=== PATIENT | female | born 1960 | race Hispanic/Latino ===

== ENCOUNTER 2017-12-17 16:30 | Emergency (ER) | payer OTHER ==
--- OUTSIDE RECORDS SUMMARY | 2017-12-17 16:32 | XMS REPORT ---
:1960 [facility] Team Providers Name Role Phone Ambrose Gonzales Provider Role Unavailable Allergies, Adverse Reactions, Alerts Substance Reaction Event Type N.K.D.A. Info Not Available Non Drug Allergy Problems Problem Type Condition Code Onset Dates Condition Status Assessment Mixed hyperlipidemia E78.2 Active Assessment Body mass index (BMI) of 40.0-44.9 Z68.41 Active in adult Assessment Essential hypertension I10 Active Problem Hyperglycemia R73.9 Active Problem Depression with anxiety F41.8 Active Problem Essential hypertension I10 Active Problem Gastroesophageal reflux disease K21.9 Active without esophagitis Problem Body mass index (BMI) of 40.0-44.9 Z68.41 Active in adult Problem Mixed hyperlipidemia E78.2 Active Problem Primary insomnia F51.01 Active Assessment Depression with anxiety F41.8 Active Assessment Viral upper respiratory tract J06.9 Active infection Assessment Hyperglycemia R73.9 Active Medications Medication Code Code Instructions Start End Status Dosage System Date Date Pyridium [facility] 50275352760 200 MG Orally Active 1 tablet Three times a after day meals Carvedilol [facility] 43387989134 12.5 MG Orally October 07, Active bid 2017 Lopid [facility] 79928429980 600 MG Orally Active 1 tablet Twice a day Esomeprazole [facility] [address]-54 20 MG Orally Active 1 tablet Magnesium Once a day Contrave [facility] 35420166813 8-90 MG Orally Active 2 tablets Twice a day Hyzaar [facility] [address]-85 100-25 Orally Active 1 tablet Once a day Aspirin [facility] 58947184929 81 MG Orally Active 1 tablet Once a day Metformin HCl [facility] 53225531201 500 MG Orally Active 1 tablet Twicece a day with a meal Lexapro [facility] 82059679867 10 MG Orally Active 1 tablet Once a day Carvedilol [facility] 25331324376 12.5 mg AM, October 07, Active with food 6.25 mg PM 2017 Orally as directed Trazodone HCl [facility] 82704973875 50 MG Orally Active 1 tablet Once a day at bedtime as needed Fluticasone [facility] 25289931528 50 MCG/ACT October 07, Active 1 spray in Propionate Nasally Once a 2018 each day nostril Lopressor [facility] [address]-22 50 Orally Twice September Active 1 tablet a day , with food 2017 Results No Known Results Summary Purpose eClinicalWorks Submission
--- OUTSIDE RECORDS SUMMARY | 2017-12-17 16:32 | XMS REPORT ---
:1960 Author Organization e[employer] Care Team Providers Name Role Phone Romy Loyola Provider Role Unavailable Allergies, Adverse Reactions, Alerts Substance Reaction Event Type N.K.D.A. Info Not Available Non Drug Allergy Problems Problem Type Condition Code Onset Dates Condition Status Assessment Acute pain of right hip M25.551 Active Problem Body mass index (BMI) of 40.0-44.9 Z68.41 Active in adult Problem Essential hypertension I10 Active Problem Hyperglycemia R73.9 Active Problem Acute pain of right hip M25.551 Active Problem Primary insomnia F51.01 Active Problem Gastroesophageal reflux disease K21.9 Active without esophagitis Problem Depression with anxiety F41.8 Active Problem Mixed hyperlipidemia E78.2 Active Medications Medication Code Code Instructions Start End Status Dosage System Date Date Lexapro [facility] 10152740280 10 MG Orally Active 1 tablet Once a day Pyridium [facility] 64053529918 200 MG Orally Active 1 tablet Three times a after day meals Carvedilol [facility] 25119553005 12.5 MG Orally October 07 Active bid 2017 Contrave [facility] 93253846368 8-90 MG Orally Active 2 tablets Twice a day Metformin HCl [facility] 59185040580 500 MG Orally Active 1 tablet Twicece a day with a meal Aspirin [facility] 77839727262 81 MG Orally Active 1 tablet Once a day Diclofenac ND 37449604292 50 MG Orally October 13October Active 1 tablet Sodium Twice a day 2017, with food 2018 or milk Lopid [facility] 76306702746 600 MG Orally Active 1 tablet Twice a day Carvedilol [facility] 54634423504 12.5 mg AM, October 07, Active with food 6.25 mg PM 2017 Orally as directed Esomeprazole [facility] [address]-05 20 MG Orally Active 1 tablet Magnesium Once a day Trazodone HCl [facility] 29526790351 50 MG Orally Active 1 tablet Once a day at bedtime as needed Fluticasone [facility] 17095087266 50 MCG/ACT October 07, Active 1 spray in Propionate Nasally Once a 2018 each day nostril Hyzaar [facility] [address]-91 100-25 Orally Active 1 tablet Once a day Results No Known Results Summary Purpose eClinicalWorks Submission
--- OUTSIDE RECORDS SUMMARY | 2017-12-17 16:32 | XMS REPORT ---
:1960 Author Organization eClinicalWorks Care Team Providers Name Role Phone Ambrose Gonzales Provider Role Unavailable Allergies No Known Allergies Problems Problem Type Condition Code Onset Dates Condition Status Assessment Right hip pain M25.551 Active Problem Body mass index (BMI) of 40.0-44.9 Z68.41 Active in adult Assessment Depression with anxiety F41.8 Active Problem Essential hypertension I10 Active Problem Hyperglycemia R73.9 Active Problem Acute pain of right hip M25.551 Active Problem Primary insomnia F51.01 Active Problem Gastroesophageal reflux disease K21.9 Active without esophagitis Problem Depression with anxiety F41.8 Active Problem Mixed hyperlipidemia E78.2 Active Medications Medication Code Code Instructions Start End Status Dosage System Date Date Fluticasone [facility] 98316911083 50 MCG/ACT October 07, Active 1 spray in Propionate Nasally Once a 2018 each day nostril Contrave [facility] 75573340299 8-90 MG Orally Active 2 tablets Twice a day Hyzaar [facility] [address]-69 100-25 Orally Active 1 tablet Once a day Aspirin ND 24312796127 81 MG Orally Active 1 tablet Once a day Metformin HCl ND 97728027240 500 MG Orally Active 1 tablet Twicece a day with a meal Diclofenac ND 54430819385 50 MG Orally October 13October Active 1 tablet Sodium Twice a day 2017, with food 2018 or milk Trazodone HCl ND 34326702108 50 MG Orally Active 1 tablet Once a day at bedtime as needed Carvedilol ND 61169535121 12.5 MG Orally October 07, Active bid 2017 Esomeprazole [facility] [address]-57 20 MG Orally Active 1 tablet Magnesium Once a day Lopid ND 00958506628 600 MG Orally Active 1 tablet Twice a day Pyridium ND 54033181541 200 MG Orally Active 1 tablet Three times a after day meals Lexapro [facility] 00783721604 10 MG Orally Active 1 tablet Once a day Carvedilol [facility] 61829480858 12.5 mg AM, October 07, Active with food 6.25 mg PM 2018 Orally as directed Results No Known Results Summary Purpose eClinicalWorks Submission
[2017-12-17 17:33] LABS: Absolute Lymphocytes (CBC) 0.8 K/uL (0.7-4.9); Absolute Monocytes 0.6 K/uL (0.1-1.3); Absolute Neutrophil 6.5 K/uL (1.8-8.0); Basophils % 0.3 % (0-1.3); Eosinophils % 0.2 % (0-4.4); Hematocrit 39.7 % (36.0-45.0); Lymphocytes % 10.4 % (15.3-44.8); MCH 30.9 pg (27.0-35.0); MCV 88.1 fL (80-100); MPV 7.7 fL (7.6-11.3); Monocytes % 8.1 % (3.3-12.3); RBC Red Blood Cell Count 4.51 M/uL (3.86-4.86)
[2017-12-17] MEDS ORDERED: NA CHLORIDE 0.9% 1,000 ML ONE (17:33)
[2017-12-17] MEDS ORDERED: ONDANSETRON 4 MG/2 ML VIAL ONE (17:33)
[2017-12-17] MEDS ORDERED: FAMOTIDINE 20 MG/2 ML VIAL IV ONE (17:33)
[2017-12-17 17:54] LABS: Urine Bacteria 20-50 /HPF (<20); Urine RBC <5 /HPF (NONE SEEN)
[2017-12-17 17:55] LABS: Urine Culture Reflex Order NOT NEEDED
[2017-12-17 18:32] LABS: Albumin 4.5 g/dL (3.4-5.0); Bilirubin Direct 0.1 mg/dL (0-0.2); Bilirubin Total 0.4 mg/dL (0.2-1.0); Magnesium 1.9 mg/dL (1.8-2.4); Phosphorus 2.9 mg/dL (2.5-4.9); Protein, Total 9.2 g/dL (6.4-8.2)
[2017-12-17 18:38] LABS: Potassium 3.1 mmol/L (3.5-5.1)
--- NOTE | 2017-12-17 20:04 | RAD REPORT ---
EXAM DESCRIPTION: CT - Abdomen Pelvis W Contrast - 12/17/2017 7:28 pm CLINICAL HISTORY: diarrhea;Abd pain;Nausea / vomiting<Reason For Exam>diarrhea;Abd pain;Nausea / vom iting COMPARISON: <Comparisons> April 2017 TECHNIQUE: Biphasic, helical CT imaging of the abdomen and pelvis was performed following 100 ml non -ionic IV contrast. Oral contrast was given. All CT scans are performed using dose optimization technique as appropriate and may include automated exposure control or mA/KV adjustment according to patient size. FINDINGS: No suspicious findings in the lung bases. The liver, spleen, and pancreas show no suspicious focal findings. Liver shows diffuse fatty infiltra tion. Benign cyst is present anterior right lobe. Cholecystectomy clips are present. No biliary tree dilatation. Symmetric renal function is seen with no hydronephrosis or suspicious renal mass. No pyelonephritis o r acute renal parenchymal process. Contracted urinary bladder shows no suspicious finding. Right adrenal gland is normal. Left adrenal mass is present 2.5 cm in size. The 40 Hounsfield unit at tenuation value does not meet simple adenoma criteria. No dilated bowel loops or bowel wall thickening. Patient has a few small all gastrohepatic ligament l ymph nodes as well as multiple small mesenteric lymph nodes. No free air, free fluid or inflammatory stranding. No hernia, mass or bulky lymphadenopathy. Appendix is normal. No suspicious bony findings. IMPRESSION: No appendicitis or acute GI process identifiable. Patient does have small mesenteric lymph nodes present that could indicate mesenteric adenitis or non specific enteritis. Diffuse fatty infiltration of the liver. Gallbladder is absent. A 2.5 centimeter left adrenal mass is present. This is most likely an adenoma but does not meet stric t diagnostic criteria. No clear change from April 2017. Probability of a malignant process is felt to be low. Repeat imaging in 6 months could be performed to assure stability. Follow-up outpatient a drenal protocol MR study could be performed if there are patient or physician concerns.
--- NOTE | 2017-12-17 20:37 | ER ---
Nurse's Notes [facility] Name: Shirley San Age: 57 yrs Sex: Female : 1960 Arrival Date: 12/17/2017 Time: 16:33 Bed 23 Private MD: Ambrose Gonzales Diagnosis: Nausea and vomiting;Diarrhea, unspecified Presentation: 12/17 16:44 Presenting complaint: Patient states: Reports vomiting and diarrhea for 4 days. Seen by aj PCP 2 days ago. Transition of care: patient was not received from another setting of care. Onset of symptoms was December 13, 2017. Risk Assessment: Do you want to hurt yourself or someone else? Patient reports no desire to harm self or others. Initial Sepsis Screen: Does the patient meet any 2 criteria? No. Patient's initial sepsis screen is negative. Does the patient have a suspected source of infection? No. Patient's initial sepsis screen is negative. Care prior to arrival: None. 16:44 Method Of Arrival: Ambulatory 16:44 Acuity: SAÚL 3 aj Triage Assessment: 16:46 General: Appears in no apparent distress. comfortable, obese, Behavior is calm, aj cooperative, appropriate for age. Pain: Denies pain. Neuro: Level of Consciousness is awake, alert, obeys commands, Oriented to person, place, time, situation, Appropriate for age. Respiratory: Airway is patent Respiratory effort is even, unlabored, Respiratory pattern is regular, symmetrical. GI: Reports diarrhea, vomiting. Derm: Skin is intact, is healthy with good turgor, Skin is pink, warm \T\ dry. normal. Historical: - Allergies: 16:46 No Known Allergies; aj - Home Meds: 16:46 Hyzaar Oral [Active]; Lopressor Oral [Active]; Metformin Oral [Active]; aj - PMHx: 16:46 Diabetes - NIDDM; High Cholesterol; Hypertension; aj - Immunization history:: Adult Immunizations up to date. - Social history:: Smoking status: Patient/guardian denies using tobacco. - Ebola Screening: : Patient negative for fever greater than or equal to 101.5 degrees Fahrenheit, and additional compatible Ebola Virus Disease symptoms Patient denies exposure to infectious person Patient denies travel to an Ebola-affected area in the 21 days before illness onset No symptoms or risks identified at this time. Screenin:51 Abuse screen: Denies threats or abuse. Nutritional screening: No deficits noted. tl3 Tuberculosis screening: No symptoms or risk factors identified. Fall Risk None identified. Assessment: 16:51 General: Appears uncomfortable, well groomed, well developed, well nourished, Behavior tl3 is calm, cooperative, appropriate for age. Pain: Complains of pain in abdomen. Neuro: Level of Consciousness is awake, alert, obeys commands, Oriented to person, place, time, situation, Appropriate for age. Cardiovascular: Patient's skin is warm and dry. Respiratory: Airway is patent Respiratory effort is even, unlabored, Respiratory pattern is regular, symmetrical. GI: Reports upper abdominal pain, cramping, diarrhea, nausea, vomiting, last four days pt has had vomiting and diarrhea, unable to tolerate fluids. : No signs and/or symptoms were reported regarding the genitourinary system. EENT: No signs and/or symptoms were reported regarding the EENT system. Derm: No signs and/or symptoms reported regarding the dermatologic system. Musculoskeletal: No signs and/or symptoms reported regarding the musculoskeletal system. 18:20 Reassessment: Patient appears in no apparent distress at this time. No changes from tl3 previously documented assessment. Patient and/or family updated on plan of care and expected duration. Pain level reassessed. Patient is alert, oriented x 3, equal unlabored respirations, skin warm/dry/pink. 19:22 Reassessment: Patient appears in no apparent distress at this time. No changes from tl3 previously documented assessment. Patient and/or family updated on plan of care and expected duration. Pain level reassessed. Patient is alert, oriented x 3, equal unlabored respirations, skin warm/dry/pink. pt being transported to CT. 20:28 Reassessment: Patient appears in no apparent distress at this time. No changes from tl3 previously documented assessment. Patient and/or family updated on plan of care and expected duration. Pain level reassessed. Patient is alert, oriented x 3, equal unlabored respirations, skin warm/dry/pink. awaiting results of CT, pt resting quietly, no needs at this time. Vital Signs: 16:46 BP 100 / 46; Pulse 102; Resp 16; Temp 98.2; Pulse Ox 98% on R/A; Weight 94.35 kg; aj Height 4 ft. 11 in. (149.86 cm); 16:51 BP 115 / 70; Pulse 96; Resp 18; Pulse Ox 97% on R/A; tl3 17:56 BP 110 / 75; Pulse 95; Resp 18; Pulse Ox 100% ; tl3 18:20 BP 110 / 76; Pulse 70; Resp 18; Pulse Ox 98% on R/A; tl3 20:28 BP 107 / 56; Pulse 95; Resp 18; Pulse Ox 96% on R/A; tl3 16:46 Body Mass Index 42.01 (94.35 kg, 149.86 cm) ED Course: 16:33 Patient arrived in ED. sb2 16:33 Ambrose Gonzales MD is Private Physician. sb2 16:45 Triage completed. aj 16:46 Arm band placed on right wrist. Patient placed in an exam room. aj 16:47 Sneha Cramer, RN is Primary Nurse. aj 16:47 Roque Mccloud PA is PHCP. cp 16:47 Shimon Mendoza MD is Attending Physician. cp 16:48 Marie Medellin, LIZETTE is Primary Nurse. tl3 16:51 Patient has correct armband on for positive identification. Bed in low position. Pulse tl3 ox on. NIBP on. Warm blanket given. 16:51 No provider procedures requiring assistance completed. tl3 17:20 Initial lab(s) drawn, by az, sent to lab. Urine collected: clean catch specimen, clear, jp3 joana colored, Amount Voided: 5mL. 17:25 Inserted saline lock: 22 gauge in right antecubital area, using aseptic technique. jp3 Blood collected. 17:35 Pillow given. jp3 17:35 Phosphorus Sent. jp3 17:35 Magnesium Sent. jp3 17:35 Amylase, Serum Sent. jp3 17:35 Basic Metabolic Panel Sent. jp3 17:35 CBC with Diff Sent. jp3 17:35 Creatinine for Radiology Sent. jp3 17:35 Hepatic Function Sent. jp3 17:35 Lipase Sent. jp3 17:36 Urine Microscopic Only Sent. jp3 17:55 CT that pt has completed drinking her contrast. tl3 19:[address] via wheelchair. nj 19:26 CT completed. Patient tolerated procedure well. Patient moved back from CT. nj 19:28 CT Abd/Pelvis - W/Contrast In Process Unspecified. EDMS 20:58 IV discontinued, intact, bleeding controlled, No redness/swelling at site. Pressure tl3 dressing applied. Administered Medications: 17:37 Drug: NS 0.9% 1000 ml Route: IV; Rate: 1 bolus; Site: right antecubital; Delivery: tl3 Primary tubing; 19:19 Follow up: IV Status: Completed infusion; IV Intake: 1000ml tl3 17:38 Drug: Zofran 4 mg Route: IVP; Infused Over: 2 mins; Site: right antecubital; tl3 19:20 Follow up: Response: No adverse reaction tl3 17:38 Drug: Pepcid 20 mg Route: IVP; Infused Over: 2 mins; Site: right antecubital; tl3 19:20 Follow up: Response: No adverse reaction tl3 20:42 Drug: Potassium Effervescent Tablet 50 mEq Route: PO; tl3 20:59 Follow up: Response: No adverse reaction tl3 20:57 Drug: Zofran 4 mg Route: PO; tl3 20:59 Follow up: Response: Medication administered at discharge. tl3 Intake: 19:19 IV: 1000ml; Total: 1000ml. tl3 Outcome: 20:34 Discharge ordered by . cp 20:58 Discharged to home ambulatory. tl3 20:58 Condition: stable 20:58 Discharge instructions given to patient, Instructed on discharge instructions, follow up and referral plans. medication usage, Demonstrated understanding of instructions, follow-up care, medications, Prescriptions given X 2. 21:00 Patient left the ED. tl3 Signatures: Dispatcher [employer] EDMS Sneha Cramer, RN RN Roque Mason PA PA Vasu Arias Sheri sb2 Marie Medellin RN RN tl3 Luis Bond jp3
--- NOTE | 2017-12-17 20:38 | EDPHYS ---
Physician Documentation [facility] Name: Shirley San Age: 57 yrs Sex: Female : 1960 Arrival Date: 12/17/2017 Time: 16:33 Bed 23 Private MD: Ambrose Gonzales ED Physician Shimon Mendoza HPI: 12/17 17:05 This 57 yrs old Female presents to ER via Ambulatory with complaints of cp Nausea/Vomiting/Diarrhea, Headache. 17:05 The patient presents to the emergency department with nausea, that is moderate, cp vomiting, that is intermittent, diarrhea, that is intermittent, abdominal pain, of the right upper quadrant and left upper quadrant. Onset: The symptoms/episode began/occurred 4 day(s) ago. Historical: - Allergies: 16:46 No Known Allergies; aj - Home Meds: 16:46 Hyzaar Oral [Active]; Lopressor Oral [Active]; Metformin Oral [Active]; aj - PMHx: 16:46 Diabetes - NIDDM; High Cholesterol; Hypertension; aj - Immunization history:: Adult Immunizations up to date. - Social history:: Smoking status: Patient/guardian denies using tobacco. - Ebola Screening: : Patient negative for fever greater than or equal to 101.5 degrees Fahrenheit, and additional compatible Ebola Virus Disease symptoms Patient denies exposure to infectious person Patient denies travel to an Ebola-affected area in the 21 days before illness onset No symptoms or risks identified at this time. ROS: 17:10 Constitutional: Negative for body aches, chills, fever, poor PO intake. cp 17:10 Eyes: Negative for injury, pain, redness, and discharge. cp Exam: 17:15 Constitutional: The patient appears in no acute distress, alert, awake, cp non-diaphoretic, non-toxic, well developed, well nourished. 17:15 Head/Face: Normocephalic, atraumatic. cp 17:15 Eyes: Pupils equal round and reactive to light, extra-ocular motions intact. Lids and lashes normal. Conjunctiva and sclera are non-icteric and not injected. Cornea within normal limits. Periorbital areas with no swelling, redness, or edema. ENT: Nares patent. No nasal discharge, no septal abnormalities noted. Tympanic membranes are normal and external auditory canals are clear. Oropharynx with no redness, swelling, or masses, exudates, or evidence of obstruction, uvula midline. Mucous membranes moist. Chest/axilla: Normal chest wall appearance and motion. Nontender with no deformity. No lesions are appreciated. 17:15 Cardiovascular: Rate: tachycardic, Rhythm: regular, Edema: is not appreciated, JVD: is not appreciated. 17:15 Respiratory: the patient does not display signs of respiratory distress, Respirations: normal, no use of accessory muscles, no retractions, no splinting, no tachypnea, labored breathing, is not present, Breath sounds: are clear throughout, no decreased breath sounds, no stridor, no wheezing. 17:15 Abdomen/GI: Inspection: obese Bowel sounds: active, all quadrants, Palpation: abdomen is soft and non-tender, in all quadrants, rebound tenderness, is not appreciated, voluntary guarding, is not appreciated, involuntary guarding, is not appreciated. 17:15 Back: pain, is absent, ROM is normal. 17:15 Skin: cellulitis, is not appreciated, no rash present. 17:15 Neuro: Orientation: to person, place \T\ time. Mentation: lucid, able to follow commands, Cerebellar function: is grossly normal, Motor: moves all fours, strength is normal, Sensation: no obvious gross deficits. Vital Signs: 16:46 BP 100 / 46; Pulse 102; Resp 16; Temp 98.2; Pulse Ox 98% on R/A; Weight 94.35 kg; aj Height 4 ft. 11 in. (149.86 cm); 16:51 BP 115 / 70; Pulse 96; Resp 18; Pulse Ox 97% on R/A; tl3 17:56 BP 110 / 75; Pulse 95; Resp 18; Pulse Ox 100% ; tl3 18:20 BP 110 / 76; Pulse 70; Resp 18; Pulse Ox 98% on R/A; tl3 20:28 BP 107 / 56; Pulse 95; Resp 18; Pulse Ox 96% on R/A; tl3 16:46 Body Mass Index 42.01 (94.35 kg, 149.86 cm) aj MDM: 16:56 Patient medically screened. cp 18:00 Differential diagnosis: gastritis, pancreatitis, appendicitis, diverticulitis, viral cp gastroenteritis, gastroenteritis. 20:32 Data reviewed: vital signs, nurses notes, lab test result(s), radiologic studies, CT cp scan. 20:32 Counseling: I had a detailed discussion with the patient and/or guardian regarding: the cp historical points, exam findings, and any diagnostic results supporting the discharge/admit diagnosis, lab results, radiology results, to return to the emergency department if symptoms worsen or persist or if there are any questions or concerns that arise at home. Response to treatment: the patient's symptoms have markedly improved after treatment, VSS. Nausea and pain improved. Will discharge to home for continued monitoring. Special discussion: Based on the patient's Hx, exam, and Dx evaluation, there is no indication for emergent surgery or inpatient Tx. It is understood by the patient/guardian that if the Sx's persist or worsen they need to return immediately for re-evaluation. 12/17 16:59 Order name: Amylase, Serum; Complete Time: 20:14 12/17 16:59 Order name: Basic Metabolic Panel; Complete Time: 20:14 12/17 20:29 Interpretation: Normal except: NA 132; CL 93; GLUC 129; BUN 20; GFR 57; K 3.1. 12/17 16:59 Order name: CBC with Diff; Complete Time: 20:14 12/17 20:28 Interpretation: Normal except: PLT 456; CHICHI% 81.0; LYM% 10.4. 12/17 16:59 Order name: Creatinine for Radiology; Complete Time: 20:14 12/17 20:29 Interpretation: Normal except: GFR 57. 12/17 16:59 Order name: Hepatic Function; Complete Time: 20:14 12/17 20:28 Interpretation: Normal except: AST 54; TP 9.2; GLOB 4.7; A/G 1.0. 12/17 16:59 Order name: Lipase; Complete Time: 20:14 cp 12/17 16:59 Order name: Urine Microscopic Only; Complete Time: 20:14 12/17 20:28 Interpretation: Normal except: UWBC 5-10; UBACT 20-50; SQEPI 5-10. 12/17 16:59 Order name: CT Abd/Pelvis - W/Contrast; Complete Time: 20:14 cp 12/17 16:59 Order name: Magnesium; Complete Time: 20:14 cp 12/17 16:59 Order name: Phosphorus; Complete Time: 20:14 cp 12/17 17:57 Order name: Urine Dipstick--Ancillary (enter results) bd 12/17 16:59 Order name: Urine Test (obtain specimen); Complete Time: 17:35 cp 12/17 16:59 Order name: IV Saline Lock; Complete Time: 17:36 cp 12/17 16:59 Order name: Labs collected and sent; Complete Time: 17:36 cp 12/17 16:59 Order name: Urine Dipstick-Ancillary (obtain specimen); Complete Time: 17:36 cp 12/17 20:30 Order name: PO challenge; Complete Time: 20:36 cp Administered Medications: 17:37 Drug: NS 0.9% 1000 ml Route: IV; Rate: 1 bolus; Site: right antecubital; Delivery: tl3 Primary tubing; 19:19 Follow up: IV Status: Completed infusion; IV Intake: 1000ml tl3 17:38 Drug: Zofran 4 mg Route: IVP; Infused Over: 2 mins; Site: right antecubital; tl3 19:20 Follow up: Response: No adverse reaction tl3 17:38 Drug: Pepcid 20 mg Route: IVP; Infused Over: 2 mins; Site: right antecubital; tl3 19:20 Follow up: Response: No adverse reaction tl3 20:42 Drug: Potassium Effervescent Tablet 50 mEq Route: PO; tl3 20:59 Follow up: Response: No adverse reaction tl3 20:57 Drug: Zofran 4 mg Route: PO; tl3 20:59 Follow up: Response: Medication administered at discharge. tl3 Disposition: 12/18 08:10 Co-signature as Attending Physician, Shimon Mendoza MD. rn Disposition: 12/17/17 20:34 Discharged to Home. Impression: Nausea and vomiting, Diarrhea, unspecified. - Condition is Stable. - Discharge Instructions: Food Choices to Help Relieve Diarrhea, Adult, Diarrhea, Adult, Nausea and Vomiting, Adult. - Prescriptions for Bentyl 20 mg Oral Tablet - take 1 tablet by ORAL route every 6 hours As needed; 20 tablet. Zofran 4 mg Oral Tablet - take 1 tablet by ORAL route every 12 hours As needed; 20 tablet. - Medication Reconciliation Form, Thank You Letter, Antibiotic Education, Prescription Opioid Use form. - Follow up: Private Physician; When: 1 - 2 days; Reason: Recheck today's complaints. - Problem is new. - Symptoms have improved. Signatures: Dispatcher [employer] EDSneha Johnson RN RN Shimon Robles MD MD rn Page, Corey, PA PA cp Lowrey, Tammy, RN RN tl3 Corrections: (The following items were deleted from the chart) 12/17 17:43 12/16 17:10 Constitutional: Negative for body aches, chills, fever, poor PO intake, cp cp 12/17 17:12/16 17:10 Eyes: Negative for injury, pain, redness, and discharge, cp cp 12/17 17:12/16 17:10 ENT: Negative for drainage from ear(s), ear pain, sore throat, difficulty cp swallowing, difficulty handling secretions, cp 12/17 17:43 12/16 17:10 Cardiovascular: Negative for chest pain, edema, palpitations, cp cp 12/17 17:12/16 17:10 Respiratory: Negative for cough, shortness of breath, wheezing, cp cp 12/17 17:43 12/16 17:10 Abdomen/GI: Positive for abdominal pain, nausea, vomiting, and diarrhea, cp Negative for constipation, anorexia, dysphagia, hematemesis, black/tarry stool, rectal bleeding, cp 12/17 17:43 12/16 17:10 Back: Negative for pain at rest, pain with movement, radiated pain, cp cp 12/17 17:43 12/16 17:10 : Negative for urinary symptoms, cp cp 12/17 17:12/16 17:10 Skin: Negative for cellulitis, rash, cp cp 12/17 16:12/16 17:10 Neuro: Positive for headache, Negative for altered mental status, cp dizziness, syncope, near syncope, weakness, cp 12/17 17:43 12/16 17:10 All other systems are negative, cp cp 12/17 20: 20:28 Normal except: NA 132; CL 93; GLUC 129; BUN 20; GFR 57. cp cp 21:00 20:34 12/17/2017 20:34 Discharged to Home. Impression: Nausea and vomiting; Diarrhea, tl3 unspecified. Condition is Stable. Forms are Medication Reconciliation Form, Thank You Letter, Antibiotic Education, Prescription Opioid Use. Follow up: Private Physician; When: 1 - 2 days; Reason: Recheck today's complaints. Problem is new. Symptoms have improved. cp
[2017-12-17] MEDS ORDERED: POTASSIUM 25 MEQ EFFERV TAB ONE (20:42)
[2017-12-17] MEDS ORDERED: ONDANSETRON 4 MG (ODT) TAB ONE (21:01)
[2017-12-17 21:23] LABS: Urine Blood TRACE (NEG); Urine Glucose NEGATIVE (NEG); Urine Protein 2+ (NEG); Urine Specific Gravity >1.030 (1.005-1.030)
[2017-12-17 21:27] VITALS: TEMP 98.2
[2017-12-17 21:31] VITALS: BP 107/56; O2SAT 96
== END 2017-12-17 21:00 | disposition home or self-care (01) ==
LOC: ER 16:30
DX: R11.2 Nausea with vomiting, unspecified (principal); R19.7 Diarrhea, unspecified; E11.9 Type 2 diabetes mellitus without complications; I10 Essential (primary) hypertension
CPT/HCPCS: 36415; 74177; 80048; 80076; 82150; 83690; 83735; 84100; 85025; 96361; 96374; 96375; 99284; J2405; J7030; Q9967; 81003; 81015

== ENCOUNTER 2019-07-26 16:06 | Emergency (ER) | payer OTHER ==
--- OUTSIDE RECORDS SUMMARY | 2019-07-26 16:09 | XMS REPORT ---
:1960 Author Organization e[employer] Care Team Providers Name Role Phone Trice Kaur Provider Role Unavailable Allergies No Known Allergies Problems Problem Type Condition Code Onset Dates Condition Status Problem Primary insomnia F51.01 Active Problem Depression with anxiety F41.8 Active Problem Mixed hyperlipidemia E78.2 Active Problem Gastroesophageal reflux disease K21.9 Active without esophagitis Problem Seasonal allergic rhinitis, J30.2 Active unspecified trigger Problem Body mass index (BMI) of 40.0-44.9 Z68.41 Active in adult Problem Muscle strain T14.8XXA Active Problem Essential hypertension I10 Active Problem Hyperglycemia R73.9 Active Problem Diabetes 1.5, 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
--- OUTSIDE RECORDS SUMMARY | 2019-07-26 16:09 | XMS REPORT ---
:1960 Author Organization [employer] Care Team Providers Name Role Phone Romy Loyola Provider Role Unavailable Allergies, Adverse Reactions, Alerts Substance Reaction Event Type N.K.D.A. Info Not Available Non Drug Allergy Problems Problem Type Condition Code Onset Dates Condition Status Problem Primary insomnia F51.01 Active Problem Depression with anxiety F41.8 Active Problem Mixed hyperlipidemia E78.2 Active Assessment Muscle strain T14.8XXA Active Assessment Acute pain of right hip M25.551 Active Problem Gastroesophageal reflux disease K21.9 Active without esophagitis Problem Seasonal allergic rhinitis, J30.2 Active unspecified trigger Problem Body mass index (BMI) of 40.0-44.9 Z68.41 Active in adult Problem Muscle strain T14.8XXA Active Problem Essential hypertension I10 Active Problem Hyperglycemia R73.9 Active Problem Diabetes 1.5, 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 Problem Acute pain of right hip M25.551 Active Medications Medication Code Code Instructions Start End Status Dosage System Date Date Lopid [facility] 88289699831 600 MG Active TAKE ONE TABLET BY MOUTH TWICE A DAY Fluticasone [facility] 37495060577 50 MCG/ACT Active 1 spray Propionate Nasally Once a in each day nostril Victoza [facility] [address]-02 Active not defined Lipitor ND 55619602395 20 MG Active TAKE ONE TABLET BY MOUTH EVERY NIGHT AT BEDTIME Farxiga ND 09906346106 5mg By Mouth Dec Active 1 Dailly 2018 Pyridium ND 56330416583 200 MG Orally Active 1 tablet Three times a after day meals Metformin HCl ND 03411112958 850 MG Orally Active 1 tablet Twicece a day with a meal Coreg [facility] 28795649970 12.5 MG Active TAKE ONE TABLET BY MOUTH TWICE A DAY Claritin ND 57311642849 10 MG Orally June Active 1 tablet Once a day 2018 HydrOXYzine HCl ND 63628998365 50 MG Orally Dec 16, Active 1 tablet every 6 hrs 2017 as needed Lexapro [facility] 51538887900 20 MG Active TAKE ONE TABLET BY MOUTH DAILY Carvedilol [facility] 09403883082 25 MG Orally Active bid bid Esomeprazole [facility] 88226068601 20 MG Active TAKE ONE Magnesium CAPSULE BY MOUTH DAILY Trazodone HCl [facility] 06554401081 50 MG Orally Active 1 tablet Once a day at bedtime as needed Aspirin [facility] 27683932032 81 MG Orally Active 1 tablet Once a day Methocarbamol [facility] 51861383907 500 MG Orally Dec 09, Dec 16, Active 1 tablet every 8 hrs 2018 2018 for muscle pain Esomeprazole [facility] [address]-06 20 MG Orally Active 1 tablet Magnesium Once a day Results No Known Results Summary Purpose eClinicalWorks Submission
--- NOTE | 2019-07-26 16:29 | ER ---
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 ll1 Couldn't breathe well. Fell onto her knees. Finally, vomited up the pill. Stated she had chest pain just after this episode, it has resolved now. Coronavirus screen: Proceed with normal triage. Patient denies a cough. Patient denies shortness of breath or difficulty breathing. Patient denies measured and/or subjective temperature greater than 100.4F prior to today's visit. Patient denies travel on a cruise ship or to a country the [facility] currently lists as an affected area. Patient denies contact with known and/or suspected case of COVID-19. Ebola Screen: Patient denies travel to an Ebola-affected area in the 21 days before illness onset. Initial Sepsis Screen: Does the patient meet any 2 criteria? No. Patient's initial sepsis screen is negative. Does the patient have a suspected source of infection? No. Patient's initial sepsis screen is negative. Risk Assessment: Do you want to hurt yourself or someone else? Patient reports no desire to harm self or others. Onset of symptoms was July 26, 2019. 16:11 Method Of Arrival: EMS: [facility] 1 16:11 Acuity: SAÚL 4 1 16:21 Care prior to arrival: None. Mechanism of Injury: No Mechanism of Injury. Trauma event ll1 details: Injury occurred in the [facility]. Trauma Activation: Not Applicable Physician: ED Physician; Name: ; Notified At: ; Arrived At: Physician: General Surgeon; Name: ; Notified At: ; Arrived At: Physician: Radiology; Name: ; Notified At: ; Arrived At: Physician: Respiratory; Name: ; Notified At: ; Arrived At: Physician: Lab; Name: ; Notified At: ; Arrived At: Historical: - Allergies: 16:15 No Known Allergies; ll1 - PMHx: 16:15 Hypertension; High Cholesterol; Diabetes - NIDDM; ll1 - Immunization history:: Adult Immunizations up to date. - Social history:: Smoking status: Patient denies any tobacco usage or history of. Patient/guardian denies using alcohol, street drugs, tobacco products. - Immunization history: Last tetanus immunization: unknown. Screenin:16 Abuse screen: Denies threats or abuse. Nutritional screening: No deficits noted. ll1 Tuberculosis screening: No symptoms or risk factors identified. Fall Risk None identified. Total Walker Fall Scale indicates No Risk (0-24 pts). Primary Survey: 16:17 NO uncontrolled hemorrhage observed. A: The patient is alert. Airway: patent. ll1 Breathing/Chest: Respiratory pattern: regular, Respiratory effort: spontaneous, unlabored, Breath sounds: clear, Chest inspection: symmetrical rise and fall of the chest. Circulation: Cardiac rhythm: sinus rhythm Heart tones present. Pulses: palpable right radial artery and left radial artery. Skin color: pink, Skin temperature: warm, dry. Disability Alert. Exposure/Environment: A warming method has been applied: A warm blanket has been provided to the patient. 16:36 Reassessment Airway Airway Patent Breathing/Chest Respiratory pattern Regular ll1 Respiratory effort Spontaneous Unlabored Breath sounds Clear Chest inspection Symmetrical Circulation Heart tones Present Pulses Palpable Color [place] Temperature Warm. Assessment: 16:20 General: Appears in no apparent distress. Behavior is calm, cooperative. Pain: Denies ll1 pain. Neuro: No deficits noted. Cardiovascular: No deficits noted. Respiratory: Airway is patent Trachea midline Respiratory effort is even, unlabored, Respiratory pattern is regular, symmetrical, Breath sounds are clear bilaterally. Denies cough, shortness of breath. GI: No deficits noted. 16:36 Reassessment: Patient appears in no apparent distress at this time. No changes from ll1 previously documented assessment. Patient and/or family updated on plan of care and expected duration. Pain level reassessed. Patient is alert, oriented x 3, equal unlabored respirations, skin warm/dry/pink. Vital Signs: 16:11 BP 133 / 85; Pulse 83; Resp 18; Temp 98.3; Pulse Ox 97% ; Pain 0/10; ll1 16:33 BP 128 / 82; Pulse 87; Resp 18; Pulse Ox 96% ; Pain 0/10; ll1 Nora Coma Score: 16:18 Eye Response: spontaneous(4). Verbal Response: oriented(5). Motor Response: obeys ll1 commands(6). Total: 15. Trauma Score (Adult): 16:18 Eye Response: spontaneous(1); Verbal Response: oriented(1); Motor Response: obeys ll1 commands(2); Systolic BP: > 89 mm Hg(4); Respiratory Rate: 10 to 29 per min(4); Nora Score: 15; Trauma Score: 12 ED Course: 16:10 Patient arrived in ED. ll1 16:11 [facility]il[facility]olasco [facility] pm1 16:11 Roque Ramírez MD is Attending Physician. pm1 16:14 Triage completed. ll1 16:16 Arm band placed on Patient placed in an exam room, on a stretcher. ll1 16:19 Patient has correct armband on for positive identification. Bed in low position. Call ll1 light in reach. Side rails up X 1. 16:19 Patient maintains SpO2 saturation greater than 95% on room air. ll1 16:22 Thermoregulation: warm blanket given to patient. ll1 16:33 Gen De Luna, RN is Primary Nurse. ll1 16:37 No provider procedures requiring assistance completed. Patient did not have IV access ll1 during this emergency room visit. Administered Medications: No medications were administered Intake: 16:18 PO: 0ml; Total: 0ml. ll1 Outcome: 16:28 Discharge ordered by . pm1 16:37 Discharged to home ambulatory. ll1 16:37 Condition: stable 16:37 Discharge instructions given to patient, Instructed on discharge instructions, follow up and referral plans. Demonstrated understanding of instructions, follow-up care. 16:37 Patient's length of stay was not longer than 2 hours. ll1 16:38 Patient left the ED. ll1 Signatures: Maximiliano Nolasco NP PHARMACY HELPER pm1 Gen De Luna, RN RN ll1
--- NOTE | 2019-07-26 16:29 | EDPHYS ---
Physician Documentation [facility] Name: Shirley San Age: 58 yrs Sex: Female : 1960 Arrival Date: 07/26/2019 Time: 16:10 Bed 24 Private MD: ED Physician Roque Ramírez HPI: 07/25 16:21 This 58 yrs old Female presents to ER via EMS with complaints of pm1 Choked/Choking. 16:21 The patient presents with choking on multivitamin. Onset: The symptoms/episode pm1 began/occurred just prior to arrival. Severity of symptoms: in the emergency department the symptoms have resolved, at home prior to EMS arrival. Associated signs and symptoms: The patient has no apparent associated signs or symptoms. The patient has not experienced similar symptoms in the past. Patient was taking her multivitamin with tea. Her multivitamin got stuck in her throat and she felt like she could not talk and she was wheezing. No Heimlich maneuver by herself or by family. She stuck her fingers into the back of her mouth and vomited up the pill. Patient felt fine on EMS arrival but her family wanted her to be evaluated. Patient without any complaints or symptoms on arrival. Historical: - Allergies: 16:15 No Known Allergies; ll1 - PMHx: 16:15 Hypertension; High Cholesterol; Diabetes - NIDDM; ll1 - Immunization history:: Adult Immunizations up to date. - Social history:: Smoking status: Patient denies any tobacco usage or history of. Patient/guardian denies using alcohol, street drugs, tobacco products. - Immunization history: Last tetanus immunization: unknown. ROS: 16:21 Constitutional: Negative for fever, chills, and weight loss, ENT: Negative for injury, pm1 pain, and discharge, Neck: Negative for injury, pain, and swelling, Cardiovascular: Negative for chest pain, palpitations, and edema, Respiratory: Negative for shortness of breath, cough, wheezing, and pleuritic chest pain, Abdomen/GI: Negative for abdominal pain, nausea, vomiting, diarrhea, and constipation, Back: Negative for injury and pain, MS/Extremity: Negative for injury and deformity, Skin: Negative for injury, rash, and discoloration. 16:21 All other systems are negative. Exam: 16:21 Constitutional: This is a well developed, well nourished patient who is awake, alert, pm1 and in no acute distress. Head/Face: Normocephalic, atraumatic. Chest/axilla: Normal chest wall appearance and motion. Nontender with no deformity. No lesions are appreciated. Cardiovascular: Regular rate and rhythm. No pulse deficits. Respiratory: Lungs have equal breath sounds bilaterally, clear to auscultation and percussion. No rales, rhonchi or wheezes noted. No increased work of breathing, no retractions or nasal flaring. Abdomen/GI: Soft, non-tender, with normal bowel sounds. No distension or tympany. No guarding or rebound. No evidence of tenderness throughout. Back: No spinal tenderness. No costovertebral tenderness. Full range of motion. Skin: Warm, dry with normal turgor. Normal color with no rashes, no lesions, and no evidence of cellulitis. MS/ Extremity: Pulses equal, no cyanosis. Neurovascular intact. Full, normal range of motion. 16:21 Neuro: Exam negative for acute changes, Orientation: is normal, Motor: is normal, moves all fours. Vital Signs: 16:11 BP 133 / 85; Pulse 83; Resp 18; Temp 98.3; Pulse Ox 97% ; Pain 0/10; ll1 16:33 BP 128 / 82; Pulse 87; Resp 18; Pulse Ox 96% ; Pain 0/10; ll1 Nora Coma Score: 16:18 Eye Response: spontaneous(4). Verbal Response: oriented(5). Motor Response: obeys ll1 commands(6). Total: 15. Trauma Score (Adult): 16:18 Eye Response: spontaneous(1); Verbal Response: oriented(1); Motor Response: obeys ll1 commands(2); Systolic BP: > 89 mm Hg(4); Respiratory Rate: 10 to 29 per min(4); [place] Score: 15; Trauma Score: 12 MDM: 16:11 Patient medically screened. pm1 16:21 Data reviewed: vital signs. Data interpreted: Pulse oximetry: on room air is 97 %. pm1 Interpretation: normal. Counseling: I had a detailed discussion with the patient and/or guardian regarding: the historical points, exam findings, and any diagnostic results supporting the discharge/admit diagnosis, the need for outpatient follow up, to return to the emergency department if symptoms worsen or persist or if there are any questions or concerns that arise at home. Administered Medications: No medications were administered Disposition: 07/26 07:39 Co-signature as Attending Physician, Roque Ramírez MD I agree with the assessment and [facility] plan of care. Disposition: 07/26/19 16:28 Discharged to Home. Impression: Foreign body in pharynx - resolved. - Condition is Stable. - Discharge Instructions: Choking, Adult. - Medication Reconciliation Form, Thank You Letter, Antibiotic Education, Prescription Opioid Use form. - Follow up: Emergency Department; When: As needed; Reason: Worsening of condition. Follow up: Private Physician; When: 2 - 3 days; Reason: Recheck today's complaints, Continuance of care, Re-evaluation by your physician. - Problem is new. - Symptoms are resolved. Signatures: Roque Ramírez, Maximiliano Woodard MD, cha, TECHNICAL ACCOUNT MANAGER TECHNICAL ACCOUNT MANAGER pm1 Gen De Luna, RN RN ll1 Corrections: (The following items were deleted from the chart) 07/25 16:38 16:28 07/26/2019 16:28 Discharged to Home. Impression: Foreign body in pharynx - ll1 resolved. Condition is Stable. Forms are Medication Reconciliation Form, Thank You Letter, Antibiotic Education, Prescription Opioid Use. Follow up: Emergency Department; When: As needed; Reason: Worsening of condition. Follow up: Private Physician; When: 2 - 3 days; Reason: Recheck today's complaints, Continuance of care, Re-evaluation by your physician. Problem is new. Symptoms are resolved. pm1
== END 2019-07-26 16:38 | disposition home or self-care (01) ==
LOC: ER 16:06
DX: T17.298A Other foreign object in pharynx causing other injury, initial encounter (principal); I10 Essential (primary) hypertension
CPT/HCPCS: 99284

== ENCOUNTER 2020-10-02 14:23 | Emergency (ER) | payer OTHER ==
--- NOTE | 2020-10-02 16:26 | EDPHYS ---
Physician Documentation [facility] Name: Shirley San Age: 59 yrs Sex: Female : 1960 Arrival Date: 10/02/2020 Time: 14:27 Bed 12 Private MD: ED Physician Roque Ramírez HPI: 10/02 16:19 This 59 yrs old Female presents to ER via Ambulatory with complaints of Left cp Ankle Pain. 16:20 The patient presents with pain, that is acute. The complaints affect the left lateral cp ankle. Context: resulted from an unknown cause, the patient can fully bear weight, the patient is able to ambulate, with mild difficulty. Onset: The symptoms/episode began/occurred yesterday. Modifying factors: the symptoms are aggravated by weight bearing. 16:20 Associated signs and symptoms: Pertinent negatives calf tenderness, numbness, weakness. cp 16:20 Treatment prior to arrival includes: no previous treatment. cp Historical: - Allergies: 14:36 unknown antibiotic; ss - PMHx: 14:36 Diabetes - NIDDM; High Cholesterol; Hypertension; ss - Immunization history:: Adult Immunizations up to date. - Social history:: Smoking status: Patient denies any tobacco usage or history of. ROS: 16:21 Constitutional: Negative for body aches, chills, fever, poor PO intake. cp 16:21 Cardiovascular: Negative for chest pain. cp 16:21 Respiratory: Negative for cough, shortness of breath, wheezing. 16:21 Abdomen/GI: Negative for abdominal pain, nausea, vomiting, and diarrhea. 16:21 Back: Negative for pain at rest, pain with movement. 16:21 MS/extremity: Positive for pain, swelling, tenderness, of the left lateral ankle. 16:21 All other systems are negative. Exam: 16:23 Constitutional: The patient appears in no acute distress, alert, awake, non-toxic, well cp developed, well nourished. 16:23 Head/Face: Normocephalic, atraumatic. cp 16:23 Chest/axilla: Inspection: normal. 16:23 Cardiovascular: Rate: normal. 16:23 Respiratory: the patient does not display signs of respiratory distress, Respirations: normal, no use of accessory muscles, no retractions. 16:23 Musculoskeletal/extremity: Extremities: grossly normal except: noted in the left lateral ankle: pain, swelling, tenderness, ROM: limited passive range of motion due to pain, in the left ankle, Pulses: noted to be 2+ in the left dorsalis pedis artery, Sensation intact. Achilles tendon palpated and intact. Vital Signs: 14:33 BP 105 / 60; Pulse 85; Resp 14; Temp 98.6(TE); Pulse Ox 99% on R/A; Weight 68.04 kg; ss Height 4 ft. 11 in. (149.86 cm); Pain 7/10; 14:33 Body Mass Index 30.30 (68.04 kg, 149.86 cm) ss MDM: 16:08 Patient medically screened. [facility] 16:22 Data reviewed: vital signs, nurses notes, radiologic studies, plain films. Test cp interpretation: by ED physician or midlevel provider: xrays of left ankle negative for fracture. 16:25 Differential diagnosis: dislocation, closed fracture, tendonitis, sprain, strain. 16:25 Counseling: I had a detailed discussion with the patient and/or guardian regarding: the cp historical points, exam findings, and any diagnostic results supporting the discharge/admit diagnosis, radiology results. 10/02 15:55 Order name: Ankle Left 3 View XRAY iw 10/02 16:22 Order name: Crutches cp 10/02 16:22 Order name: Ankle Splint: Aircast cp Administered Medications: No medications were administered Disposition: 16:30 Chart complete. 10/03 07:12 Co-signature as Attending Physician, Roque Ramírez MD I agree with the assessment and [facility] plan of care. Disposition: 10/02/20 16:26 Discharged to Home. Impression: Pain in left ankle and joints of left foot. - Condition is Stable. - Discharge Instructions: Elastic Bandage and RICE, Ankle Pain. - Prescriptions for Ibuprofen 800 mg Oral Tablet - take 1 tablet by ORAL route every 8 hours As needed take with food; 30 tablet. - Medication Reconciliation Form, Thank You Letter, Antibiotic Education, Prescription Opioid Use form. - Follow up: Chad Joel MD; When: 1 week; Reason: pain continues. - Problem is new. - Symptoms have improved. Signatures: Dispatcher [employer] Roque Cruz MD MD cha Williams, Irene, RN RN Ruby Bolton RN RN Page, Roque, PA PA cp Corrections: (The following items were deleted from the chart) 10/02 16:57 16:26 10/02/2020 16:26 Discharged to Home. Impression: Pain in left ankle and joints of iw left foot. Condition is Stable. Forms are Medication Reconciliation Form, Thank You Letter, Antibiotic Education, Prescription Opioid Use. Follow up: Dr. Chad Joel; When: 1 week; Reason: pain continues. Problem is new. Symptoms have improved. cp
--- NOTE | 2020-10-02 16:26 | ER ---
Nurse's Notes [facility] Name: Shirley San Age: 59 yrs Sex: Female : 1960 Arrival Date: 10/02/2020 Time: 14:27 Bed 12 Private MD: Diagnosis: Pain in left ankle and joints of left foot Presentation: 10/02 14:33 Chief complaint: Patient states: L foot/ankle pain that began yesterday. No known ss injury. PT states, "I may have over done it walking.". Coronavirus screen: Client denies travel out of the [place] in the last 14 days. Ebola Screen: Patient denies exposure to infectious person. Patient denies travel to an Ebola-affected area in the 21 days before illness onset. Initial Sepsis Screen: Does the patient meet any 2 criteria? No. Patient's initial sepsis screen is negative. Does the patient have a suspected source of infection? No. Patient's initial sepsis screen is negative. Risk Assessment: Do you want to hurt yourself or someone else? Patient reports no desire to harm self or others. Onset of symptoms was October 01, 2020. 14:33 Method Of Arrival: Ambulatory ss 14:33 Acuity: SAÚL 4 ss Historical: - Allergies: 14:36 unknown antibiotic; ss - PMHx: 14:36 Diabetes - NIDDM; High Cholesterol; Hypertension; ss - Immunization history:: Adult Immunizations up to date. - Social history:: Smoking status: Patient denies any tobacco usage or history of. Vital Signs: 14:33 BP 105 / 60; Pulse 85; Resp 14; Temp 98.6(TE); Pulse Ox 99% on R/A; Weight 68.04 kg; ss Height 4 ft. 11 in. (149.86 cm); Pain 7/10; 14:33 Body Mass Index 30.30 (68.04 kg, 149.86 cm) ED Course: 14:27 Patient arrived in ED. mr 14:36 Triage completed. ss 14:36 Arm band placed on right wrist. ss 15:50 Anahy Rossi, LIZETTE is Primary Nurse. iw 16:08 Roque Mccloud PA is PHCP. cp 16:08 Roque Ramírez MD is Attending Physician. cp 16:20 Ankle Left 3 View XRAY In Process Unspecified. EDMS 16:25 Chad Joel MD is Referral Physician. cp Administered Medications: No medications were administered Outcome: 16:26 Discharge ordered by . cp 16:57 Patient left the ED. iw Signatures: Dispatcher [employer] EDOR Chiquis Alvarenga Anahy Rossi, RN RN iw Ruby Bolton RN RN ss Roque Mccloud, PA PA cp
--- NOTE | 2020-10-02 16:35 | RAD REPORT ---
EXAM DESCRIPTION: RAD - Ankle Left 3 View - 10/02/2020 4:20 pm CLINICAL HISTORY: Pain;Swelling COMPARISON: No comparisons FINDINGS: No fracture, dislocation or periosteal reaction. Tibiotalar joint effusion suspected. Soft tissue swelling is present along the anterior and lateral aspect of the joint. No joint space narrow ing. Small Achilles and moderate plantar spur. IMPRESSION: Soft tissue swelling and suspected joint effusion. No acute bone finding. Plantar and Achilles spurs are present.
[2020-10-02 17:23] VITALS: BP 105/60; TEMP 98.6; O2SAT 99
== END 2020-10-02 16:57 | disposition home or self-care (01) ==
LOC: ER 14:23
DX: M25.572 Pain in left ankle and joints of left foot (principal); I10 Essential (primary) hypertension
CPT/HCPCS: 99282

== ENCOUNTER 2020-10-24 23:55 | Emergency (ER) | payer OTHER ==
--- NOTE | 2020-10-25 03:04 | ER ---
Nurse's Notes [facility] Name: Shirley San Age: 59 yrs Sex: Female : 1960 Arrival Date: 10/25/2020 Time: 00:32 Bed DIS2 Private MD: Diagnosis: Coronavirus infection, unspecified Presentation: 10/25 00:42 Ebola Screen: No symptoms or risks identified at this time. Onset of symptoms was October. 00:42 Chief complaint: Patient states: Reports she was around a family member who was ea recently diagnosed with covid. Coronavirus screen: reports possible covid exposure. Initial Sepsis Screen: Does the patient meet any 2 criteria? No. Patient's initial sepsis screen is negative. Does the patient have a suspected source of infection? No. Patient's initial sepsis screen is negative. Risk Assessment: Do you want to hurt yourself or someone else? Patient reports no desire to harm self or others. 00:42 Method Of Arrival: Ambulatory ea 00:42 Acuity: SAÚL 5 ea Historical: - Allergies: 00:43 unknown antibiotic; ea - Home Meds: 00:43 Metformin Oral [Active]; Lopressor Oral [Active]; Hyzaar Oral [Active]; ea - PMHx: 00:43 Hypertension; High Cholesterol; Diabetes - NIDDM; ea - Immunization history:: Adult Immunizations up to date. - Social history:: Smoking status: unknown. Screenin:42 Abuse screen: Denies threats or abuse. Nutritional screening: No deficits noted. ea Tuberculosis screening: No symptoms or risk factors identified. Fall Risk None identified. Assessment: 00:53 General: Appears in no apparent distress. Behavior is calm, cooperative, appropriate ea for age. Pain: Denies pain. Neuro: Level of Consciousness is awake, alert, obeys commands, Oriented to person, place, time. Cardiovascular: Patient's skin is warm and dry. Respiratory: Airway is patent Respiratory effort is even, unlabored, Respiratory pattern is regular, symmetrical. Derm: Skin is pink, warm \T\ dry. 03:14 Reassessment: Patient and/or family updated on plan of care and expected duration. Pain ea level reassessed. Patient is alert, oriented x 3, equal unlabored respirations, skin warm/dry/pink. Discharge instruction given to patient verbalized the understanding of instruction. Pt left ED ambulatory tolerating well. Vital Signs: 01:57 BP 159 / 81; Pulse 80; Resp 16; Temp 97.8; Pulse Ox 98% ; ea ED Course: 00:32 Patient arrived in ED. bp1 00:43 Triage completed. ea 00:43 Patient has correct armband on for positive identification. Bed in low position. Call ea light in reach. 00:43 Arm band placed on right wrist. Patient placed in an exam room, on a stretcher, on ea pulse oximetry. 00:53 Shayna Turner, LIZETTE is Primary Nurse. ea 01:26 Shiraz Washburn MD is Attending Physician. [facility] 02:35 No provider procedures requiring assistance completed. ea 03:15 Patient did not have IV access during this emergency room visit. ea Administered Medications: No medications were administered Outcome: 03:03 Discharge ordered by . 7 03:15 Discharged to home ambulatory. ea 03:15 Condition: stable 03:15 Discharge instructions given to patient, Instructed on discharge instructions, follow up and referral plans. Demonstrated understanding of instructions, follow-up care. 03:15 Patient left the ED. ea Signatures: Shayna Turner, LIZETTE RN Jelena Lawton [facility] Shiraz Washburn MD MD 7
--- NOTE | 2020-10-25 03:04 | EDPHYS ---
Physician Documentation [facility] Name: Shirley San Age: 59 yrs Sex: Female : 1960 Arrival Date: 10/25/2020 Time: 00:32 Bed DIS2 Private MD: ED Physician Shiraz Washburn HPI: 10/25 02:56 This 59 yrs old Female presents to ER via Ambulatory with complaints of COVID mh7 Exposure. 02:56 The patient or guardian reports. mh7 02:57 Exposure to COVID. mh7 02:57 Onset: The symptoms/episode began/occurred 4 day(s) ago. Severity of symptoms: At their mh7 worst the symptoms were very mild 3 day(s) ago, in the emergency department the symptoms are unchanged. States that she was exposed to a family member that tested positive for COVID. She has had runny nose and sinus congestion.. Historical: - Allergies: 00:43 unknown antibiotic; ea - Home Meds: 00:43 Metformin Oral [Active]; Lopressor Oral [Active]; Hyzaar Oral [Active]; ea - PMHx: 00:43 Hypertension; High Cholesterol; Diabetes - NIDDM; ea - Immunization history:: Adult Immunizations up to date. - Social history:: Smoking status: unknown. ROS: 02:57 Constitutional: Negative for fever, chills, and weight loss, Eyes: Negative for injury, mh7 pain, redness, and discharge, Neck: Negative for injury, pain, and swelling, Cardiovascular: Negative for chest pain, palpitations, and edema, Respiratory: Negative for shortness of breath, cough, wheezing, and pleuritic chest pain, Abdomen/GI: Negative for abdominal pain, nausea, vomiting, diarrhea, and constipation, Back: Negative for injury and pain, : Negative for injury, bleeding, discharge, and swelling, MS/Extremity: Negative for injury and deformity, Skin: Negative for injury, rash, and discoloration, Neuro: Negative for headache, weakness, numbness, tingling, and seizure, Psych: Negative for depression, anxiety, suicide ideation, homicidal ideation, and hallucinations, Allergy/Immunology: Negative for hives, rash, and allergies, Endocrine: Negative for neck swelling, polydipsia, polyuria, polyphagia, and marked weight changes, Hematologic/Lymphatic: Negative for swollen nodes, abnormal bleeding, and unusual bruising. Exam: 02:57 Constitutional: This is a well developed, well nourished patient who is awake, alert, mh7 and in no acute distress. Head/Face: Normocephalic, atraumatic. Eyes: Pupils equal round and reactive to light, extra-ocular motions intact. Lids and lashes normal. Conjunctiva and sclera are non-icteric and not injected. Cornea within normal limits. Periorbital areas with no swelling, redness, or edema. ENT: Nares patent. No nasal discharge, no septal abnormalities noted. Tympanic membranes are normal and external auditory canals are clear. Oropharynx with no redness, swelling, or masses, exudates, or evidence of obstruction, uvula midline. Mucous membranes moist. Chest/axilla: Normal chest wall appearance and motion. Nontender with no deformity. No lesions are appreciated. Cardiovascular: Regular rate and rhythm with a normal S1 and S2. No gallops, murmurs, or rubs. Normal PMI, no JVD. No pulse deficits. Respiratory: Lungs have equal breath sounds bilaterally, clear to auscultation and percussion. No rales, rhonchi or wheezes noted. No increased work of breathing, no retractions or nasal flaring. Abdomen/GI: Soft, non-tender, with normal bowel sounds. No distension or tympany. No guarding or rebound. No evidence of tenderness throughout. Back: No spinal tenderness. No costovertebral tenderness. Full range of motion. Skin: Warm, dry with normal turgor. Normal color with no rashes, no lesions, and no evidence of cellulitis. MS/ Extremity: Pulses equal, no cyanosis. Neurovascular intact. Full, normal range of motion. Neuro: Awake and alert, GCS 15, oriented to person, place, time, and situation. Cranial nerves II-XII grossly intact. Motor strength 5/5 in all extremities. Sensory grossly intact. Cerebellar exam normal. Normal gait. Psych: Awake, alert, with orientation to person, place and time. Behavior, mood, and affect are within normal limits. Vital Signs: 01:57 BP 159 / 81; Pulse 80; Resp 16; Temp 97.8; Pulse Ox 98% ; ea MDM: 02:57 Differential Diagnosis Sinusitis, Rhinorrhea, Viral Syndrome. Data reviewed: vital [facility] signs, lab test result(s), COVID Positive. Data interpreted: Pulse oximetry: on room air is 98 %. Interpretation: normal. Counseling: I had a detailed discussion with the patient and/or guardian regarding: the historical points, exam findings, and any diagnostic results supporting the discharge/admit diagnosis, the presence of at least one elevated blood pressure reading (>120/80) during this emergency department visit, lab results, the need for outpatient follow up, to return to the emergency department if symptoms worsen or persist or if there are any questions or concerns that arise at home. Response to treatment: the patient's symptoms have markedly improved after treatment. 03:03 Patient medically screened. [facility] 10/25 01:47 Order name: SARS-COV-2 RT PCR EDMS Administered Medications: No medications were administered Disposition Summary: 10/25/20 03:03 Discharge Ordered Location: Home [facility] Problem: new [facility] Symptoms: have improved [facility] Condition: Stable [facility] Diagnosis - Coronavirus infection, unspecified [facility] Followup: [facility] - With: Private Physician - When: 1 - 2 days - Reason: Worsening of condition, Recheck today's complaints, Continuance of care, Re-evaluation by your physician Discharge Instructions: - Discharge Summary Sheet [facility] - COVID-19 [facility] Forms: - Medication Reconciliation Form [facility] - Thank You Letter [facility] - Antibiotic Education [facility] - Prescription Opioid Use [facility] Signatures: Dispatcher [employer] EDShayna Quiñones RN RN ea Holmes, Maurice, MD MD [facility] Corrections: (The following items were deleted from the chart) 00:44 00:42 CORONAVIRUS+MR.LAB.BRZ ordered. [facility]
[2020-10-25 03:21] VITALS: BP 159/81; TEMP 97.8; O2SAT 98
--- OUTSIDE RECORDS SUMMARY | 2020-10-25 15:04 | XMS REPORT | Continuity of Care Document ---
:1960 Author Organization [facility] t Address [address] [place] [address] Care Team Providers Name Role Phone COWLING Attending Clinician Unavailable Christiane RN Attending Clinician Unavailable Lab, Fam Pob I Attending Clinician Unavailable Jamal RN Attending Clinician Unavailable Payers Payer Name Policy Type Policy Number Effective Date Expiration Date Shaka LAGUNAS [place] [id number] 2016 MEDICAID STAR+[id number] 00:00:00 Problems Condition Condition Condition Status Onset Resolution Last Treating Co mments Source Name Details Category Date Date Treatment Clinician Date Mixed Mixed Problem Active [facility] hyperlipid hyperlipid Mikki kes - emia emia Memoria l [facility] Body mass Body mass Problem Active [facility] index index [facility] - (BMI) of (BMI) of Memori a 40.0-44.9 40.0-44.9 l in adult in adult Outpat i ent Clinics Essential Essential Problem Active [facility] hypertensi hypertensi Mikki kes - on on [facility]oria l [facility] Hyperglyce Hyperglyce Problem Active C HI [facility] artie artie [facility] - Memoria l [facility] Depression Depression Problem Active C HI [facility] with with [facility] - anxiety anxiety Memoria l [facility] Gastroesop Gastroesop Problem Active C HI [facility] hageal hageal Lukes - reflux reflux Memoria disease disease l without without Outpati esophagiti esophagiti en t s s Clinics Primary Primary Problem Active [facility] insomnia insomnia [facility] - Memoria l [facility] Acute pain Acute pain Problem Active C HI [facility] of right of right [facility] - hip hip Memoria l [facility] 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 Medications Ordered Filled Start Stop Current Ordering Indication Dosage Frequency Signature Comments Components Source Medication Medication Date Date Medication? Clinician (SIG) Name Name Methocarbam Methocarbam 2018- No Romy [address] ol ol -09 12- [place] [facility] - 00:00: 00:00 Memoria 00 :00 [facility] Claritin Claritin 2018- No Romy [address] 3-19 - [place] [facility] - 00:00: 00:00 Memoria 00 :00 [facility] HydrOXYzine HydrOXYzine Yes Romy [address] HCl HCl 12-16 [place] as needed [facility] - 00:00: Memoria 00 [facility] Fluticasone Fluticasone Yes Romy [address] Propionate Propionate 6-19 [place] each Mkiki kes - 00:00: nostril Memoria 00 [facility] Esomeprazol Esomeprazol Yes Romy [address] e Magnesium e Magnesium [place] [facility] - Memoria l [facility] Lopid Lopid Yes Romy TAKE ONE [facility] [place] TABLET BY Lukes - MOUTH Memoria TWICE A l DAY [facility] Aspirin Aspirin Yes Romy [address] [place] [facility] - Memoria l [facility] Trazodone Trazodone Yes Romy [address] HCl HCl [place] at bedtime [facility] - as needed Memoria [facility] Coreg Coreg Yes Romy TAKE ONE [facility] [place] TABLET BY [facility]ukes - MOUTH Memoria TWICE A l DAY [facility] Pyridium Pyridium Yes Romy [address] [place] after [facility]ukes - meals Memoria l [facility] Lipitor Lipitor Yes Romy TAKE ONE [facility] [place] TABLET BY [facility] - MOUTH Memoria EVERY l NIGHT AT [facility] BED[facility] ent Clinics Carvedilol Carvedilol Yes Romy bid [facility] [place] [facility] - Memoria l [facility] Lexapro Lexapro Yes Romy TAKE ONE [facility] [place] TABLET BY [facility]ukes - MOUTH Memoria DAILY l [facility] Metformin Metformin Yes Romy [address] HCl HCl [place] with a [facility] - meal Memoria l [facility] Esomeprazol Esomeprazol Yes Roym TAKE ONE [facility] e Magnesium e Magnesium [place] CAPSULE BY [facility]ukes - MOUTH Memoria DAILY l [facility] Victoza Victoza Yes Romy not [facility] [place] defined [facility] - Memoria l [facility] Farga No Romy [address] [facility] -15 [place] [facility] - 00:00 Memoria :00 l [facility] Immunizations Ordered Filled Immunization Date Status Comments Sour e Immunization Name Name Flucelvax Flucelvax 2018-01-[address] [facility] - 00:00:00 [facility] Procedures This patient has no known procedures. Encounters Start End Encounter Admission Attending Care Care Encounter Source Date/Time Date/Time Type Type Clinicians Facility Department ID 2020-09-07 Outpatient DORIAN [facility] [id number] [place] 14:24:41 [facility] 2020-01-21 Inpatient MHSE MELO [id number] [place] 05:17:00 [facility] 2019-11-05 2019-11-05 Telephone TANIA [place] [id number] 00:00:00 00:00:00 Kobe JOYCE [id number] [facility] [id number] 019 2019-11-01 2019-11-01 Laboratory Lab, [facility] [id number] 13:27:22 13:47:22 Only Fam [facility] [id number] [place] [id number] Professio [phone] nal [address] 2019-10-17 2019-10-17 Telephone TANIA Berry [id number] 00:00:00 00:00:00 Precious JOYCE [id number] [facility] [id number] 2019-10-15 2019-10-15 Laboratory Lab, [facility] [id number] 11:46:21 12:06:21 Only Fam Pob I [facility] [id number] [place] [id number] Professio [phone] nal [address] 2019-02-22 2019-02-22 Outpatient Allie Kelley [id number] [facility] 14:43[facility] 14[facility]43[facility]00 [facility] - DO DO [facility] Outpati ent Clinics 2018-12-09 2018-12-09 [facility] [id number] 17:30:00 17:30:00 t Urgent [facility] L [facility] Outpati ent Clinics 2018-07-07 2018-07-07 [facility] [id number] 11:30:00 11:30:00 t [facility] Medicine Outpati ent Clinics 2018-06-23 2018-06-23 [facility] [id number] 11:00:00 11:00:00 t [facility] Medicine l Medicine Outpati ent Clinics 2018-01-22 2018-01-22 [facility] [id number] 09:00:00 09:00:00 [facility] Medicine Outpati ent Clinics 2017-12-29 2017-12-29 [facility] [id number] 15:51:00 15:51:00 t [facility] Medicine Outpati ent Clinics 2017-12-16 2017-12-16 [facility] [id number] 09:15:00 09:15:00 t [facility] Medicine Outpati ent Clinics 2017-10-15 2017-10-15 [facility] [id number] 16:15:00 16:15:00 t Urgent Urgent Care L [facility] 2017-10-13 2017-10-13 Outpatient Ilda Malik [id number] 14:45:00 14:45:00 t [facility] 2017-10-07 2017-10-07 Outpatient Ilda Malik [id number] 13:00:00 13:00:00 [facility] ent Clinics Results This patient has no known results.
== END 2020-10-25 03:15 | disposition home or self-care (01) ==
LOC: ER 23:55
DX: U07.1 COVID-19 (principal); I10 Essential (primary) hypertension; E11.9 Type 2 diabetes mellitus without complications
CPT/HCPCS: 99283; U0003

== ENCOUNTER 2022-06-25 18:30 | Emergency (ER) | payer OTHER ==
--- OUTSIDE RECORDS SUMMARY | 2022-06-25 18:42 | XMS REPORT | Continuity of Care Document ---
:1960 Author Organization [facility] t Address [address] [place] [address] Care Team Providers Name Role Phone Luke Jamison Attending Clinician Unavailable Ambrose Atkins Attending Clinician Unavailable TANIA ALARCON Attending Clinician Unavailable RADIOLOGY Attending Clinician Unavailable TANIA ALARCON Attending Clinician Unavailable Kobe [place] RN Attending Clinician Unavailable Lab, Adc Fam Pob I Attending Clinician Unavailable Unknown, Attending Attending Clinician Unavailable UNKNOWN, ATTENDING Attending Clinician Unavailable Precious Berry RN Attending Clinician Unavailable Vidya Lee Attending Clinician VIDYA JOHNSON Attending Clinician Unavailable TANIA ALARCON Admitting Clinician Unavailable Payers Payer Name Policy Type Policy Number Effective Date Expiration Date Shaka fox [facility] [id number] 2016 MEDICAID STAR+PLUS 00:00:00 ELLIE FRANCIS [facility] [id number] 2019 00:00:00 [facility] [id number] 2016 MEDICAID 00:00:00 Problems Condition Condition Condition Status Onset Resolution Last Treating Co mments Source Name Details Category Date Date Treatment Clinician Date [id number] Mixed Problem Active Common hyperlipid Spirit emia [facility] [id number] Depression Problem Active Com mon with Spirit anxiety [facility] [id number] Hyperglyce Problem Active Com mon artie [facility] [id number] Seasonal Problem Active Comm on allergic Spirit rhinitis, - CHI unspecifie d [facility] [id number] Primary Problem Active Common insomnia Spirit [facility] [id number] Muscle Problem Active Common strain 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 40.0-44.9 St in [facility] [id number] Primary Problem Active Comm on osteoarthr Spirit itis of CHI right knee [facility] [id number] Primary Problem Active Comm on osteoarthr Spirit itis of CHI left knee [facility] Allergies, Adverse Reactions, Alerts Allergy Allergy Status Severity Reaction(s) Onset Inactive Treating Comm ents Source Name Type Date Date Clinician NO KNOWN Drug Active Univers ALLERGIE Class ity [facility] Social History Social Habit Start Date Stop Date Quantity Comments Source Exposure to SARS-CoV-2 Yes Un [facility] History of Tobacco Use Co mmon [facility] Sex Assigned At Com mon [facility] Smoking Status Start Date Stop Date Source Unknown if ever smoked [facility] [place] Former Smoker 2021-11-15 00:00:00 2021-11-15 00:00:00 Common S pirit [facility] nter Medications Ordered Filled Start Stop Current Ordering Indication Dosage Frequency Signature Comments Components Source Medication Medication Date Date Medication? Clinician (SIG) Name Name Ketorolac Ketorolac No 60mg Com mon 15mg 15mg 8- Spirit 00:00: - CHI [facility] Ketorolac Ketorolac No 60mg Com mon 15mg 15mg 12-09 Spirit 00:00: - CHI 00 [facility] Methocarbam Methocarbam 2019- No Romy 1 tablet Common ol ol 12-09 [place] Spirit 00:00: 00:00 - CHI 00 :00 [facility] Claritin Claritin 0 2019- No Romy 1 tablet Common 07-07 [place] Spirit 00:00: 00:00 - CHI 00 :00 [facility] HydrOXYzine HydrOXYzine Yes Romy 1 tablet Common HCl HCl 12-16 [place] as needed Spirit 00:00: - CHI 00 [facility] hydrOXYzine hydrOXYzine No 1{table QID hydrOXYzin HCl 50 MG HCl 50 MG 12-16 t_as_ne e HCl 50 00:00: eded} MG 00 hydrOXYzine hydrOXYzine No 1{table QID hydrOXYzin HCl 50 MG HCl 50 MG 12-16 t_as_ne e HCl 50 00:00: eded} MG 00 Toradol Toradol No 60mg Common (Ketorolac) (Ketorolac) 6-27 S pirit 00:00: - CHI 00 [facility] Toradol Toradol No 60mg Common (Ketorolac) (Ketorolac) 6-27 S pirit 00:00: - CHI 00 [facility] Fluticasone Fluticasone Yes Romy 1 spray in Common Propionate Propionate 10-07 [place] each Sp radha 00:00: nostril - CHI 00 [facility] Esomeprazol Esomeprazol Yes Romy 1 tablet Common e Magnesium e Magnesium [place] Spirit - CHI [facility] Lopid Lopid Yes Romy TAKE ONE Common [place] TABLET BY Spirit MOUTH - CHI TWICE [facility] Aspirin Aspirin Yes Romy 1 tablet Com mon [place] Spirit - CHI [facility] Trazodone Trazodone Yes Romy 1 tablet Common HCl HCl [place] at bedtime Spirit as needed - CHI [facility] Coreg Coreg Yes Romy TAKE ONE Common [place] TABLET BY Spirit MOUTH - CHI TWICE A [facility] Pyridium Pyridium Yes Romy 1 tablet C ommon [place] after Spirit meals - CHI [facility] Lipitor Lipitor Yes Romy TAKE ONE Com mon [place] TABLET BY Spirit MOUTH - CHI EVERY St NIGHT AT [facility] BEDTIME [facility] Carvedilol Carvedilol Yes Romy bid C ommon [place] Spirit - CHI [facility] Lexapro Lexapro Yes Romy TAKE ONE Com mon [place] TABLET BY Spirit MOUTH - CHI DAILY [facility] Metformin Metformin Yes Romy 1 tablet Common HCl HCl [place] with a Spirit meal - CHI [facility] Esomeprazol Esomeprazol Yes Romy TAKE ONE Common e Magnesium e Magnesium [place] CAPSULE BY Spirit MOUTH - CHI DAILY [facility] Victoza Victoza Yes Romy not Common [place] defined Spirit - CHI [facility] Lexapro 20 Lexapro 20 No Lexapro 20 MG MG MG Coreg 12.5 Coreg 12.5 No Coreg 12.5 MG MG MG Esomeprazol Esomeprazol No 1{table QD Esomeprazo e Magnesium e Magnesium t} le 20 MG 20 MG Magnesium 20 MG Esomeprazol Esomeprazol No Esomeprazo e Magnesium e Magnesium le 20 MG 20 MG Magnesium 20 MG Victoza Victoza No Victoza Lipitor 20 Lipitor 20 No Lipitor 20 MG MG MG Pyridium Pyridium No 1{table TID Pyridium 200 MG 200 MG t_after 200 MG _meals} Lopid 600 Lopid 600 No Lopid 600 MG MG MG metFORMIN metFORMIN No 1{table metFORMIN HCl 850 MG HCl 850 MG t_with_ HCl 850 MG a_meal} traZODone traZODone No 1{table QD traZODone HCl 50 MG HCl 50 MG t_at_be HCl 50 MG dtime_a s_neede d} Fluticasone Fluticasone No 1{spray QD Fluticason Propionate Propionate _in_eac e 50 MCG/ACT 50 MCG/ACT h_nostr Propionate il} 50 MCG/ACT NexIUM 40 NexIUM 40 No NexIUM 40 MG MG MG Aspirin 81 Aspirin 81 No 1{table QD Aspirin 81 MG MG t} MG Carvedilol Carvedilol No BID Carvedilol 25 MG 25 MG 25 MG Carvedilol Carvedilol No BID Carvedilol 25 MG 25 MG 25 MG Lexapro 20 Lexapro 20 No Lexapro 20 MG MG MG Lipitor 20 Lipitor 20 No Lipitor 20 MG MG MG Coreg 12.5 Coreg 12.5 No Coreg 12.5 MG MG MG metFORMIN metFORMIN No 1{table metFORMIN HCl 850 MG HCl 850 MG t_with_ HCl 850 MG a_meal} Esomeprazol Esomeprazol No 1{table QD Esomeprazo e Magnesium e Magnesium t} le 20 MG 20 MG Magnesium 20 MG Paxil Paxil No Paxil Fluticasone Fluticasone No 1{spray QD Fluticason Propionate Propionate _in_eac e 50 MCG/ACT 50 MCG/ACT h_nostr Propionate il} 50 MCG/ACT Victoza Victoza No Victoza Lopid 600 Lopid 600 No Lopid 600 MG MG MG Esomeprazol Esomeprazol No Esomeprazo e Magnesium e Magnesium le 20 MG 20 MG Magnesium 20 MG traZODone traZODone No 1{table QD traZODone HCl 50 MG HCl 50 MG t_at_be HCl 50 MG dtime_a s_neede d} NexIUM 40 NexIUM 40 No NexIUM 40 MG MG MG Aspirin 81 Aspirin 81 No 1{table QD Aspirin 81 MG MG t} MG Pyridium Pyridium No 1{table TID Pyridium 200 MG 200 MG t_after 200 MG _meals} Farxiga Farga 2019- No Romy 1 Common 01-03 [place] Spirit 00:00 - CHI :00 [facility] Immunizations Ordered Immunization Filled Immunization Date Status Commen ts Source Name Name Flucelvax - single Flucelvax - single 2018-01-22 Completed Common Spirit dose syringe dose syringe 10:06:00 - [facility] Flucelvax - single Flucelvax - single 2018-01-22 Completed Common Spirit dose syringe dose syringe 10:06:00 - [facility] Flucelvax Flucelvax 2018-01-22 Completed Common Spirit 00:00:00 - [facility] Vital Signs Vital Name Observation Time Observation Value Comments Source height 2021-11-15 13:30:00 59 [in_i] Common [facility] weight 2021-11-15 13:30:00 166 [lb_av] Common [facility] bmi 2021-11-15 13:30:00 33.52 kg/m2 Common [facility] blood pressure 2021-11-15 13:30:00 130 mm[Hg] Common [facility] - systolic [facility] blood pressure 2021-11-15 13:30:00 82 mm[Hg] Common [facility] - diastolic [facility] Procedures This patient has no known procedures. Encounters Start End Encounter Admission Attending Care Care Encounter Source Date/Time Date/Time Type Type Clinicians Facility Department ID 2021-11-23 Outpatient Jamison, STLMLC STLMLC [id number] Common 15:42:[address] [facility] 2021-11-16 Outpatient Jamison, STLMLC STLMLC [id number] Common 09:32:[address] [facility] 2021-11-15 Outpatient Jamison, STLMLC STLMLC [id number] Common 13:19:[address] [facility] 2021-11-08 Outpatient zzzGowda, STLMLC STLMLC [id number] Common 08:46:[address] [facility] 2021-10-10 Outpatient zzzGowda, STLMLC STLMLC [id number] Common 16:31:[address] [facility] 2021-09-13 Outpatient zzzGowda, STLMLC STLMLC [id number] Common 09:44:[address] [facility] 2020-09-07 Outpatient [facility] [id number] [place] 14:24:41 [facility] 2021-11-15 2021-11-15 OFFICE STLMLC STLMLC [id number] Co mmon 00:00:00 00:00:00 VISIT [facility] PT LEVEL 4 [facility] 2021-09-13 2021-09-13 (TEL) STLMLC STLMLC [id number] Co mmon 00:00:00 00:00:00 Spirit - CHI [facility] 2020-05-11 2020-05-11 Outpatient R RADIOLOGY [facility] [id number] Univers 00:00:00 00:00:[address] [facility] 2020-01-21 2020-01-23 Inpatient YEIMI ALARCONSE MELO [id number] MH 05:17:00 11:30:00 TANIA metcalf [facility] 2019-11-05 2019-11-05 Telephone TANIA [place] [id number] [facility] 00:00:00 00:00:00 Aneatrice MARIA DEL CARMEN [id number] ity [facility] [id number] Lionel as [phone] [address] 2019-11-05 2019-11-05 Telephone TANIA [place] [id number] 00:00:00 00:00:00 Aneatrice MARIA DEL CARMEN [id number] [place] [id number] [facility] 2019-11-01 2019-11-01 Laboratory Lab, [facility] Fam Pob I [facility] [id number] Univers 13:27:22 13:47:22 Only Unknown, Attending Health [id number] ity [facility] [id number] Lionel as Professio [phone] Vt dical [address] 2019-11-01 2019-11-01 Laboratory Lab, [facility] [id number] 13:27:22 13:47:22 Only Fam Pob I Health [id number] [place] [id number] Professio [phone] [place] [address] [address] 2019-11-01 2019-11-01 Outpatient R UNKNOWN, [facility] [id number] Univers 13:20:00 13:20:[address] [facility] 2019-10-17 2019-10-17 Telephone TANIA Berry [id number] Univers 00:00:00 00:00:00 Precious MARIA DEL CARMEN [id number] it y [facility] [id number] Lionel as [phone] [facility] 019 [place] 2019-10-17 2019-10-17 Telephone TANIA Berry [id number] 00:00:00 00:00:00 Precious JOYCE [id number] [facility] [id number] 019 2019-10-15 2019-10-15 Laboratory Lab, [facility] Pob I [facility] [id number]. [id number] [facility] [address] [facility] 11:46:21 12:06:21 Only Vidya [place] [id number] ity of [place] [id number] Lionel as Professio [phone] Vt dical [address] 2019-10-15 2019-10-15 Laboratory Lab, [facility] [id number] 11:46:21 12:06:21 Only Fam Delia [facility] [id number] [place] [id number] Professio [phone] nal [facility] Office Building One 2019-10-15 2019-10-15 Outpatient Jessica JOHNSON [facility] [id number] Univers 11:40:00 11:40:[address] [facility] 2019-02-22 2019-02-22 Outpatient Allie Kelley [id number] Common 14:43:00 14:43:00 Nate Sullivan Sp rahda DO DO [facility] 2018-12-09 2018-12-09 [facility] [id number] Common 17:30:00 17:30:00 t Urgent Urgent Care S pirit Care [facility] 2018-07-07 2018-07-07 Outpatient [facility] [id number] Common 11:30:00 11:30:00 t [facility] it [facility] 2018-06-23 2018-06-23 Outpatient [facility] [id number] Common 11:00:00 11:00:00 t [facility] it [facility] 2018-01-22 2018-01-22 Outpatient [facility] [id number] Common 09:00:00 09:00:[address] [facility] [address] Road [facility] 2017-12-29 2017-12-29 Outpatient [facility] [id number] Common 15:51:00 15:51:[address] [facility] [address] Sp[address] Road [facility] 2017-12-16 2017-12-16 Outpatient [facility] [id number] Common 09:15:00 09:15:[address] [facility] [address] Sp[address] Road [facility] 2017-10-15 2017-10-15 Outpatient [facility] [id number] Common 16:15:00 16:15:00 t Urgent Urgent Care S [facility] 2017-10-13 2017-10-13 Outpatient [facility] [id number] Common 14:45:00 14:45:[address] [facility] [address] [facility] 2017-10-07 2017-10-07 Outpatient [facility] [id number] Common 13:00:00 13:00:[address] [facility] [address] Sp[address] Road [facility] Results This patient has no known results.
[2022-06-25] MEDS ORDERED: DOXYCYCLINE 100 MG CAP PO ONE (20:24)
[2022-06-25] MEDS ORDERED: AMOX/K CLAV 875 MG TAB ONE (20:24)
[2022-06-25] MEDS ORDERED: TDAP (DIPHTH,PERTUSS(ACELL),TET VAC) 0.5 ML VIAL IMVAC ONE (20:24)
[2022-06-25] MEDS ORDERED: HYDROCODONE/APAP 7.5/325 MG TAB ONE (20:24)
--- NOTE | 2022-07-12 14:12 | EDPHYS ---
Physician Documentation [facility] Name: Shirley San Age: 61 yrs Sex: Female : 1960 Arrival Date: 06/25/2022 Time: 18:39 Bed DIS2 Private MD: ED Physician Miguel Brady HPI: 06/25 19:58 This 61 yrs old Female presents to ER via Ambulatory with complaints of Cat kb Bite - scratches, Arm Injury. 19:58 The patient was bitten on the right forearm and right hand, by a cat, at home. Onset: kb The symptoms/episode began/occurred just prior to arrival. Animal information: The animal was reported to appear healthy. Animal's vaccinations are not up to date. Secondary to the bite the patient reports an abrasion, pain, a puncture wound. Associated signs and symptoms: Pertinent positives: pain at site, swelling at site. Severity of symptoms: At their worst the symptoms were moderate, in the emergency department the symptoms are unchanged. The patient has not experienced similar symptoms in the past. The patient has not recently seen a physician. Historical: - Allergies: 18:52 unknown antibiotic; ld1 - PMHx: 18:52 Diabetes - NIDDM; High Cholesterol; Hypertension; ld1 - Immunization history:: Adult Immunizations up to date, Client reports receiving the 2nd dose of the Covid vaccine. - Social history:: Smoking status: Patient denies any tobacco usage or history of. Patient/guardian denies using alcohol. ROS: 19:57 Constitutional: Negative for fever, chills, and weight loss. kb 19:57 Skin: Positive for abrasion(s), of the right hand and right forearm. 19:57 All other systems are negative. Exam: 19:57 Constitutional: This is a well developed, well nourished patient who is awake, alert, kb and in no acute distress. Head/Face: Normocephalic, atraumatic. ENT: Moist Mucous membranes Cardiovascular: Regular rate and rhythm with a normal S1 and S2. No gallops, murmurs, or rubs. No pulse deficits. Respiratory: Respirations even and unlabored. No increased work of breathing. Talking in full sentences MS/ Extremity: Pulses equal, no cyanosis. Neurovascular intact. Full, normal range of motion. Neuro: Awake and alert, GCS 15, oriented to person, place, time, and situation. Moves all extremities. Normal gait. 19:57 Skin: injury, abrasion(s), small abrasion noted, moderate sized abrasion noted, of the right forearm and right hand. Vital Signs: 18:51 BP 144 / 97; Pulse 95; Resp 18; Temp 97.6(TE); Pulse Ox 98% on R/A; Weight 73.48 kg; ld1 Height 4 ft. 11 in. ; Pain 8/10; 18:51 Body Mass Index 32.72 (73.48 kg, 149.86 cm) ld1 18:51 Pain Scale: Adult ld1 MDM: 18:54 Patient medically screened. kb 19:57 Differential diagnosis: superficial laceration. Data reviewed: vital signs, nurses kb notes. Counseling: I had a detailed discussion with the patient and/or guardian regarding: the historical points, exam findings, and any diagnostic results supporting the discharge/admit diagnosis, the need for outpatient follow up, a family practitioner, to return to the emergency department if symptoms worsen or persist or if there are any questions or concerns that arise at home. 19:59 ED course: Patient is a 61-year-old female who presents for abrasions and pain to right kb hand and forearm after her cat scratched and bit her. On exam patient has multiple abrasions to right hand and forearm, 1 puncture wound with ecchymosis and swelling. Educated on need for antibiotics to prevent infection and to keep wounds clean. Verbal understanding received.. 06/25 18:54 Order name: Wound Care; Complete Time: 20:38 kb Administered Medications: 20:38 Drug: Hydrocodone-Acetaminophen PO (7.5 mg-325 mg) 1 tabs Route: PO; mb9 20:39 Follow up: Response: No adverse reaction mb9 20:38 Drug: Doxycycline PO 100 mg Route: PO; mb9 20:39 Follow up: Response: No adverse reaction mb9 20:38 Drug: Amoxicillin-Clavulanate PO 875 mg Route: PO; mb9 20:39 Follow up: Response: No adverse reaction mb9 20:38 Drug: Boostrix Tdap 0.5 ml Route: IM; Site: left deltoid; mb9 20:38 Follow up: [facility]. Expiration; 03/08/23. LOT [id number] mb9 Disposition: 06/26 13:38 Co-signature as Attending Physician, Miguel Brady DO I was immediately available on-site ms3 in the Emergency Department for consultation in the care of the patient. Disposition Summary: 06/25/22 20:03 Discharge Ordered Location: Home kb Condition: Stable kb Diagnosis - Bitten by cat kb - Puncture wound without foreign body of forearm kb - Abrasion of right hand kb - Abrasion of right forearm kb Followup: kb - With: Emergency Department - When: As needed - Reason: Worsening of condition Followup: kb - With: Private Physician - When: 2 - 3 days - Reason: Recheck today's complaints, Continuance of care, Re-evaluation by your physician Discharge Instructions: - Discharge Summary Sheet kb - Animal Bite, Adult, [id number]-[id number] kb - Abrasion, [id number]-[id number] kb - Puncture Wound, Brny-pe-Wclo kb Forms: - Medication Reconciliation Form kb - Thank You Letter kb - Antibiotic Education kb - Prescription Opioid Use kb Prescriptions: - Augmentin 875-125 mg Oral Tablet - take 1 tablet by ORAL route every 12 hours for 10 days; 20 tablet; Refills: 0, kb Product Selection Permitted - Doxycycline Hyclate 100 mg Oral Tablet - take 1 tablet by ORAL route every 12 hours; 20 tablet; Refills: 0, Product kb Selection Permitted - Diclofenac Sodium 75 mg Oral tablet,delayed release (DR/EC) - take 1 tablet by ORAL route 2 times per day As needed; 30 tablet; Refills: 0, kb Product Selection Permitted Signatures: Navya Parks, KATIANA WILDE-Miguel Hou DO DO ms3 Junie Marin, RN RN ld1 Chiquis Farley RN RN mb9
--- NOTE | 2022-07-12 14:12 | ER ---
Nurse's Notes [facility] Name: Shirley San Age: 61 yrs Sex: Female : 1960 Arrival Date: 06/25/2022 Time: 18:39 Bed DIS2 Private MD: Diagnosis: Bitten by cat;Puncture wound without foreign body of forearm;Abrasion of right hand;Abrasion of right forearm Presentation: 06/25 18:51 Chief complaint: Patient states: My cat scratched me and bit my right arm. Coronavirus ld1 screen: At this time, the client does not indicate any symptoms associated with coronavirus-19. Ebola Screen: No symptoms or risks identified at this time. Initial Sepsis Screen: Does the patient meet any 2 criteria? No. Patient's initial sepsis screen is negative. Does the patient have a suspected source of infection? No. Patient's initial sepsis screen is negative. Risk Assessment: Do you want to hurt yourself or someone else? Patient reports no desire to harm self or others. Onset of symptoms was June 25, 2022. 18:51 Method Of Arrival: Ambulatory ld1 18:51 Acuity: SAÚL 4 ld1 Triage Assessment: 18:52 Bite description: bite sustained to right hand and right arm by a cat, animal ld1 information: vaccination(s) is unknown. General: Appears in no apparent distress. comfortable, Behavior is calm, cooperative, appropriate for age. Pain: Complains of pain in right arm Pain does not radiate. Pain currently is 8 out of 10 on a pain scale. Quality of pain is described as throbbing, Pain began 1 hour ago. EENT: No signs and/or symptoms were reported regarding the EENT system. Neuro: Level of Consciousness is awake, alert, obeys commands, Oriented to person, place, time, situation. Cardiovascular: Capillary refill < 3 seconds Patient's skin is warm and dry. Respiratory: Airway is patent Respiratory effort is even, unlabored. GI: Abdomen is round non-distended. : No signs and/or symptoms were reported regarding the genitourinary system. Derm: No signs and/or symptoms reported regarding the dermatologic system. Musculoskeletal: No signs and/or symptoms reported regarding the musculoskeletal system. Injury Description: Bite sustained to right arm. Historical: - Allergies: 18:52 unknown antibiotic; ld1 - PMHx: 18:52 Diabetes - NIDDM; High Cholesterol; Hypertension; ld1 - Immunization history:: Adult Immunizations up to date, Client reports receiving the 2nd dose of the Covid vaccine. - Social history:: Smoking status: Patient denies any tobacco usage or history of. Patient/guardian denies using alcohol. Assessment: 20:44 General: Appears uncomfortable, Behavior is anxious. Respiratory: Airway is patent mb9 Respiratory effort is even, unlabored, Respiratory pattern is regular, symmetrical. Derm: scratches noted to pts bilateral right arm, hand, and elbow. No active bleeding noted. Musculoskeletal: Range of motion: intact in all extremities. Vital Signs: 18:51 BP 144 / 97; Pulse 95; Resp 18; Temp 97.6(TE); Pulse Ox 98% on R/A; Weight 73.48 kg; ld1 Height 4 ft. 11 in. ; Pain 8/10; 18:51 Body Mass Index 32.72 (73.48 kg, 149.86 cm) ld1 18:51 Pain Scale: Adult ld1 ED Course: 18:39 Patient arrived in ED. am2 18:48 Navya Parks FNP-C is PHCP. kb 18:48 Miguel Brady DO is Attending Physician. kb 18:52 Triage completed. ld1 18:52 Arm band placed on right wrist. ld1 20:45 Patient did not have IV access during this emergency room visit. mb9 Administered Medications: 20:38 Drug: Hydrocodone-Acetaminophen PO (7.5 mg-325 mg) 1 tabs Route: PO; mb9 20:39 Follow up: Response: No adverse reaction mb9 20:38 Drug: Doxycycline PO 100 mg Route: PO; mb9 20:39 Follow up: Response: No adverse reaction mb9 20:38 Drug: Amoxicillin-Clavulanate PO 875 mg Route: PO; mb9 20:39 Follow up: Response: No adverse reaction mb9 20:38 Drug: Boostrix Tdap 0.5 ml Route: IM; Site: left deltoid; mb9 20:38 Follow up: [facility]. Expiration; 03/08/23. LOT [id number] mb9 Intake: Outcome: 20:03 Discharge ordered by . kb 20:45 Discharged to home ambulatory. mb9 20:45 Condition: stable 20:45 Discharge instructions given to patient, Instructed on discharge instructions, follow up and referral plans. Demonstrated understanding of instructions, follow-up care, medications, Prescriptions given X 3. 20:46 Patient left the ED. mb9 Signatures: Navya Parks, NIGHT CLEANER-C NIGHT CLEANER-CkSneha Mcrae Lauren RN RN ld1 Chiquis Farley RN RN mb9
== END 2022-06-25 20:46 | disposition home or self-care (01) ==
LOC: ER 18:30
DX: S51.831A Puncture wound without foreign body of right forearm, initial encounter (principal); S60.511A Abrasion of right hand, initial encounter; S50.811A Abrasion of right forearm, initial encounter; W55.01XA Bitten by cat, initial encounter; I10 Essential (primary) hypertension
CPT/HCPCS: 96372; 99283

== ENCOUNTER 2022-11-16 12:22 | Emergency (ER) | payer OTHER ==
--- OUTSIDE RECORDS SUMMARY | 2022-11-16 12:30 | XMS REPORT | Continuity of Care Document ---
:1960 Author Organization [facility] t Address [address] [place] [address] Care Team Providers Name Role Phone Luke [...] Number Effective Date Expiration Date Shaka fox [facility] [id number] 2016 MEDICAID STAR+PLUS 00:00:00 ELLIE FRANCIS [facility] [id number] 2019 00:00:00 [facility] [id number] 2016 MEDICAID 00:00:00 Problems Condition Condition Condition Status Onset Resolution Last Treating Co mments Source Name Details Category Date Date Treatment Clinician Date [id number] Mixed Problem Active Common hyperlipid Spirit em[facility] [id number] Depression Problem Active Com mon with Spirit anxiety [facility] [id number] Hyperglyce Problem Active Com mon artie [facility] [id number] Seasonal Problem Active Comm on allergic Spirit rhinitis, - [facility] unspecifie d [facility] [id number] Primary Problem Active Common insomnia [facility] [id number] Muscle Problem Active Common strain [facility] [id number] Gastroesop Problem Active Co mmon hageal Spirit reflux - [facility] disease [facility] esophagiti [facility] [place] [id number] Essential Problem Active Comm on hypertensi Spirit on [facility] [id number] Acute pain Problem Active Com mon of right Spirit hip [facility] [id number] 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., 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 [facility] [id number] Body mass Problem Active Com mon index Spirit (BMI) of - [facility] 40.0-44.9 St in [facility] [id number] Primary Problem Active Comm on osteoarthr Spirit itis of [facility] right knee [facility] [id number] Primary Problem Active Comm on osteoarthr Spirit itis of [facility] left knee [facility] Allergies, Adverse Reactions, Alerts Allergy Allergy Status Severity Reaction(s) Onset Inactive Treating Comm ents Source Name Type Date Date Clinician NO KNOWN Drug Active [facility] Social History Social Habit Start Date Stop Date Quantity Comments Source History of Tobacco Use Co mmon [facility] Sex Assigned At Com mon [facility] Exposure to SARS-CoV-2 [facility] Smoking Status Start Date Stop Date Source Unknown if ever smoked [facility] Former Smoker 2021-11-15 00:00:00 2021-11-15 00:00:00 Common S pirit [facility] nter Medications Ordered Filled Start Stop Current Ordering Indication Dosage Frequency Signature Comments Components Source Medication Medication Date Date Medication? Clinician (SIG) Name Name Ketorolac Ketorolac No 60mg Com mon 15mg 15mg - Spirit 00:00: - [facility] Ketorolac Ketorolac No 60mg Com mon 15mg 15mg 12-09 Spirit 00:00: - [facility] 00 [facility] Methocarbam Methocarbam 2019- No Romy 1 tablet Common ol ol 12-09 [place] Spirit 00:00: 00:00 - [facility]I 00 :00 [facility] Claritin Claritin 0 2019- No Romy 1 tablet Common 07-07 [place] Spirit 00:00: 00:00 - [facility]I 00 :00 [facility] HydrOXYzine HydrOXYzine Yes Romy 1 tablet Common HCl HCl 12-16 [place] as needed Spirit 00:00: - [facility] 00 [facility] hydrOXYzine hydrOXYzine No 1{table QID hydrOXYzin HCl 50 MG HCl 50 MG 12-16 t_as_ne e HCl 50 00:00: eded} MG 00 hydrOXYzine hydrOXYzine No 1{table QID hydrOXYzin HCl 50 MG HCl 50 MG 12-16 t_as_ne e HCl 50 00:00: eded} MG 00 Toradol Toradol No 60mg Common (Ketorolac) (Ketorolac) 6-27 S pirit 00:00: - CHI 00 [facility] Toradol Toradol No 60mg Common (Ketorolac) (Ketorolac) 6-27 S pirit 00:00: - CHI 00 [facility] Fluticasone Fluticasone Yes Romy 1 spray in Common Propionate Propionate 10-07 [place] each Sp radah 00:00: nostril - CHI 00 [facility] Esomeprazol Esomeprazol Yes Romy 1 tablet Common e Magnesium e Magnesium [place] Spirit - [facility] Lopid Lopid Yes Romy TAKE ONE Common [place] TABLET BY Spirit MOUTH - CHI TWICE A [facility] Aspirin Aspirin Yes Romy 1 tablet Com mon [place] Spirit - [facility] Trazodone Trazodone Yes Romy 1 tablet Common HCl HCl [place] at bedtime Spirit as needed - [facility] Coreg Coreg Yes Romy TAKE ONE Common [place] TABLET BY Spirit MOUTH - CHI TWICE A [facility] Pyridium Pyridium Yes Romy 1 tablet C ommon [place] after Spirit meals - [facility] Lipitor Lipitor Yes Romy TAKE ONE Com mon [place] TABLET BY Spirit MOUTH - CHI EVERY [facility] NIGHT AT [facility] BEDTIME [facility] Carvedilol Carvedilol Yes Romy bid C ommon [place] Spirit - [facility] Lexapro Lexapro Yes Romy TAKE ONE Com mon [place] TABLET BY Spirit MOUTH - CHI DAILY [facility] Metformin Metformin Yes Romy 1 tablet Common HCl HCl [place] with a Spirit meal - [facility] Esomeprazol Esomeprazol Yes Romy TAKE ONE Common e Magnesium e Magnesium [place] CAPSULE BY Spirit MOUTH - CH[facility] DAILY [facility] Victoza Victoza Yes Romy not Common [place] defined Spirit - [facility] Lexapro 20 Lexapro 20 No Lexapro 20 [...] 01-03 [place] Spirit 00:00 - [facility] :00 [facility] Immunizations Ordered Immunization Filled Immunization Date Status Commen ts Source Name Name Flucelvax - single Flucelvax - single 2018-01-22 Completed Common Spirit dose syringe dose syringe 10:06:00 - [facility] Flucelvax - single Flucelvax - single 2018-01-22 Completed Common Spirit dose syringe dose syringe 10:06:00 - [facility] Flucelvax Flucelvax 2018-01-22 Completed Common Spirit 00:00:00 - [facility] Vital Signs Vital Name Observation Time Observation Value Comments Source height 2021-11-15 13:30:00 59 [in_i] Common [facility] weight 2021-11-15 13:30:00 166 [lb_av] Common [facility] bmi 2021-11-15 13:30:00 33.52 kg/m2 Common [facility] blood pressure 2021-11-15 13:30:00 130 mm[Hg] Common [facility] - systolic [facility] blood pressure 2021-11-15 13:30:00 82 mm[Hg] Common [facility] - diastolic [facility] Procedures This patient has no known procedures. Encounters Start End Encounter Admission Attending Care Care Encounter Source Date/Time Date/Time Type Type Clinicians Facility Department ID 2021-11-23 Outpatient Jamison, STLMLC STLMLC [id number] Common 15:42:01 Luke [facility] 2021-11-16 Outpatient Jamison, STLMLC STLMLC [id number] Common 09:32:00 Luke [facility] 2021-11-15 Outpatient Jamison, STLMLC STLMLC [id number] Common 13:19:01 Luke [facility] 2021-11-08 Outpatient zzzGowda, STLMLC STLMLC [id number] Common 08:46:00 Ambrose [facility] 2021-10-10 Outpatient zzzGowda, STLMLC STLMLC [id number] Common 16:31:00 Ambrose [facility] 2021-09-13 Outpatient zzzGowda, STLMLC STLMLC [id number] Common 09:44:00 Ambrose [facility] 2020-09-07 Outpatient [facility] [id number] SD 14:24:41 [facility] 2021-11-15 2021-11-15 OFFICE STLMLC STLMLC [id number] Co mmon 00:00:00 00:00:[address] [facility] PT LEVEL 4 [facility] 2021-09-13 2021-09-13 (TEL) STLMLC STLMLC [id number] Co mmon 00:00:00 00:00:00 Spirit - [facility] 2020-05-11 2020-05-11 Outpatient R RADIOLOGY [facility] [id number] Univers 00:00:00 00:00:00 ity of [facility] 2020-01-21 2020-01-23 Inpatient YEIMI ALARCONSE MELO [id number] 05:17:00 11:30:00 TANIA metcalf [facility] 2019-11-05 2019-11-05 Telephone TANIA [place] [id number] 00:00:00 00:00:00 Aneatrice MARIA DEL CARMEN [id number] [facility] [id number] 2019-11-05 2019-11-05 Telephone TANIA [place] [id number] [facility] 00:00:00 00:00:00 Aneatrice MARIA DEL CARMEN [id number] ity [facility] [id number] Lionel as [phone] [address] 2019-11-01 2019-11-01 Laboratory Lab, [facility] [id number] 13:27:22 13:47:22 Only Fam Pob I Health [id number] [place] [id number] Professio [phone] [place] [address] Office Building [facility] 2019-11-01 2019-11-01 Laboratory Lab, [facility] Fam Pob I [facility] [id number] Univers 13:27:22 13:47:22 Only Unknown, Attending [id number] [facility] [id number] Lionel as Professio [phone] Nd dical [address] Office Building One 2019-11-01 2019-11-01 Outpatient R UNKNOWN, [facility] [id number] Univers 13:20:00 13:20:00 ATTENDING ity [facility] 2019-10-17 2019-10-17 Telephone TANIA Berry [id number] 00:00:00 00:00:00 Precious MARIA DEL CARMEN [id number] [facility] [id number] 2019-10-17 2019-10-17 Telephone TANIA Berry [id number] Univers 00:00:00 00:00:00 Precious JOYCE [id number] it y of [facility] [id number] Lionel as [phone] [address] 2019-10-15 2019-10-15 Laboratory Lab, [facility] [id number] 11:46:21 12:06:21 Only Fam Pob I Health [id number] [place] [id number] Professio [phone] nal [facility] Office Building One 2019-10-15 2019-10-15 Laboratory Lab, [facility] Fam Pob I [facility] [id number] [facility] 11:46:21 12:06:21 Only Vidya Johnson [id number] ity [facility] [id number] Lionel as Professio [phone] Nd dical [address] Office [address] One 2019-10-15 2019-10-15 Outpatient Jessica JOHNSON, [facility] [id number] Univers 11:40:00 11:40:00 VIDYA rincon [facility] 2019-02-22 2019-02-22 Outpatient Allie Kelley [id number] Common 14:43:00 14:43:00 Nate Sullivan Sp radha DO DO [facility] 2018-12-09 2018-12-09 Out[facility] [id number] Common 17:30:00 17:30:00 t Urgent Ur[facility] Care S pirit Care [facility] 2018-07-07 2018-07-07 Outpatient [facility] [id number] Common 11:30:00 11:30:00 t [facility] it [facility] 2018-06-23 2018-06-23 Outpatient [facility] [id number] Common 11:00:00 11:00:00 t [facility] it [facility] 2018-01-22 2018-01-22 Outpatient [facility] [id number] Common 09:00:00 09:00:00 t [facility] [address] Spir [address] [facility] 2017-12-29 2017-12-29 Outpatient [facility] [id number] Common 15:51:00 15:51:00 t [facility] [address] Spir [address] [facility] 2017-12-16 2017-12-16 Outpatient [facility] [id number] Common 09:15:00 09:15:00 t [facility] [address] Spir [address] [facility] 2017-10-15 2017-10-15 Outpatient [facility] [id number] Common 16:15:00 16:15:00 t Urgent Urgent Care S [facility] 2017-10-13 2017-10-13 Outpatient [facility] [id number] Common 14:45:00 14:45:00 t [facility] [address] Spir [address] [facility] 2017-10-07 2017-10-07 Outpatient [facility] [id number] Common 13:00:00 13:00:00 t [facility] [address] Spir [address] [facility] Results This patient has no known results.
[2022-11-16 12:54] LABS: Absolute Lymphocytes (CBC) 2.2 K/uL (0.7-4.9); Hematocrit 37.4 % (36.0-45.0); Lymphocytes % 32.9 % (15.3-44.8); MCV 92.1 fL (80-100); RBC Red Blood Cell Count 4.06 M/uL (3.86-4.86)
[2022-11-16 13:08] LABS: Potassium 3.7 mEq/L (3.5-5.1)
--- NOTE | 2022-11-16 13:40 | RAD REPORT ---
EXAM DESCRIPTION: CT - [id number] - 11/16/2022 1:32 pm CLINICAL HISTORY: Trauma, head and neck injury. TRAUMA COMPARISON: Neck Angio dated 11/16/2022; Neck Angio dated 05/21/2019 TECHNIQUE: Axial 5 mm thick images of the head were obtained. Axial 2 mm thick images of the cervical spine were obtained with sagittal and coronal reconstruction images generated and reviewed. All CT scans are performed using dose optimization technique as appropriate and may include automated exposure control or mA/KV adjustment according to patient size. FINDINGS: CT HEAD WITHOUT CONTRAST: No acute hemorrhage, hydrocephalus or extra-axial collection is identified.No areas of brain edema or midline shift. The paranasal sinuses and mastoids are clear.The calvarium is intact. CT CERVICAL SPINE WITHOUT CONTRAST: No fracture or subluxation.Mild midcervical spondylosis.No prevertebral soft tissues swelling is iden tified. IMPRESSION: No acute intracranial or cervical spine findings.
--- NOTE | 2022-11-16 13:46 | RAD REPORT ---
EXAM DESCRIPTION: CT - Neck Angio - 11/16/2022 1:32 pm CLINICAL HISTORY: TRAUMA COMPARISON: Neck Angio dated 05/21/2019; Head C Spine Mpr Wo Con dated 11/16/2022 TECHNIQUE: CT angiography of the neck vessels was performed with MIPs. All CT scans are performed using dose optimization technique as appropriate and may include automated exposure control or mA/KV adjustment according to patient size. FINDINGS: A left aortic arch is identified with normal three vessel configuration of the great vesse ls. No significant flow abnormality is seen of the common carotid bilaterally. There is mild mixed plaque seen involving both proximal internal carotid arteries. This results in le ss than 50% stenosis bilaterally based on NASCET criteria. Normal flow is seen within both vertebral arteries. Mildly prominent nonspecific lymph nodes bilaterally. IMPRESSION: There is mild mixed plaque seen in both proximal internal carotid arteries. This results in mild bilateral stenosis less than 50% based on NASCET criteria. No severe stenosis or significant flow alteration noted. NASCET criteria used. Mild 0-49% stenosis Moderate 50-69% stenosis Severe 70-99% stenosis
--- NOTE | 2022-11-16 14:08 | EDPHYS ---
Physician Documentation [facility] Name: Shirley San Age: 61 yrs Sex: Female : 1960 Arrival Date: 11/16/2022 Time: 12:22 Bed 6 Private MD: ED Physician Miguel Brady HPI: 11/16 14:12 This 61 yrs old Female presents to ER via EMS with complaints of Fall Injury. ms3 14:12 61-year-old female past medical history of diabetes, hyperlipidemia, hypertension ms3 presents for fall 1939 5 minutes prior to arrival. Patient states she tripped over a baby gate. Patient is complaining of left neck, headache. Patient denies loss of consciousness when falling. Patient states she did strike her neck on the door frame when falling. EMS notes patient was ambulatory on scene. Patient denies nausea or vomiting. Historical: - Allergies: 12:32 unknown antibiotic; ph - PMHx: 12:32 Diabetes - NIDDM; High Cholesterol; Hypertension; ph - Immunization history:: Adult Immunizations unknown. - Social history:: Smoking status: Patient denies any tobacco usage or history of. ROS: 14:12 Constitutional: Negative for fever, and chills. ms3 14:12 Neck: Positive for Pain. 14:12 Neuro: Positive for headache. 14:12 All other systems are negative. Exam: 14:12 Constitutional: This is a well developed, well nourished patient who is awake, alert, ms3 and in no acute distress. Head/Face: Normocephalic, atraumatic. 14:12 Cardiovascular: Regular rate and rhythm with a normal S1 and S2. No gallops, murmurs, or rubs. Normal PMI, no JVD. No pulse deficits. Respiratory: Lungs have equal breath sounds bilaterally, clear to auscultation and percussion. No rales, rhonchi or wheezes noted. No increased work of breathing, no retractions or nasal flaring. Abdomen/GI: Soft, non-tender, with normal bowel sounds. No distension or tympany. No guarding or rebound. No evidence of tenderness throughout. Skin: Warm, dry with normal turgor. Normal color with no rashes, no lesions, and no evidence of cellulitis. MS/ Extremity: Pulses equal, no cyanosis. Neurovascular intact. Full, normal range of motion. Neuro: Awake and alert, GCS 15, oriented to person, place, time, and situation. Cranial nerves II-XII grossly intact. Motor strength 5/5 in all extremities. Sensory grossly intact. Cerebellar exam normal. Normal gait. 14:12 Neck: External neck: ecchymosis, that is mild, of the left sternocleidomastoid. Vital Signs: 12:28 BP 137 / 77; Pulse 70; Resp 18; Temp 97.8; Pulse Ox 97% on R/A; Weight 69.4 kg; Height ph 4 ft. 10 in. ; 13:30 BP 129 / 77; Pulse 67; Resp 16; Pulse Ox 97% ; me1 12:28 Body Mass Index 31.98 (69.40 kg, 147.32 cm) ph Nora Coma Score: 12:35 Eye Response: spontaneous(4). Motor Response: obeys commands(6). Verbal Response: ph oriented(5). Total: 15. Trauma Score (Adult): 12:35 Eye Response: spontaneous(1); Verbal Response: oriented(1); Motor Response: obeys ph commands(2); Systolic BP: > 89 mm Hg(4); Respiratory Rate: 10 to 29 per min(4); [place] Score: 15; Trauma Score: 12 MDM: 12:33 Patient medically screened. ms3 14:12 Differential diagnosis: abrasion, closed head injury, contusion, fracture, sprain, ms3 strain. Data reviewed: vital signs, nurses notes, lab test result(s), radiologic studies, CT scan. Historians other than the Patient: EMS: . Counseling: I had a detailed discussion with the patient and/or guardian regarding: the historical points, exam findings, and any diagnostic results supporting the discharge/admit diagnosis, lab results, radiology results, the need for outpatient follow up, to return to the emergency department if symptoms worsen or persist or if there are any questions or concerns that arise at home. Special discussion: I discussed with the patient/guardian in detail that at this point there is no indication for admission to the hospital. It is understood, however, that if the symptoms persist or worsen the patient needs to return immediately for re-evaluation. ED course: Discussed CT results with patient. Patient states she is comfortable for discharge at this time. On reevaluation patient alert and oriented x4, no apparent distress, nontoxic-appearing, ambulatory number department. Return precautions discussed include worsening symptoms, or any other concerns. Patient follow-up with her primary care physician in 2 to 3 days. Patient given prescription for Flexeril and ibuprofen.. 11/16 12:34 Order name: CBC with Diff; Complete Time: 13:19 ms3 11/16 12:34 Order name: BMP; Complete Time: 13:19 ms3 11/16 12:34 Order name: CT Neck Angio; Complete Time: 14:07 ms3 11/16 12:49 Order name: Head C Spine Mpr Wo Con; Complete Time: 14:07 EDMS Administered Medications: No medications were administered Disposition Summary: 11/16/22 14:08 Discharge Ordered Location: Home ms3 Condition: Stable ms3 Diagnosis - Neck pain ms3 - Contusion of other specified part of neck ms3 - Acute post-traumatic headache ms3 - Fall on same level, unspecified ms3 Followup: ms3 - With: Private Physician - When: 2 - 3 days - Reason: Recheck today's complaints Discharge Instructions: - Discharge Summary Sheet ms3 - Contusion ms3 - Fall Prevention in the Home, Adult ms3 - Contusion, [id number] ms3 Forms: - Medication Reconciliation Form ms3 - Thank You Letter ms3 - Antibiotic Education ms3 - Prescription Opioid Use ms3 - Patient Portal Instructions ms3 Prescriptions: - Ibuprofen 600 mg Oral Tablet - take 1 tablet by ORAL route every 6 hours As needed take with food; 30 tablet; ms3 Refills: 0, Product Selection Permitted - Cyclobenzaprine 5 mg Oral Tablet - take 1 tablet by ORAL route 3 times per day As needed; 15 tablet; Refills: 0, ms3 Product Selection Permitted Signatures: Dispatcher [employer] EDBette Cornell RN RN ph Miguel Brady DO DO ms3 Corrections: (The following items were deleted from the chart) 12:47 12:35 C Spine Wo Con+CT.RAD.BRZ ordered. EDMS EDMS 12:49 12:35 Head Brain Wo Cont+CT.RAD.BRZ ordered. EDMS EDMS
--- NOTE | 2022-11-16 14:08 | ER ---
Nurse's Notes [facility] Name: Shirley San Age: 61 yrs Sex: Female : 1960 Arrival Date: 11/16/2022 Time: 12:22 Bed 6 Private MD: Diagnosis: Neck pain;Contusion of other specified part of neck;Acute post-traumatic headache;Fall on same level, unspecified Presentation: 11/16 12:28 Chief complaint: EMS states: Tripped over a baby gate, fell and hit L side of neck ph against door frame, c/o neck pain, dizziness and headache, no LOC, does take 81 mg ASA. Coronavirus screen: Vaccine status: Patient reports receiving the 2nd dose of the covid vaccine. Ebola Screen: No symptoms or risks identified at this time. Initial Sepsis Screen: Does the patient meet any 2 criteria? No. Patient's initial sepsis screen is negative. Does the patient have a suspected source of infection? No. Patient's initial sepsis screen is negative. Risk Assessment: Do you want to hurt yourself or someone else?. Onset of symptoms was November 16, 2022. 12:28 Method Of Arrival: EMS: [facility] ph 12:28 Acuity: SAÚL 3 ph 12:36 Care prior to arrival: None. Mechanism of Injury: Fall from standing position. Trauma ph event details: Injury occurred in the [facility], Injury occurred: at home. Injury occurred: November 16, 2022. Triage Assessment: 12:32 General: Appears in no apparent distress. well groomed, Behavior is calm, cooperative, ph appropriate for age. Pain: Complains of pain in left sternocleidomastoid. Neuro: Level of Consciousness is awake, alert, obeys commands, Oriented to person, place, time, situation. Cardiovascular: Capillary refill < 3 seconds in bilateral fingers Patient's skin is warm and dry. Respiratory: Airway is patent Respiratory pattern is regular, symmetrical. Derm: Bruising that is dark purple, on left sternocleidomastoid. Musculoskeletal: Circulation, motion, and sensation intact. Range of motion: intact in all extremities, Swelling present in left sternocleidomastoid. Trauma Activation: Not Applicable Physician: ED Physician; Name: ; Notified At: ; Arrived At: Physician: General Surgeon; Name: ; Notified At: ; Arrived At: Physician: Radiology; Name: ; Notified At: ; Arrived At: Physician: Respiratory; Name: ; Notified At: ; Arrived At: Physician: Lab; Name: ; Notified At: ; Arrived At: Historical: - Allergies: 12:32 unknown antibiotic; ph - PMHx: 12:32 Diabetes - NIDDM; High Cholesterol; Hypertension; ph - Immunization history:: Adult Immunizations unknown. - Social history:: Smoking status: Patient denies any tobacco usage or history of. Screenin:35 [facility] ED Fall Risk Assessment (Adult) History of falling in the last 3 months, ph including since admission Yes- single mechanical fall (1 pt) Confusion or Disorientation No (0 pts) Intoxicated or Sedated No (0 pts) Impaired Gait No (0 pts) Mobility Assist Device Used No (0 pt) Altered Elimination No (0 pt) Score/Fall Risk Level 0 - 2 = Low Risk Oriented to surroundings, Maintained a safe environment, Provided non-skid footwear, Hourly rounding (assess needs \T\ fall precautionary measures) done. Abuse screen: Denies threats or abuse. Denies injuries from another. Nutritional screening: No deficits noted. Tuberculosis screening: No symptoms or risk factors identified. Primary Survey: 12:33 NO uncontrolled hemorrhage observed. A: The client is awake and alert. The airway is ph patent. Breathing/Chest: Spontaneous respiratory effort, equal unlabored respirations, breath sounds clear bilaterally, regular pattern, symmetrical chest rise and fall. Circulation: No external hemorrhage present. Regular and strong central pulse, skin warm/dry/normal color. Disability Pupils are equal, round, reactive to light and accommodation. Exposure/Environment: There is no evidence of uncontrolled external bleeding. No obvious injuries are noted at this time. A warming method has been applied: A warm blanket has been provided to the patient. Assessment: 12:30 General: Appears uncomfortable, Behavior is calm, cooperative, appropriate for age. me1 Pain: Complains of pain in left neck and head Pain does not radiate. Pain currently is 10 out of 10 on a pain scale. Quality of pain is described as burning, sharp, Pain began suddenly. Neuro: Level of Consciousness is awake, alert, obeys commands, Oriented to person, place, time, situation. Cardiovascular: Capillary refill < 3 seconds Patient's skin is warm and dry. Respiratory: Respiratory effort is even, unlabored, Respiratory pattern is regular, symmetrical. 14:00 Reassessment: Patient appears in no apparent distress at this time. Patient and/or hb family updated on plan of care and expected duration. Pain level reassessed. Patient is alert, oriented x 3, equal unlabored respirations, skin warm/dry/pink. Vital Signs: 12:28 BP 137 / 77; Pulse 70; Resp 18; Temp 97.8; Pulse Ox 97% on R/A; Weight 69.4 kg; Height ph 4 ft. 10 in. ; 13:30 BP 129 / 77; Pulse 67; Resp 16; Pulse Ox 97% ; me1 12:28 Body Mass Index 31.98 (69.40 kg, 147.32 cm) ph Nora Coma Score: 12:35 Eye Response: spontaneous(4). Motor Response: obeys commands(6). Verbal Response: ph oriented(5). Total: 15. Trauma Score (Adult): 12:35 Eye Response: spontaneous(1); Verbal Response: oriented(1); Motor Response: obeys ph commands(2); Systolic BP: > 89 mm Hg(4); Respiratory Rate: 10 to 29 per min(4); Nora Score: 15; Trauma Score: 12 ED Course: 12:28 Patient arrived in ED. ph 12:30 No provider procedures requiring assistance completed. me1 12:30 Provided Education on: POC. Verbalized understanding. . me1 12:31 Triage completed. ph 12:32 Inserted saline lock: 20 gauge in right antecubital area, using aseptic technique. hb Blood collected. 12:32 Arm band placed on Patient placed in an exam room, on a stretcher, on pulse oximetry. ph 12:33 Miguel Brady DO is Attending Physician. ms3 12:35 Patient has correct armband on for positive identification. Placed in gown. Bed in low ph position. Call light in reach. Side rails up X2. Pulse ox on. NIBP on. Door closed. Noise minimized. Warm blanket given. Ice pack to injury. 12:37 Patient maintains SpO2 saturation greater than 95% on room air. Thermoregulation: warm ph blanket given to patient. 12:38 Jessica Jacques RN is Primary Nurse. me1 13:34 CT Neck Angio In Process Unspecified. EDMS 13:34 Head C Spine Mpr Wo Con In Process Unspecified. EDMS 14:49 IV discontinued, intact, bleeding controlled, No redness/swelling at site. hb Administered Medications: No medications were administered Medication: 12:38 VIS not applicable for this client. ph Outcome: 14:08 Discharge ordered by . ms3 14:49 Discharged to home via wheelchair. 14:49 Condition: stable 14:49 Discharge instructions given to patient, Instructed on discharge instructions, follow up and referral plans. medication usage, Demonstrated understanding of instructions, follow-up care, medications, Prescriptions given X 2. 14:49 Patient left the ED. Signatures: Dispatcher [employer] Bette Leo, RN RN Jolene Zamudio, RN RN Miguel Brady DO DO ms3 Jessica Jacques RN RN me1
[2022-11-16 15:02] VITALS: TEMP 97.8; O2SAT 97
[2022-11-16 15:12] VITALS: BP 129/77
== END 2022-11-16 14:49 | disposition home or self-care (01) ==
LOC: ER 12:22
DX: S10.83XA Contusion of other specified part of neck, initial encounter (principal); G44.319 Acute post-traumatic headache, not intractable; W18.30XA Fall on same level, unspecified, initial encounter; I10 Essential (primary) hypertension
CPT/HCPCS: 85025; 80048; 36415; 70450; 72125; 70498; 99285; Q9967

== ENCOUNTER 2022-12-05 16:16 | Emergency (ER) | payer OTHER ==
--- OUTSIDE RECORDS SUMMARY | 2022-12-05 16:20 | XMS REPORT | Continuity of Care Document ---
:1960 Author Organization Formerly [facility] t Address [address] [place]. [address] [place] [address] Care Team Providers Name Role Phone Luke [...] Number Effective Date Expiration Date Shaka fox [facility] [id number] 2016 MEDICAID STAR+PLUS 00:00:00 ELLIE FRANCIS [facility] [id number] 2019 00:00:00 [facility] [id number] 2016 MEDICAID 00:00:00 Problems Condition Condition Condition Status Onset Resolution Last Treating Co mments Source Name Details Category Date Date Treatment Clinician Date [id number] Mixed Problem Active Common hyperlipid Spirit em[facility] [id number] Depression Problem Active Com mon with Spirit anxiety [facility] [id number] Hyperglyce Problem Active Com mon artie [facility] [id number] Seasonal Problem Active Comm on allergic Spirit rhinitis, - [facility] unspecifie d [facility] [id number] Primary Problem Active Common insomnia Spirit [facility] [id number] Muscle Problem Active Common strain [facility] [id number] Gastroesop Problem Active Co mmon hageal Spirit reflux - [facility] disease [facility] esophagiti Medica [facility] [place] [id number] Essential Problem Active Comm on hypertensi Spirit on [facility] [id number] Acute pain Problem Active Com mon of right Spirit hip [facility] [id number] 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., 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 [facility] [id number] Body mass Problem Active Com mon index Spirit (BMI) of - [facility] 40.0-44.9 [facility] in [facility] [id number] Primary Problem Active Comm on osteoarthr Spirit itis of [facility] right knee [facility] [id number] Primary Problem Active Comm on osteoarthr Spirit itis of [facility] left knee [facility] Allergies, Adverse Reactions, Alerts Allergy Allergy Status Severity Reaction(s) Onset Inactive Treating Comm ents Source Name Type Date Date Clinician NO KNOWN Drug Active Univers ALLERGIE Class ity [facility] Social History Social Habit Start Date Stop Date Quantity Comments Source Exposure to SARS-CoV-2 Yes Un [facility] History of Tobacco Use Co mmon [facility] Sex Assigned At Com mon [facility] Smoking Status Start Date Stop Date Source Unknown if ever smoked [facility] [place] Former Smoker 2021-11-15 00:00:00 2021-11-15 00:00:00 Common S pirit [facility] nter Medications Ordered Filled Start Stop Current Ordering Indication Dosage Frequency Signature Comments Components Source Medication Medication Date Date Medication? Clinician (SIG) Name Name Ketorolac Ketorolac No 60mg Com mon 15mg 15mg 8- Spirit 00:00: - [facility] Ketorolac Ketorolac No 60mg Com mon 15mg 15mg 12-09 Spirit 00:00: - [facility] 00 [facility] Methocarbam Methocarbam 2019- No Romy 1 tablet Common ol ol 12-09 [place] [facility] 00:00: 00:00 - [facility]I 00 :00 [facility] Claritin Claritin 0 2019- No Romy 1 tablet Common 07-07 [place] Spirit 00:00: 00:00 - [facility]I 00 :00 [facility] HydrOXYzine HydrOXYzine Yes Romy 1 tablet Common HCl HCl 12-16 [place] as needed Spirit 00:00: - [facility] 00 [facility] hydrOXYzine hydrOXYzine No 1{table QID hydrOXYzin HCl 50 MG HCl 50 MG 12-16 t_as_ne e HCl 50 00:00: eded} MG 00 hydrOXYzine hydrOXYzine No 1{table QID hydrOXYzin HCl 50 MG HCl 50 MG 12-16 t_as_ne e HCl 50 00:00: eded} MG 00 Toradol Toradol No 60mg Common (Ketorolac) (Ketorolac) 6-27 S pirit 00:00: - [facility]I 00 [facility] Toradol Toradol No 60mg Common (Ketorolac) (Ketorolac) 6-27 S pirit 00:00: - [facility]I 00 [facility] Fluticasone Fluticasone Yes Romy 1 spray in Common Propionate Propionate 10-07 [place] each Sp radha 00:00: nostril - [facility]I 00 [facility] Esomeprazol Esomeprazol Yes Romy 1 tablet Common e Magnesium e Magnesium [place] [facility] - [facility] Lopid Lopid Yes Romy TAKE ONE Common [place] TABLET BY Spirit MOUTH - [facility]I TWICE A [facility] Aspirin Aspirin Yes Romy 1 tablet Com mon [place] [facility] - [facility] Trazodone Trazodone Yes Romy 1 tablet Common HCl HCl [place] at bedtime Spirit as needed - [facility] Coreg Coreg Yes Romy TAKE ONE Common [place] TABLET BY Spirit MOUTH - CHI TWICE A [facility] Pyridium Pyridium Yes Romy 1 tablet C ommon [place] after Spirit meals - [facility] Lipitor Lipitor Yes Romy TAKE ONE Com mon [place] TABLET BY Spirit MOUTH - [facility]I EVERY [facility] NIGHT AT [facility] BEDTIME [facility] Carvedilol Carvedilol Yes Romy bid C ommon [place] [facility] - [facility] Lexapro Lexapro Yes Romy TAKE ONE Com mon [place] TABLET BY Spirit MOUTH - [facility] DAILY [facility] Metformin Metformin Yes Romy 1 tablet Common HCl HCl [place] with a Spirit meal - [facility] Esomeprazol Esomeprazol Yes Romy TAKE ONE Common e Magnesium e Magnesium [place] CAPSULE BY Spirit MOUTH - [facility] DAILY [facility] Victoza Victoza Yes Romy not Common [place] defined Spirit - [facility] Lexapro 20 Lexapro 20 No Lexapro 20 [...] 01-03 [place] Spirit 00:00 - CHI :00 [facility] Immunizations Ordered Immunization Filled Immunization Date Status Commen ts Source Name Name Flucelvax - single Flucelvax - single 2018-01-22 Completed Common Spirit dose syringe dose syringe 10:06:00 - [facility] Flucelvax - single Flucelvax - single 2018-01-22 Completed Common Spirit dose syringe dose syringe 10:06:00 - [facility] Flucelvax Flucelvax 2018-01-22 Completed Common Spirit 00:00:00 - [facility] Vital Signs Vital Name Observation Time Observation Value Comments Source height 2021-11-15 13:30:00 59 [in_i] Common [facility] weight 2021-11-15 13:30:00 166 [lb_av] Common [facility] bmi 2021-11-15 13:30:00 33.52 kg/m2 Common [facility] blood pressure 2021-11-15 13:30:00 130 mm[Hg] Common [facility] - systolic [facility] blood pressure 2021-11-15 13:30:00 82 mm[Hg] Common [facility] - diastolic [facility] Procedures This patient has no known procedures. Encounters Start End Encounter Admission Attending Care Care Encounter Source Date/Time Date/Time Type Type Clinicians Facility Department ID 2021-11-23 Outpatient Jamison, STLMLC STLMLC [id number] Common 15:42:01 Luke [facility] 2021-11-16 Outpatient Jamison, STLMLC STLMLC [id number] Common 09:32:00 Luke [facility] 2021-11-15 Outpatient Jamison, STLMLC STLMLC [id number] Common 13:19:01 Luke [facility] 2021-11-08 Outpatient zzzGowda, STLMLC STLMLC [id number] Common 08:46:00 Ambrose [facility] 2021-10-10 Outpatient zzzGowda, STLMLC STLMLC [id number] Common 16:31:00 Ambrose [facility] 2021-09-13 Outpatient zzzGowda, STLMLC STLMLC [id number] Common 09:44:00 Ambrose [facility] 2020-09-07 Outpatient [facility] [id number] [place] 14:24:41 [facility] 2021-11-15 2021-11-15 OFFICE STLMLC STLMLC [id number] Co mmon 00:00:00 00:00:00 VISIT [facility] PT LEVEL 4 [facility] 2021-09-13 2021-09-13 (TEL) STLMLC STLMLC [id number] Co mmon 00:00:00 00:00:00 Spirit - [facility] 2020-05-11 2020-05-11 Outpatient R RADIOLOGY [facility] [id number] Univers 00:00:00 00:00:00 ity of [facility] 2020-01-21 2020-01-23 Inpatient YEIMI ALARCONSE MELO [id number] MH 05:17:00 11:30:00 TANIA metcalf [facility] 2019-11-05 2019-11-05 Telephone TANIA [place] [id number] 00:00:00 00:00:00 Aneatrice MARIA DEL CARMEN [id number] [facility] [id number] 2019-11-05 2019-11-05 Telephone TANIA [place] [id number] [facility] 00:00:00 00:00:00 Aneatrice MARIA DEL CARMEN [id number] ity [facility] [id number] Lionel as [phone] [address] 2019-11-01 2019-11-01 Laboratory Lab, [facility] [id number] 13:27:22 13:47:22 Only Fam Pob I Health [id number] [place] [id number] Professio [phone] [place] [address] Office Building [facility] 2019-11-01 2019-11-01 Laboratory Lab, [facility] Fam Pob I [facility] [id number] Univers 13:27:22 13:47:22 Only Unknown, Attending Health [id number] [facility] [id number] Lionel as Professio [phone] Ok dical [address] Office Building One 2019-11-01 2019-11-01 Outpatient R UNKNOWN, [facility] [id number] Univers 13:20:00 13:20:00 ATTENDING ity [facility] 2019-10-17 2019-10-17 Telephone TANIA Berry [id number] 00:00:00 00:00:00 Precious MARIA DEL CARMEN [id number] [facility] [id number] 2019-10-17 2019-10-17 Telephone TANIA Berry [id number] Univers 00:00:00 00:00:00 Precious JOYCE [id number] it y of [facility] [id number] Lionel as [phone] [address] 2019-10-15 2019-10-15 Laboratory Lab, [facility] [id number] 11:46:21 12:06:21 Only Fam Pob I Health [id number] [place] [id number] Professio [phone] nal [facility] Office Building One 2019-10-15 2019-10-15 Laboratory Lab, [facility] Fam Pob I [facility] [id number] [facility] 11:46:21 12:06:21 Only Vidya Johnson [id number] ity [facility] [id number] Lionel as Professio [phone] Ok dical [address] Office Building One 2019-10-15 2019-10-15 Outpatient Jessica JOHNSON, [facility] [id number] Univers 11:40:00 11:40:00 VIDYA rincon [facility] 2019-02-22 2019-02-22 Outpatient Allie Kelley [id number] Common 14:43:00 14:43:00 Nate Sullivan Sp radha DO DO [facility] 2018-12-09 2018-12-09 Outpatient [facility] [id number] Common 17:30:00 17:30:00 t Urgent Urgent Care S pirit Care [facility] 2018-07-07 2018-07-07 Outpatient [facility] [id number] Common 11:30:00 11:30:00 t [facility] it [facility] 2018-06-23 2018-06-23 Out[facility] [id number] Common 11:00:00 11:00:00 t [facility] it [facility] 2018-01-22 2018-01-22 Outpatient [facility] [id number] Common 09:00:00 09:00:[address] [facility] [address] [facility] 2017-12-29 2017-12-29 Outpatient [facility] [id number] Common 15:51:00 15:51:[address] [facility] [address] [facility] 2017-12-16 2017-12-16 Outpatient [facility] [id number] Common 09:15:00 09:15:[address] [facility] [address] [facility] 2017-10-15 2017-10-15 Outpatient [facility] [id number] Common 16:15:00 16:15:00 t Urgent [facility] Care S [facility] 2017-10-13 2017-10-13 Outpatient [facility] [id number] Common 14:45:00 14:45:[address] [facility] [address] [facility] 2017-10-07 2017-10-07 Outpatient [facility] [id number] Common 13:00:00 13:00:[address] [facility] [address] [facility] Results This patient has no known results.
[2022-12-05] MEDS ORDERED: MECLIZINE HCL 12.5 MG TAB ONE (17:23)
[2022-12-05] MEDS ORDERED: ACETAMINOPHEN 500 MG TAB ONE (17:23)
--- NOTE | 2022-12-05 17:35 | RAD REPORT ---
EXAM DESCRIPTION: CT - Head Brain Wo Cont - 12/05/2022 5:20 pm CLINICAL HISTORY: HEADACHE COMPARISON: Head Brain Wo Cont dated 05/21/2019; Head angio dated 05/21/2019 TECHNIQUE: All CT scans are performed using dose optimization technique as appropriate and may inclu de automated exposure control or mA/KV adjustment according to patient size. FINDINGS: No intracranial hemorrhage, hydrocephalus or extra-axial fluid collection.No areas of brai n edema or evidence of midline shift. The paranasal sinuses and mastoids are clear. The calvarium is intact. IMPRESSION: No acute intracranial abnormality.
[2022-12-05 17:51] LABS: Absolute Lymphocytes (CBC) 1.4 K/uL (0.7-4.9); Hematocrit 38.3 % (36.0-45.0); Lymphocytes % 20.1 % (15.3-44.8); MCV 93.6 fL (80-100); MPV 6.9 fL (7.6-11.3); Platelets 257 thou/uL (152-406); RBC Red Blood Cell Count 4.09 M/uL (3.86-4.86)
[2022-12-05 18:09] LABS: Potassium 4.4 mEq/L (3.5-5.1); Troponin High Sensitivity 4.2 pg/mL (<58.9)
[2022-12-05] MEDS ORDERED: DIPHENHYDRAMINE 50 MG/ML VIAL ONE (18:10)
[2022-12-05] MEDS ORDERED: KETOROLAC 30 MG/ML INJ ONE (18:12)
[2022-12-05] MEDS ORDERED: NA CHLORIDE 0.9% 500 ML ONE (18:12)
[2022-12-05] MEDS ORDERED: METOCLOPRAMIDE 10 MG/2mL INJ ONE (18:15)
--- NOTE | 2022-12-05 18:16 | RAD REPORT ---
EXAM DESCRIPTION: RAD - Chest Single View - 12/05/2022 6:07 pm CLINICAL HISTORY: FEVER COMPARISON: Chest Single View dated 06/26/2016; CHEST PA AND LAT 2 VIEW dated 12/14/2013; CHEST PA AND LAT 2 VIEW dated 09/07/2009; CHEST PA AND LAT 2 VIEW dated 07/05/2007 FINDINGS: Lines: None. Lungs: No evidence of edema or pneumonia. Pleural: No significant pleural effusions or pneumothorax. Cardiac: The heart size is within normal limits. Mediastinum: Within normal limits. Bones: No acute fractures. Other: None IMPRESSION: No acute cardiopulmonary disease.
[2022-12-05 20:26] LABS: Specific Gravity 1.007 (1.005-1.030); Urine Bacteria <20 /HPF (<20); Urine Bilirubin NEGATIVE (Negative); Urine Blood Negative (Negative); Urine Clarity Extremely Turbid (Clear); Urine Color Colorless (Yellow); Urine Glucose NEGATIVE (Negative); Urine Protein NEGATIVE (Negative); Urine RBC <5 /HPF (None Seen); Urine Urobilinogen Normal (Normal); Urine pH 5.5 (5.0-7.0)
[2022-12-05] MEDS ORDERED: CEFTRIAXONE 1000 MG/VIAL ONE (20:49)
--- NOTE | 2022-12-05 21:01 | EDPHYS ---
Physician Documentation [facility] Name: Shirley San Age: 62 yrs Sex: Female : 1960 Arrival Date: 12/05/2022 Time: 16:16 Bed 10 Private MD: ED Physician Richard Rawls HPI: 12/05 17:00 This 62 yrs old Female presents to ER via Ambulatory with complaints of cp Headache. 17:00 The patient complains of pain to the back of head. The patient describes the headache cp as aching, waxing and waning. Onset: The symptoms/episode began/occurred 2 day(s) ago. Associated signs and symptoms: Pertinent positives: dizziness, fever, paresthesias, body aches. Severity of symptoms: in the emergency department the pain has improved, took ibuprofen earlier today. 17:00 Fever of 102 this past Friday. cp 17:00 Headache History: The patient has had previous headaches and this one is more severe cp than previous episodes. Historical: - Allergies: 16:41 unknown antibiotic; cm10 - PMHx: 16:41 Hypertension; High Cholesterol; cm10 - PSHx: 16:41 Weight loss surgery; Cholecystectomy; cm10 - Immunization history:: Client reports receiving the 2nd dose of the Covid vaccine. - Social history:: Smoking status: Patient/guardian denies using tobacco, but has a distant history of tobacco abuse. ROS: 17:05 Constitutional: Positive for body aches, chills, Negative for fever, poor PO intake. cp 17:05 Respiratory: Negative for cough, shortness of breath, wheezing. cp 17:05 Abdomen/GI: Negative for abdominal pain. 17:05 Eyes: Negative for injury, pain, redness, and discharge. cp 17:05 ENT: Negative for drainage from ear(s), ear pain, sore throat, difficulty swallowing, difficulty handling secretions. 17:05 Cardiovascular: Negative for chest pain, edema, palpitations. 17:05 : Positive for urinary frequency, Negative for burning with urination. 17:05 Skin: Negative for cellulitis, rash. 17:05 Neuro: Positive for dizziness, headache, weakness, Negative for altered mental status, syncope. 17:05 All other systems are negative. Exam: 17:30 Head/Face: Normocephalic, atraumatic. cp 17:30 Constitutional: The patient appears in no acute distress, alert, awake, non-diaphoretic, non-toxic, well developed, well nourished, uncomfortable. 17:30 Eyes: Periorbital structures: appear normal, Pupils: equal, round, and reactive to light and accomodation, Extraocular movements: intact throughout, Conjunctiva: normal, no exudate, no injection, Sclera: no appreciated abnormality, Lids and lashes: appear normal, bilaterally. 17:30 ENT: External ear(s): are unremarkable, Ear canal(s): are normal, clear, TM's: dullness, bilaterally, Nose: is normal, Mouth: is normal, Posterior pharynx: is normal, airway is patent, no erythema, no exudate, Voice: is normal. 17:30 Neck: ROM/movement: is normal, is supple, no range of motions limitations, no meningismus, no nuchal rigidity. 17:30 Chest/axilla: Inspection: normal, Palpation: is normal, no crepitus, no tenderness. 17:30 Cardiovascular: Rate: normal, Rhythm: regular, Edema: is not appreciated, JVD: is not appreciated. 17:30 Respiratory: the patient does not display signs of respiratory distress, Respirations: normal, no use of accessory muscles, no retractions, labored breathing, is not present, Breath sounds: are clear throughout, no decreased breath sounds, no stridor, no wheezing. 17:30 Abdomen/GI: Inspection: abdomen appears normal, Palpation: abdomen is soft and non-tender, in all quadrants. 17:30 Back: ROM is normal, CVA tenderness, is absent. 17:30 Skin: cellulitis, is not appreciated, no rash present. 17:30 Neuro: Orientation: to person, place \T\ time. Mentation: is normal, Cerebellar function: is grossly normal, Motor: moves all fours, strength is normal, Sensation: is normal. 17:35 ECG was reviewed by the Attending Physician. cp Vital Signs: 16:37 BP 138 / 93; Pulse 84; Resp 18; Temp 99.2; Pulse Ox 100% ; Weight 69.4 kg; Height 4 ft. cm10 11 in. ; Pain 0/10; 18:19 BP 138 / 78; Pulse 63; Resp 14; Pulse Ox 98% on R/A; Pain 3/10; nj1 20:27 BP 121 / 74; Pulse 74; Resp 18; Pulse Ox 99% on R/A; kl 21:07 BP 128 / 81; Pulse 70; Resp 20; Temp 98(TE); Pulse Ox 98% on R/A; kl 16:37 Body Mass Index 30.90 (69.40 kg, 149.86 cm) cm10 16:37 Pain Scale: Adult cm10 18:19 Pain Scale: Adult nj1 MDM: 16:49 Patient medically screened. cp 21:00 Data reviewed: vital signs, nurses notes, lab test result(s), EKG, radiologic studies, cp CT scan, plain films. 21:00 Care significantly affected by the following chronic conditions: Hypertension. cp Counseling: I had a detailed discussion with the patient and/or guardian regarding the historical points, exam findings, and any diagnostic results supporting the discharge/admit diagnosis, lab results, radiology results, the need for outpatient follow up, a family practitioner, to return to the emergency department if symptoms worsen or persist or if there are any questions or concerns that arise at home. Response to treatment: the patient's symptoms have markedly improved after treatment, patient is well hydrated. VSS. Patient reports headache and symptoms markedly improved. Discussed results of today's testing and patient appears non-toxic. Will discharge to home for continued monitoring. 12/05 16:58 Order name: Basic Metabolic Panel; Complete Time: 18:22 12/05 18:22 Interpretation: Reviewed. 12/05 16:58 Order name: CBC with Diff; Complete Time: 18:05 12/05 18:05 Interpretation: Normal except: MPV 6.9. 12/05 16:58 Order name: Magnesium; Complete Time: 18:22 12/05 18:39 Interpretation: Reviewed. 12/05 16:58 Order name: Troponin HS; Complete Time: 18:22 12/05 18:22 Interpretation: Reviewed. 12/05 16:58 Order name: Urinalysis W/Microscopic; Complete Time: 20:30 12/05 16:58 Order name: COVID-19 SARS RT PCR; Complete Time: 18:38 12/05 18:38 Interpretation: Reviewed. 12/05 16:58 Order name: Influenza Screen (a \T\ B); Complete Time: 18:22 cp 12/05 18:23 Interpretation: Reviewed. 12/05 16:58 Order name: CT Head Brain wo Cont; Complete Time: 18:05 cp 12/05 18:05 Interpretation: Report reviewed. 12/05 16:58 Order name: XRAY Chest (1 view); Complete Time: 18:22 cp 12/05 18:39 Interpretation: Report review. 12/05 16:58 Order name: EKG; Complete Time: 16:59 cp 12/05 16:58 Order name: Cardiac monitoring; Complete Time: 17:51 cp 12/05 16:58 Order name: EKG - Nurse/Tech; Complete Time: 17:51 cp 12/05 16:58 Order name: IV Saline Lock; Complete Time: 17:51 cp 12/05 16:58 Order name: Labs collected and sent; Complete Time: 17:51 cp 12/05 16:58 Order name: O2 Per Protocol; Complete Time: 17:08 cp 12/05 16:58 Order name: O2 Sat Monitoring; Complete Time: 17:08 EC:35 Rate is 74 beats/min. Rhythm is regular. NH interval is normal. QRS interval is normal. cp QT interval is normal. T waves are Inverted in lead aVR. Interpreted by me. Reviewed by me. Administered Medications: 17:40 Drug: Acetaminophen PO 1000 mg Route: PO; tx1 21:07 Follow up: Response: No adverse reaction kl 17:40 Drug: Meclizine PO 25 mg Route: PO; nj1 21:07 Follow up: Response: No adverse reaction; Marked relief of symptoms kl 18:19 Drug: Ketorolac IVP 15 mg Route: IVP; Site: right antecubital; nj1 21:07 Follow up: Response: No adverse reaction; Marked relief of symptoms kl 18:19 Drug: NS 0.9% IV 500 ml Route: IV; Rate: bolus; Site: right antecubital; nj1 20:28 Follow up: IV Status: Completed infusion; IV Intake: 500ml kl 18:20 Drug: metoCLOPramide IVP 10 mg Route: IVP; Site: right antecubital; nj1 21:07 Follow up: Response: No adverse reaction; Marked relief of symptoms kl 18:20 Drug: diphenhydrAMINE IVP 12.5 mg Route: IVP; Site: right antecubital; [facility] 20:46 Drug: Rocephin IV 1 grams Route: IV; Rate: calculated rate; Site: right antecubital; 21:07 Follow up: Response: No adverse reaction kl Disposition Summary: 12/05/22 21:00 Discharge Ordered Location: Home cp Problem: new cp Symptoms: have improved cp Condition: Stable cp Diagnosis - Headache cp - UTI/ Urinary tract infection, site not specified cp Followup: cp - With: Private Physician - When: 2 - 3 days - Reason: Recheck today's complaints Discharge Instructions: - Discharge Summary Sheet cp - General Headache Without Cause cp - Urinary Tract Infection, Adult cp Forms: - Medication Reconciliation Form cp - Thank You Letter cp - Antibiotic Education cp - Prescription Opioid Use cp - Patient Portal Instructions cp - Leadership Thank You Letter cp Prescriptions: - Ibuprofen 800 mg Oral Tablet - take 1 tablet by ORAL route every 8 hours As needed take with food; 30 tablet; cp Refills: 0, Product Selection Permitted - Zofran 4 mg Oral Tablet - take 1 tablet by ORAL route every 12 hours As needed; 20 tablet; Refills: 0, cp Product Selection Permitted - cefpodoxime 200 mg Oral Tablet - take 1 tablet by ORAL route every 12 hours for 7 days with food; 14 tablet; cp Refills: 0, Product Selection Permitted Addendum: 12/08/2022 20:38 Co-signature as Attending Physician, Richard Rawls MD I reviewed the patient's care r t provided by the Advanced Practice Provider and agree with the diagnosis and treatment plan. Signatures: Dispatcher [employer] Rosalia Laughlin RN RN kl Page, Corey, PA PA cp Richard Rawls MD MD rt Meagan Lepe RN RN nj1 Misty Johnson RN RN cm10 Corrections: (The following items were deleted from the chart) 12/05 16:42 16:41 PMHx: Diabetes - NIDDM; cm10 cm10
--- NOTE | 2022-12-05 21:01 | ER ---
Nurse's Notes [facility] Name: Shirley San Age: 62 yrs Sex: Female : 1960 Arrival Date: 12/05/2022 Time: 16:16 Bed 10 Private MD: Diagnosis: Headache;UTI/ Urinary tract infection, site not specified Presentation: 12/05 16:37 Chief complaint: Patient states: Headaches, fever, body aches since yesterday. Have cm10 been taking ibuprofen for fever, helps with headache. Took ibuprofen last at about 3pm. Pt states her nose started running today. Coronavirus screen: Vaccine status: Patient reports receiving the 2nd dose of the covid vaccine. Ebola Screen: Patient denies travel to an Ebola-affected area in the 21 days before illness onset. Initial Sepsis Screen: Does the patient meet any 2 criteria? No. Patient's initial sepsis screen is negative. Does the patient have a suspected source of infection? No. Patient's initial sepsis screen is negative. Risk Assessment: Do you want to hurt yourself or someone else? Patient reports no desire to harm self or others. Onset of symptoms was December 04, 2022. 16:37 Method Of Arrival: Ambulatory cm10 16:37 Acuity: SAÚL 3 cm10 Triage Assessment: 16:43 Headache History: The patient has had previous headaches. General: Appears in no cm10 apparent distress. uncomfortable, Behavior is calm, cooperative, appropriate for age. Pain: Denies pain. Neuro: Level of Consciousness is awake, alert, obeys commands, Oriented to person, place, time, situation, Reports weakness Fatigued. Cardiovascular: Patient's skin is warm and dry. Respiratory: Airway is patent Respiratory effort is even, unlabored. Historical: - Allergies: 16:41 unknown antibiotic; cm10 - PMHx: 16:41 Hypertension; High Cholesterol; cm10 - PSHx: 16:41 Weight loss surgery; Cholecystectomy; cm10 - Immunization history:: Client reports receiving the 2nd dose of the Covid vaccine. - Social history:: Smoking status: Patient/guardian denies using tobacco, but has a distant history of tobacco abuse. Screenin:50 [facility] ED Fall Risk Assessment (Adult) Score/Fall Risk Level 0 - 2 = Low Risk nj1 Oriented to surroundings, Maintained a safe environment, Hourly rounding (assess needs \T\ fall precautionary measures) done. Abuse screen: Denies threats or abuse. Denies injuries from another. Nutritional screening: No deficits noted. Tuberculosis screening: No symptoms or risk factors identified. Assessment: 16:49 Reassessment: See triage assessment. nj1 18:19 Reassessment: Patient appears in no apparent distress at this time. Patient and/or nj1 family updated on plan of care and expected duration. Pain level reassessed. Patient is alert, oriented x 3, equal unlabored respirations, skin warm/dry/pink. 20:27 Reassessment: Patient appears in no apparent distress at this time. Patient denies pain kl at this time. Patient states feeling better. Patient states symptoms have improved. Vital Signs: 16:37 BP 138 / 93; Pulse 84; Resp 18; Temp 99.2; Pulse Ox 100% ; Weight 69.4 kg; Height 4 ft. cm10 11 in. ; Pain 0/10; 18:19 BP 138 / 78; Pulse 63; Resp 14; Pulse Ox 98% on R/A; Pain 3/10; nj1 20:27 BP 121 / 74; Pulse 74; Resp 18; Pulse Ox 99% on R/A; kl 21:07 BP 128 / 81; Pulse 70; Resp 20; Temp 98(TE); Pulse Ox 98% on R/A; kl 16:37 Body Mass Index 30.90 (69.40 kg, 149.86 cm) cm10 16:37 Pain Scale: Adult cm10 18:19 Pain Scale: Adult nj1 ED Course: 16:17 Patient arrived in ED. rg4 16:19 Roque Mccloud PA is PHCP. cp 16:19 Roque Ramírez MD is Attending Physician. cp 16:41 Triage completed. cm10 16:42 Arm band placed on right wrist. cm10 16:49 Meagan Lepe, LIZETTE is Primary Nurse. nj1 16:51 Patient has correct armband on for positive identification. Bed in low position. Call ar1 light in reach. Side rails up X 1. Provided Education on: fall precautions, call light. 17:12 Richard Rawls MD is Attending Physician. cp 17:20 CT Head Brain wo Cont In Process Unspecified. EDMS 17:35 Inserted saline lock: 22 gauge in right antecubital area, using aseptic technique. nj1 Blood collected. 18:09 XRAY Chest (1 view) In Process Unspecified. EDMS 20:24 Urinalysis W/Microscopic Sent. 21:08 No provider procedures requiring assistance completed. IV discontinued, intact, kl bleeding controlled, No redness/swelling at site. Pressure dressing applied. Administered Medications: 17:40 Drug: Acetaminophen PO 1000 mg Route: PO; nj1 21:07 Follow up: Response: No adverse reaction 17:40 Drug: Meclizine PO 25 mg Route: PO; nj1 21:07 Follow up: Response: No adverse reaction; Marked relief of symptoms kl 18:19 Drug: Ketorolac IVP 15 mg Route: IVP; Site: right antecubital; nj1 21:07 Follow up: Response: No adverse reaction; Marked relief of symptoms kl 18:19 Drug: NS 0.9% IV 500 ml Route: IV; Rate: bolus; Site: right antecubital; nj1 20:28 Follow up: IV Status: Completed infusion; IV Intake: 500ml kl 18:20 Drug: metoCLOPramide IVP 10 mg Route: IVP; Site: right antecubital; nj1 21:07 Follow up: Response: No adverse reaction; Marked relief of symptoms kl 18:20 Drug: diphenhydrAMINE IVP 12.5 mg Route: IVP; Site: right antecubital; nj1 20:46 Drug: Rocephin IV 1 grams Route: IV; Rate: calculated rate; Site: right antecubital; kl 21:07 Follow up: Response: No adverse reaction kl Medication: 21:08 VIS not applicable for this client. kl Intake: 20:28 IV: 500ml; Total: 500ml. Outcome: 21:00 Discharge ordered by . cp 21:08 Discharged to home ambulatory. 21:08 Condition: improved 21:08 Discharge instructions given to patient, Instructed on discharge instructions, follow up and referral plans. medication usage, Demonstrated understanding of instructions, follow-up care, medications, Prescriptions given X 3. 21:08 Patient left the ED. Signatures: Dispatcher [employer] EDMS Rosalia De Luna RN RN kl Page, Corey, PA PA cp Garcia, Rubi rg4 Meagan Lepe RN RN nj1 Misty Johnson RN RN cm10 Corrections: (The following items were deleted from the chart) 16 16:41 PMHx: Diabetes - NIDDM; cm10 10 16: 16:42 General: Appears cm10 cm10 16:45 16:37 Chief complaint: Patient states: Headaches, fever, body aches since yesterday. cm10 Have been taking ibuprofen for fever, helps with headache. Took ibuprofen last at about 3pm. cm10
[2022-12-05 21:37] VITALS: BP 128/81; TEMP 98; O2SAT 98
--- NOTE | 2022-12-06 13:57 | EKG ---
Test Date: 2022-12-05 Test Time: 17:27:16 [employer]ardous Materials Handler: DAVID MEASUREMENT RESULTS: Intervals: Rate: 74 GA: 172 QRSD: 82 QT: 392 QTc: 435 [place]: P: 26 GA: 172 QRS: 21 T: 43 INTERPRETIVE STATEMENTS: Normal sinus rhythm Low voltage QRS Borderline ECG Compared to ECG 06/26/2016 16:13:56 Low QRS voltage now present Left bundle-branch block no longer present Electronically Signed On 12-06-22 13:55:25 CDT by Renato Miller
== END 2022-12-05 21:08 | disposition home or self-care (01) ==
LOC: ER 16:16
DX: R51.9 Headache, unspecified (principal); N39.0 Urinary tract infection, site not specified; Z20.822 Contact with and (suspected) exposure to COVID-19; I10 Essential (primary) hypertension
CPT/HCPCS: 96361; 93005; 85025; 81001; 80048; 36415; 83735; 84484; 87635; 87804 ×2; 70450; 71045; 96375; 96374; 99284; J8597; J2765; J1200; J7040; J0696

== ENCOUNTER 2023-03-29 20:11 | Emergency (ER) | payer OTHER ==
--- OUTSIDE RECORDS SUMMARY | 2023-03-29 20:15 | XMS REPORT | Continuity of Care Document ---
Author Name Unknown Address [address] [place] [place] [address] [facility] Address [address] [place] [address] Care Team Providers Care Script Editor Name Role Phone Christian REYES, Ambrose High Primary Care Physician [phone] Luke Jamison Attending Clinician Unavailable Ambrose Atkins Attending Clinician Unavailable TANIA ALARCON Attending Clinician Unavailable ROSALES PEREZ Attending Clinician Unavail able ROSALES PEREZ Attending Clinician Unavail able Doctor Unassigned, [place] Attending Clinician U navailable RADIOLOGY Attending Clinician Unavailable TANIA ALARCON Attending Clinician Unavail able Christiane BAUER, Kobe Attending Clinician Unavailab le Lab, Adc Fam Pob I Attending Clinician Unavailab le Unknown, Attending Attending Clinician Unavailab le UNKNOWN, ATTENDING Attending Clinician Unavailab nela Berry RN, Precious Attending Clinician Unavailable Vidya Lee Attending Clinician [phone] VIDYA JOHNSON Attending Clinician Unavailable TANIA ALARCON Admitting Clinician Unavail able Payers Payer Name Policy Type Policy Number Effective Date Expirati on Date Source [place] STAR+[id number] [id number] 2016 00:00:00 [facility] DUAL COMP HMO D SNP [id number] 2022 00:00:00 [facility] MEDICAID [id number] 2016 00:00:00 Problems Condition Name Condition Details Condition Category Status Onset Date Resolution Date Last Treatment Date Treating Clinician Comments Source [id number] Mixed hyperlipid emia Problem Active [facility] [id number] Depression with anxiety Problem Active [facility] [id number] Hyperglyce artie Problem Active [facility] [id number] Seasonal allergic rhinitis, unspecifie d trigger Problem Active [facility] [id number] Primary insomnia Problem Active [facility] [id number] Muscle strain Problem Active [facility] [id number] Gastroesop hageal reflux disease without esophagiti s Problem Active [facility] 61326303 Essential hypertensi on Problem Active [facility] [id number] Acute pain of right hip Problem Active [facility] [id number] Diabetes 1.5, managed as type 2 Problem Active [facility] [id number] Body mass index (BMI) of 40.0-44.9 in adult Problem Active [facility] [id number] 39110 Primary osteoarthr itis of right knee Problem Active [facility] [id number] 85623 Primary osteoarthr itis of left knee Problem Active [facility] Allergies, Adverse Reactions, Alerts Allergy Name Allergy Type Status Severity Reaction(s) Onset Date Inactive Date Treating Clinician Comments Source NO KNOWN ALLERGIE S Drug Class Active [facility] Social History Social Habit Start Date Stop Date Quantity Comments Source History of Tobacco Use [facility] Sex Assigned At [facility] Gender identity [facility] Sexual orientation U [facility] Exposure to SARS-CoV-2 (event) 2020-03-25 00:00:00 2020-04-24 16:55:00 Not sure [facility] Smoking Status Start Date Stop Date Source Tobacco smoking consumption unknown [facility] Former Smoker 2021-11-15 00:00:00 2021-11-15 00:00:00 [facility] Medications Ordered Medication Name Filled Medication Name Start Date Stop Date Current Medication? Ordering Clinician Indication Dosage Frequency Signature (SIG) Comments Components Source Ketorolac 15mg Ketorolac 15mg 12-09 00:00: 00 No 60mg [facility] Ketorolac 15mg Ketorolac 15mg 12-09 00:00: 00 No 60mg [facility] Methocarbam ol Methocarbam ol 12-09 00:00: 00 12-16 00:00 :00 No Romy Loyola 1 tablet [facility] Claritin Claritin 07-07 00:00: 00 01-03 00:00 :00 No Romy Loyola 1 tablet [facility] HydrOXYzine HCl HydrOXYzine HCl 12-16 00:00: 00 Yes Romy Loyola 1 tablet as needed [facility] hydrOXYzine HCl 50 MG hydrOXYzine HCl 50 MG 12-16 00:00: 00 No 1{table t_as_ne eded} QID hydrOXYzin e HCl 50 MG hydrOXYzine HCl 50 MG hydrOXYzine HCl 50 MG 12-16 00:00: 00 No 1{table t_as_ne eded} QID hydrOXYzin e HCl 50 MG Toradol (Ketorolac) Toradol (Ketorolac) 10-15 00:00: 00 No 60mg [facility] Toradol (Ketorolac) Toradol (Ketorolac) 10-15 00:00: 00 No 60mg [facility] Fluticasone Propionate Fluticasone Propionate 10-07 00:00: 00 Yes Romy Loyola 1 spray in each nostril [facility] Esomeprazol e Magnesium Esomeprazol e Magnesium Yes Romy Loyola 1 tablet [facility] Lopid Lopid Yes Romy Loyola TAKE ONE TABLET BY MOUTH TWICE A DAY [facility] Aspirin Aspirin Yes Roym Loyola 1 tablet [facility] Trazodone HCl Trazodone HCl Yes Romy Loyola 1 tablet at bedtime as needed [facility] Coreg Coreg Yes Romy Loyola TAKE ONE TABLET BY MOUTH TWICE A DAY [facility] Pyridium Pyridium Yes Romy Loyola 1 tablet after meals [facility] Lipitor Lipitor Yes Romy Loyola TAKE ONE TABLET BY MOUTH EVERY NIGHT AT BEDTIME [facility] Carvedilol Carvedilol Yes Romy Loyola bid [facility] Lexapro Lexapro Yes Romy Loyola TAKE ONE TABLET BY MOUTH DAILY [facility] Metformin HCl Metformin HCl Yes Romy Loyola 1 tablet with a meal [facility] Esomeprazol e Magnesium Esomeprazol e Magnesium Yes Romy Loyola TAKE ONE CAPSULE BY MOUTH DAILY [facility] Victoza Victoza Yes Romy Loyola not defined [facility] Lexapro 20 MG Lexapro 20 MG No Lexapro 20 MG Coreg 12.5 MG Coreg 12.5 MG No Coreg 12.5 MG Esomeprazol e Magnesium 20 MG Esomeprazol e Magnesium 20 MG No 1{table t} QD Esomeprazo le Magnesium 20 MG Esomeprazol e Magnesium 20 MG Esomeprazol e Magnesium 20 MG No Esomeprazo le Magnesium 20 MG Victoza Victoza No Victoza Lipitor 20 MG Lipitor 20 MG No Lipitor 20 MG Pyridium 200 MG Pyridium 200 MG No 1{table t_after _meals} TID Pyridium 200 MG Lopid 600 MG Lopid 600 MG No Lopid 600 MG metFORMIN HCl 850 MG metFORMIN HCl 850 MG No 1{table t_with_ a_meal} metFORMIN HCl 850 MG traZODone HCl 50 MG traZODone HCl 50 MG No 1{table t_at_be dtime_a s_neede d} QD traZODone HCl 50 MG Fluticasone Propionate 50 MCG/ACT Fluticasone Propionate 50 MCG/ACT No 1{spray _in_eac h_nostr il} QD Fluticason e Propionate 50 MCG/ACT NexIUM 40 MG NexIUM 40 MG No NexIUM 40 MG Aspirin 81 MG Aspirin 81 MG No 1{table t} QD Aspirin 81 MG Carvedilol 25 MG Carvedilol 25 MG No BID Carvedilol 25 MG Carvedilol 25 MG Carvedilol 25 MG No BID Carvedilol 25 MG Lexapro 20 MG Lexapro 20 MG No Lexapro 20 MG Lipitor 20 MG Lipitor 20 MG No Lipitor 20 MG Coreg 12.5 MG Coreg 12.5 MG No Coreg 12.5 MG metFORMIN HCl 850 MG metFORMIN HCl 850 MG No 1{table t_with_ a_meal} metFORMIN HCl 850 MG Esomeprazol e Magnesium 20 MG Esomeprazol e Magnesium 20 MG No 1{table t} QD Esomeprazo le Magnesium 20 MG Paxil Paxil No Paxil Fluticasone Propionate 50 MCG/ACT Fluticasone Propionate 50 MCG/ACT No 1{spray _in_eac h_nostr il} QD Fluticason e Propionate 50 MCG/ACT Victoza Victoza No Victoza Lopid 600 MG Lopid 600 MG No Lopid 600 MG Esomeprazol e Magnesium 20 MG Esomeprazol e Magnesium 20 MG No Esomeprazo le Magnesium 20 MG traZODone HCl 50 MG traZODone HCl 50 MG No 1{table t_at_be dtime_a s_neede d} QD traZODone HCl 50 MG NexIUM 40 MG NexIUM 40 MG No NexIUM 40 MG Aspirin 81 MG Aspirin 81 MG No 1{table t} QD Aspirin 81 MG Pyridium 200 MG Pyridium 200 MG No 1{table t_after _meals} TID Pyridium 200 MG Farxiga Timcandacega 01-03 00:00 :00 No Romy Loyola 1 Common [facility] Vital Signs Vital Name Observation Time Observation Value Comments S ruddy height 2021-11-15 13:30:00 59 [in_i] Commo n [facility] weight 2021-11-15 13:30:00 166 [lb_av] Comm on [facility] bmi 2021-11-15 13:30:00 33.52 kg/m2 Comm on [facility] blood pressure systolic 2021-11-15 13:30:00 130 mm[Hg] [facility] blood pressure diastolic 2021-11-15 13:30:00 82 mm[Hg] [facility] Procedures Procedure Date / Time Performed Performing Clinicia n Source REFERRAL- REQUEST/RESPONSE 2022-12-12 05:01:00 Doctor Unassigned, [place] [facility] Encounters Start Date/Time End Date/Time Encounter Type Admission Type Attending [facility] Care Facility Care Department Encounter ID Source 2021-11-23 15:42:01 Outpatient JamisonLuke [facility] [id number] [facility] 2021-11-16 09:32:00 Outpatient Luke Jamison [facility] [id number] [facility] 2021-11-15 13:19:01 Outpatient JamisonLuke [facility] [id number] [facility] 2021-11-08 08:46:00 Outpatient Ambrose Atkins [facility] [id number] [facility] 2021-10-10 16:31:00 Outpatient Ambrose Atkins [facility] [id number] [facility] 2021-09-13 09:44:00 Outpatient Ambrose Atkins [facility] [id number] [facility] 2020-09-07 14:24:41 Outpatient DORIAN TANIA [facility] [id number] [facility] 2023-01-10 09:20:00 2023-01-10 09:20:00 Outpatient ROSALES FRAZIER HOWARD [facility] [id number] [facility] 2022-12-12 00:00:00 2022-12-12 00:00:00 Orders Only Doctor Unassigned, [place] [facility] [id number] [facility] 2021-11-15 00:00:00 2021-11-15 00:00:00 OFFICE VISIT NEW PT LEVEL 4 STLMLC [facility] [id number] [facility] 2021-09-13 00:00:00 2021-09-13 00:00:00 (TEL) [facility] [id number] [facility] 2020-05-11 00:00:00 2020-05-11 00:00:00 Outpatient R RADIOLOGY [facility] [id number] [facility] 2020-01-21 05:17:00 2020-01-23 11:30:00 Inpatient TANIA ALARCONSE MELO [id number] [facility] 2019-11-05 00:00:00 2019-11-05 00:00:00 [facility] [id number] [id number] [id number] [id number] 2019-11-05 00:00:00 2019-11-05 00:00:00 Telephone [facility] [id number] 4.2.7.2.686 [id number] [facility] 2019-11-05 00:00:00 2019-11-05 00:00:00 Patient Secure Msg Doctor Unassigned, [place] [facility] [id number] 350.1.13.10 4.2.7.2.686 [id number] [facility] 2019-11-03 00:00:00 2019-11-03 00:00:00 Patient Secure Msg Doctor Unassigned, [place] [facility] [id number] [id number] [id number] [facility] 2019-11-01 13:27:22 2019-11-01 13:47:22 Laboratory Only Lab, [facility] Fam Pob I [facility] [id number] 2019-11-01 13:27:22 2019-11-01 13:47:22 Laboratory Only Lab, [facility] Fam Pob I Unknown, Attending [facility] [id number] [facility] 2019-11-01 13:20:00 2019-11-01 13:20:00 Outpatient R UNKNOWN, ATTENDING [facility] [id number] [facility] 2019-10-17 00:00:00 2019-10-17 00:00:00 Telephone [facility] [id number] 4.2.7.2.686 [id number] 2019-10-17 00:00:00 2019-10-17 00:00:00 Telephone [facility] [id number] [id number] 4.2.7.2.686 [id number] [facility] 2019-10-15 11:46:21 2019-10-15 12:06:21 Laboratory Only Lab, Adc Fam Pob I [facility] [id number] [id number] [id number] [id number] 2019-10-15 11:46:21 2019-10-15 12:06:21 Laboratory Only Lab, [facility] Fam Pob I Vidya Johnson [facility] [id number] [id number] [id number] [id number] [facility] 2019-10-15 11:40:00 2019-10-15 11:40:00 Outpatient VIDYA NI [facility] [id number] [facility] 2019-02-22 14:43:00 2019-02-22 14:43:00 Outpatient zzzAmy Schochler DO zzzAmy Schochler DO [id number] [facility] 2018-12-09 17:30:00 2018-12-09 17:30:00 [facility] [id number] [facility] 2018-07-07 11:30:00 2018-07-07 11:30:[address] [facility] [id number] [facility] 2018-06-23 11:00:00 2018-06-23 11:00:[address] [facility] [id number] [facility] 2018-01-22 09:00:00 2018-01-22 09:00:00 [facility] [id number] [facility] 2017-12-29 15:51:00 2017-12-29 15:51:00 [facility] [id number] [facility] 2017-12-16 09:15:00 2017-12-16 09:15:[address] [facility] [id number] [facility] 2017-10-15 16:15:00 2017-10-15 16:15:00 [facility] [id number] [facility] 2017-10-13 14:45:00 2017-10-13 14:45:[address] [facility] [facility] [id number] [facility] 2017-10-07 13:00:00 2017-10-07 13:00:[address] [facility] [id number] [facility]
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
[2023-03-29] MEDS ORDERED: DIAZEPAM 5 MG TABLET ONE (21:09)
[2023-03-29 21:11] VITALS: BP 129/93; TEMP 98; O2SAT 100
== END 2023-03-29 21:06 | disposition home or self-care (01) ==
LOC: ER 20:11
DX: T14.90XA Injury, unspecified, initial encounter (principal); M54.9 Dorsalgia, unspecified; V49.9XXA Car occupant (driver) (passenger) injured in unspecified traffic accident, initial encounter; Y92.410 Unspecified street and highway as the place of occurrence of the external cause; I10 Essential (primary) hypertension
CPT/HCPCS: 99283

== ENCOUNTER → 2023-06-25 | Emergency (ER) | payer OTHER ==
--- OUTSIDE RECORDS SUMMARY | 2023-06-25 13:00 | XMS REPORT | Continuity of Care Document ---
Author Name Unknown Address [address] [place] [place] [address] [facility] thconnect Address [address] [place] [place] [address] Care Team Providers Care Facility Operations Manager Name Role Phone Ambrose Gonzales MD Primary Care Physician Luke Jamison Attending Clinician Unavailable Ambrose Atkins Attending Clinician Unavailable TANIA ALARCON Attending Clinician Unavailable ROSALES PEREZ Attending Clinician Unavail able ROSALES PEREZ Attending Clinician Unavail able Doctor Unassigned, [place] Attending Clinician U navailable RADIOLOGY Attending Clinician Unavailable Kobe Grande RN Attending Clinician Unavailab le Lab, Adc Fam Pob I Attending Clinician Unavailab le Unknown, Attending Attending Clinician Unavailab le UNKNOWN, ATTENDING Attending Clinician Unavailab Precious Lagos RN Attending Clinician Unavailable Vidya Lee Attending Clinician VIDYA ALFARO Attending Clinician Unavailable Payers Payer Name Policy Type Policy Number Effective Date Expirati on Date Source [place] ST[place]PLUS [id number] 2016 00:00:00 [facility] DUAL COMP HMO D SNP [id number] 2022 00:00:00 [employer] [id number] 2016 00:00:00 Problems Condition Name Condition Details Condition Category Status Onset Date Resolution Date Last Treatment Date Treating Clinician Comments Source [id number] Mixed hyperlipid emia Problem Active [facility] [id number] Depression with anxiety Problem Active [facility] [id number] Hyperglyce artie Problem Active [facility] [id number] Seasonal allergic rhinitis, unspecifie d trigger Problem Active [facility] [id number] Primary insomnia Problem Active [facility] [id number] Muscle strain Problem Active [facility] [id number] Gastroesop hageal reflux disease without esophagiti s Problem Active [facility] [id number] Essential hypertensi on Problem Active [facility] [id number] Acute pain of right hip Problem Active [facility] [id number] Diabetes 1.5, managed as type 2 Problem Active [facility] [id number] Body mass index (BMI) of 40.0-44.9 in adult Problem Active [facility] [id number] Primary osteoarthr itis of right knee Problem Active [facility] [id number] Primary osteoarthr itis of left knee Problem Active [facility] Allergies, Adverse Reactions, Alerts Allergy Name Allergy Type Status Severity Reaction(s) Onset Date Inactive Date Treating Clinician Comments Source NO KNOWN ALLERGIE S Drug Class Active [facility] Social History Social Habit Start Date Stop Date Quantity Comments Source History of Tobacco Use [facility] Sex Assigned At [facility] Gender identity [facility] Sexual orientation U [facility] Exposure to SARS-CoV-2 (event) 2020-03-25 00:00:00 2020-04-24 16:55:00 Not sure [facility] Smoking Status Start Date Stop Date Source Tobacco smoking consumption unknown [facility] Former Smoker 2021-11-15 00:00:00 2021-11-15 00:00:00 [facility] Medications Ordered Medication Name Filled Medication Name Start Date Stop Date Current Medication? Ordering Clinician Indication Dosage Frequency Signature (SIG) Comments Components Source Ketorolac 15mg Ketorolac 15mg 12-09 00:00: 00 No 60mg [facility] Ketorolac 15mg Ketorolac 15mg 12-09 00:00: 00 No 60mg [facility] Methocarbam ol Methocarbam ol 12-09 00:00: 00 12-16 00:00 :00 No Romy Loyola 1 tablet [facility] Claritin Claritin 07-07 00:00: 00 01-03 00:00 :00 No Romy Loyola 1 tablet [facility] HydrOXYzine HCl HydrOXYzine HCl 12-16 00:00: 00 Yes Romy Loyola 1 tablet as needed [facility] hydrOXYzine HCl 50 MG hydrOXYzine HCl 50 MG 12-16 00:00: 00 No 1{table t_as_ne eded} QID hydrOXYzin e HCl 50 MG hydrOXYzine HCl 50 MG hydrOXYzine HCl 50 MG 12-16 00:00: 00 No 1{table t_as_ne eded} QID hydrOXYzin e HCl 50 MG Toradol (Ketorolac) Toradol (Ketorolac) 10-15 00:00: 00 No 60mg [facility] Toradol (Ketorolac) Toradol (Ketorolac) 10-15 00:00: 00 No 60mg [facility] Fluticasone Propionate Fluticasone Propionate 10-07 00:00: 00 Yes Romy Loyola 1 spray in each nostril [facility] Trazodone HCl Trazodone HCl Yes Romy Loyola 1 tablet at bedtime as needed [facility] Coreg Coreg Yes Romy Loyola TAKE ONE TABLET BY MOUTH TWICE A DAY [facility] Pyridium Pyridium Yes Romy Loyola 1 tablet after meals [facility] Lipitor Lipitor Yes Romy Loyola TAKE ONE TABLET BY MOUTH EVERY NIGHT AT BEDTIME [facility] Carvedilol Carvedilol Yes Romy Loyola bid [facility] Lexapro Lexapro Yes Romy Loyola TAKE ONE TABLET BY MOUTH DAILY [facility] Metformin HCl Metformin HCl Yes Romy Loyola 1 tablet with a meal [facility] Esomeprazol e Magnesium Esomeprazol e Magnesium Yes Romy Loyola TAKE ONE CAPSULE BY MOUTH DAILY [facility] Victoza Victoza Yes Romy Loyola not defined [facility] Lexapro 20 MG Lexapro 20 MG No [...] 1{table t_after _meals} TID Pyridium 200 MG Esomeprazol e Magnesium Esomeprazol e Magnesium Yes Romy Loyola 1 tablet [facility] Lopid Lopid Yes Romy Loyola TAKE ONE TABLET BY MOUTH TWICE A DAY [facility] Aspirin Aspirin Yes Romy Loyola 1 tablet [facility] 01-03 00:00 :00 No Romy Loyola 1 [facility] Vital Signs Vital Name Observation Time Observation Value Comments S ource height 2021-11-15 13:30:00 59 [in_i] Commo n [facility] weight 2021-11-15 13:30:00 166 [lb_av] Comm on [facility] bmi 2021-11-15 13:30:00 33.52 kg/m2 Comm on [facility] blood pressure systolic 2021-11-15 13:30:00 130 mm[Hg] [facility] blood pressure diastolic 2021-11-15 13:30:00 82 mm[Hg] [facility] Procedures Procedure Date / Time Performed Performing Clinicia n Source REFERRAL- REQUEST/RESPONSE 2022-12-12 05:01:00 Doctor Unassigned, [place] [facility] Encounters Start Date/Time End Date/Time Encounter Type Admission Type Attending [facility] Care Facility Care Department Encounter ID Source 2021-11-23 15:42:01 Outpatient [facility] [id number] [facility] 2021-11-16 09:32:00 Outpatient JamisonLuke [facility] [id number] [facility] 2021-11-15 13:19:01 Outpatient JamisonLuke [facility] [id number] [facility] 2021-11-08 08:46:00 Outpatient brianAmbrose [facility] [id number] [facility] 2021-10-10 16:31:00 Outpatient yazminAmbrose Sanderson [facility] [id number] [facility] 2021-09-13 09:44:00 Outpatient yazminAmbrose Sanderson [facility] [id number] [facility] 2020-09-07 14:24:41 Outpatient DORIAN TANIA [facility] [id number] [facility] 2023-01-10 09:20:00 2023-01-10 09:20:00 Outpatient ROSALES FRAZIER HOWARD [facility] [id number] [facility] 2022-12-12 00:00:00 2022-12-12 00:00:00 Orders Only Doctor Unassigned, [place] [facility] [id number] [facility] 2021-11-15 00:00:00 2021-11-15 00:00:00 OFFICE VISIT NEW PT LEVEL 4 [facility] [id number] [facility] 2021-09-13 00:00:00 2021-09-13 00:00:00 (TEL) [facility] [id number] [facility] 2020-05-11 00:00:00 2020-05-11 00:00:00 Outpatient R RADIOLOGY [facility] [id number] [facility] 2019-11-05 00:00:00 2019-11-05 00:00:00 [facility] [id number] 2019-11-05 00:00:00 2019-11-05 00:00:00 Telephone [facility] [id number] [facility] 2019-11-05 00:00:00 2019-11-05 00:00:00 Patient Secure Msg Doctor Unassigned, [place] [facility] [id number] [id number] [id number] [facility] 2019-11-03 00:00:00 2019-11-03 00:00:00 Patient Secure Msg Doctor Unassigned, [place] [facility] [id number] [id number] [id number] [facility] 2019-11-01 13:27:22 2019-11-01 13:47:22 Laboratory Only Lab, Adc Fam Pob I [facility] [id number] [id number] [id number] [id number] 2019-11-01 13:27:22 2019-11-01 13:47:22 Laboratory Only Lab, [facility] Fam Pob I Unknown, Attending [facility] [id number] [id number] [id number] [id number] [facility] 2019-11-01 13:20:00 2019-11-01 13:20:00 Outpatient R UNKNOWN, ATTENDING [facility] [id number] [facility] 2019-10-17 00:00:00 2019-10-17 00:00:00 Telephone [facility] [id number] 4.2.7.2.686 [id number] [facility] 2019-10-17 00:00:00 2019-10-17 00:00:00 Telephone [facility] [id number] [id number] 4.2.7.2.686 [id number] 2019-10-15 11:46:21 2019-10-15 12:06:21 Laboratory Only Lab, [facility] [id number] [id number] [id number] [id number] [facility] 2019-10-15 11:46:21 2019-10-15 12:06:21 Laboratory Only Lab, [facility] Fam Pob I [facility] [id number] 350.1.13.10 4.2.7.2.686 [id number] 2019-10-15 11:40:00 2019-10-15 11:40:00 Outpatient R VIDYA ALFARO [facility] [id number] [facility] 2019-02-22 14:43:00 2019-02-22 14:43:00 Outpatient Allie Larios [id number] [facility] 2018-12-09 17:30:00 2018-12-09 17:30:00 [facility] [id number] [facility] 2018-07-07 11:30:00 2018-07-07 11:30:[address] [facility] [id number] [facility] 2018-06-23 11:00:00 2018-06-23 11:00:[address] [facility] [id number] [facility] 2018-01-22 09:00:00 2018-01-22 09:00:[address] [facility] [id number] [facility] 2017-12-29 15:51:00 2017-12-29 15:51:[address] [facility] [id number] [facility] 2017-12-16 09:15:00 2017-12-16 09:15:[address] [facility] [id number] [facility] 2017-10-15 16:15:00 2017-10-15 16:15:00 [facility] [id number] [facility] 2017-10-13 14:45:00 2017-10-13 14:45:[address] [facility] [id number] [facility] 2017-10-07 13:00:00 2017-10-07 13:00:[address] [facility] [id number] [facility]
--- NOTE | 2023-06-25 13:18 | EDPHYS ---
Physician Documentation [facility] Name: Shirley San Age: 62 yrs Sex: Female : 1960 Arrival Date: 06/25/2023 Time: 12:55 Bed Waiting Private MD: ED Physician Miguel Brady HPI: 06/24 13:13 This 62 yrs old Female presents to ER via Unassigned with complaints of kb Stabbed with epi pen. 13:13 Pt is a 62 year old female who presents after getting stuck in the right thumb by an kb epi pen. States she was cleaning out a drawer at 0900 and the cap came off of the epi pen that was in there and stuck her in the pad of the right thumb. States she was checked out by EMS afterwards, but her family wanted her to come in to be evaluation. Denies palpitations. The pen did not inject. Historical: - Allergies: 13:43 No Known Allergies; bp - PMHx: 13:43 High Cholesterol; Hypertension; bp - PSHx: 13:43 Cholecystectomy; Weight loss surgery; bp - Immunization history:: Adult Immunizations up to date. - Social history:: Smoking status: Patient denies any tobacco usage or history of. ROS: 13:12 Constitutional: As per HPI kb 13:12 Skin: Positive for ecchymosis, puncture, of the palmar aspect of distal phalanx of right thumb, 13:12 All other systems are negative, Exam: 13:12 Constitutional: This is a well developed, well nourished patient who is awake, alert, kb and in no acute distress. Head/Face: Normocephalic, atraumatic. ENT: Moist Mucous membranes Cardiovascular: Regular rate Respiratory: Respirations even and unlabored. No increased work of breathing. Talking in full sentences MS/ Extremity: Pulses equal, no cyanosis. Neurovascular intact. Full, normal range of motion. Neuro: Awake and alert, GCS 15, oriented to person, place, time, and situation. Moves all extremities. Normal gait. 13:12 Skin: injury, puncture(s), that are superficial, of the palmar aspect of distal phalanx of right thumb, with surrounding ecchymosis, Vital Signs: 13:42 BP 154 / 75; Pulse 81; Resp 16; Temp 98; Pulse Ox 98% ; bp MDM: 13:03 Patient medically screened. kb 13:13 Differential diagnosis: puncture, contusion. Data reviewed: vital signs, nurses notes. kb Counseling: I had a detailed discussion with the patient and/or guardian regarding the historical points, exam findings, and any diagnostic results supporting the discharge/admit diagnosis, the need for outpatient follow up, a family practitioner, to return to the emergency department if symptoms worsen or persist or if there are any questions or concerns that arise at home. Administered Medications: No medications were administered Disposition: 13:25 I was immediately available on-site in the Emergency Department for consultation in the ms3 care of the patient. Disposition Summary: 06/25/23 13:17 Discharge Ordered Notes: Location: Home kb Condition: Stable kb Diagnosis - Puncture wound without foreign body of right thumb without damage to nail, initial kb encounter Followup: kb - With: Emergency Department - When: As needed - Reason: Worsening of condition Followup: kb - With: Private Physician - When: 2 - 3 days - Reason: Recheck today's complaints, Continuance of care, Re-evaluation by your physician Discharge Instructions: - Discharge Summary Sheet kb - Puncture Wound, [id number] kb Forms: - Medication Reconciliation Form kb - Thank You Letter kb - Antibiotic Education kb - Prescription Opioid Use kb - Patient Portal Instructions kb - Leadership Thank You Letter kb Signatures: Navya Parks FNP-C FNP-Ryan Bermudez, RN RN Miguel Maldonado DO DO ms3
--- NOTE | 2023-06-25 13:46 | ER ---
Nurse's Notes [facility] Name: Shirley San Age: 62 yrs Sex: Female : 1960 Arrival Date: 06/25/2023 Time: 12:55 Bed Waiting Private MD: Diagnosis: Puncture wound without foreign body of right thumb without damage to nail, initial encounter Presentation: 06/24 13:42 Chief complaint: Patient states: ACCIDENTAL PUNCTURE WOUND WITH EPI PEN AT 0900. bp Coronavirus screen: At this time, the client does not indicate any symptoms associated with coronavirus-19. Ebola Screen: No symptoms or risks identified at this time. Initial Sepsis Screen: Does the patient meet any 2 criteria? No. Patient's initial sepsis screen is negative. Does the patient have a suspected source of infection? No. Patient's initial sepsis screen is negative. Risk Assessment: Do you want to hurt yourself or someone else? Patient reports no desire to harm self or others. Onset of symptoms was June 25, 2023 at 09:00. 13:42 Method Of Arrival: Ambulatory bp 13:42 Acuity: SAÚL 5 bp Triage Assessment: 13:43 General: Appears in no apparent distress. Behavior is calm, cooperative, appropriate bp for age. Pain: Complains of pain in palmar aspect of distal phalanx of right thumb. Historical: - Allergies: 13:43 No Known Allergies; bp - PMHx: 13:43 High Cholesterol; Hypertension; bp - PSHx: 13:43 Cholecystectomy; Weight loss surgery; bp - Immunization history:: Adult Immunizations up to date. - Social history:: Smoking status: Patient denies any tobacco usage or history of. Screenin:[address] [facility] ED Fall Risk Assessment (Adult) History of falling in the last 3 months, bp including since admission No falls in past 3 months (0 pts). Abuse screen: Denies threats or abuse. Denies injuries from another. Nutritional screening: No deficits noted. Tuberculosis screening: No symptoms or risk factors identified. Assessment: 13:43 Reassessment: DC HOME AMBULATORY. bp Vital Signs: 13:42 BP 154 / 75; Pulse 81; Resp 16; Temp 98; Pulse Ox 98% ; bp ED Course: 12:58 Patient arrived in ED. im 12:59 Navya Parks FNP-C is PHCP. kb 12:59 Brady, Miguel, DO is Attending Physician. kb 13:42 Ryan Mcduffie, RN is Primary Nurse. bp 13:43 Triage completed. bp 13:43 Arm band placed on. bp 13:43 Patient has correct armband on for positive identification. bp 13:43 No provider procedures requiring assistance completed. Patient did not have IV access bp during this emergency room visit. Administered Medications: No medications were administered Medication: 13:43 VIS not applicable for this client. bp Outcome: 13:17 Discharge ordered by MD. kb 13:43 Discharged to home ambulatory, bp 13:43 Condition: stable 13:43 Discharge instructions given to patient, Instructed on discharge instructions, follow up and referral plans. Demonstrated understanding of instructions, follow-up care, 13:45 Patient left the ED. bp Signatures: Navya Parks, STAMPS OR COINS SALESPERSON-C STAMPS OR COINS SALESPERSON-Ckb Ryan Mcduffie, RN RN bp Velma Santos
[2023-06-25 14:14] VITALS: BP 154/75; TEMP 98; O2SAT 98
== END ==
LOC: ER 12:55
DX: S61.031A Puncture wound without foreign body of right thumb without damage to nail, initial encounter (principal)
CPT/HCPCS: 99282

== ENCOUNTER 2023-07-20 14:22 | Observation (INO) | payer OTHER ==
--- OUTSIDE RECORDS SUMMARY | 2023-07-20 14:26 | XMS REPORT | Continuity of Care Document ---
Author Name Unknown Address [address] [place] [place] [address] [facility] thconnect Address [address] [place] [place] [address] Care Team Providers Care Flap Maker Name Role Phone Ambrose Gonzales MD Primary Care Physician [phone] Luke Jamison Attending Clinician Unavailable Ambrose Atkins Attending Clinician Unavailable TANIA ALARCON Attending Clinician Unavailable ROSALES PEREZ Attending Clinician Unavail able ROSALES PEREZ Attending Clinician Unavail able Doctor Unassigned, Spicer Attending Clinician U navailable RADIOLOGY Attending Clinician Unavailable Kobe Grande RN Attending Clinician Unavailab le Lab, Adc Fam Pob I Attending Clinician Unavailab le Unknown, Attending Attending Clinician Unavailab le UNKNOWN, ATTENDING Attending Clinician Unavailab Precious Lagos RN Attending Clinician Unavailable Vidya Lee Attending Clinician [phone] VIDYA ALFARO Attending Clinician Unavailable Payers Payer Name Policy Type Policy Number Effective Date Expirati on Date Source [place] STAR[place]PLUS [id number] 2016 00:00:00 [facility] DUAL COMP HMO D SNP [id number] 2022 00:00:00 [employer] MED[employer] [id number] 2016 00:00:00 Problems Condition Name Condition Details Condition Category Status Onset Date Resolution Date Last Treatment Date Treating Clinician Comments Source [id number] Mixed hyperlipid emia Problem Active [facility] [id number] Depression with anxiety Problem Active [facility] [id number] Hyperglyce artie Problem Active [facility] [id number] Seasonal allergic rhinitis, unspecifie d trigger Problem Active [facility] [id number] Primary insomnia Problem Active [facility] [id number] Muscle strain Problem Active [facility] [id number] Gastroesop hageal reflux disease without esophagiti s Problem Active [facility] [id number] Essential hypertensi on Problem Active [facility] 56277497 Acute pain of right hip Problem Active [facility] [id number] Diabetes 1.5, managed as type 2 Problem Active [facility] [id number] Body mass index (BMI) of 40.0-44.9 in adult Problem Active [facility] [id number] Primary osteoarthr itis of right knee Problem Active [facility] [id number] Primary osteoarthr itis of left knee Problem Active [facility] Allergies, Adverse Reactions, Alerts Allergy Name Allergy Type Status Severity Reaction(s) Onset Date Inactive Date Treating Clinician Comments Source NO KNOWN ALLERGIE S Drug Class Active [facility] Social History Social Habit Start Date Stop Date Quantity Comments Source History of Tobacco Use [facility] Sex Assigned At [facility] Gender identity [facility] Sexual orientation U [facility] Exposure to SARS-CoV-2 (event) 2020-03-25 00:00:00 2020-04-24 16:55:00 Not sure [facility] Smoking Status Start Date Stop Date Source Tobacco smoking consumption unknown [facility] Former Smoker 2021-11-15 00:00:00 2021-11-15 00:00:00 [facility] Medications Ordered Medication Name Filled Medication Name Start Date Stop Date Current Medication? Ordering Clinician Indication Dosage Frequency Signature (SIG) Comments Components Source Ketorolac 15mg Ketorolac 15mg 12-09 00:00: 00 No 60mg [facility] Ketorolac 15mg Ketorolac 15mg 12-09 00:00: 00 No 60mg [facility] Methocarbam ol Methocarbam ol 12-09 00:00: 00 12-16 00:00 :00 No Romy Loyola 1 tablet [facility] Claritin Claritin 07-07 00:00: 00 01-03 00:00 :00 No Romy Loyola 1 tablet [facility] HydrOXYzine HCl HydrOXYzine HCl 12-16 00:00: 00 Yes Romy Loyola 1 tablet as needed [facility] hydrOXYzine HCl 50 MG hydrOXYzine HCl 50 MG 12-16 00:00: 00 No 1{table t_as_ne eded} QID hydrOXYzin e HCl 50 MG hydrOXYzine HCl 50 MG hydrOXYzine HCl 50 MG 12-16 00:00: 00 No 1{table t_as_ne eded} QID hydrOXYzin e HCl 50 MG Toradol (Ketorolac) Toradol (Ketorolac) 10-15 00:00: 00 No 60mg [facility] Toradol (Ketorolac) Toradol (Ketorolac) 10-15 00:00: 00 No 60mg [facility] Fluticasone Propionate Fluticasone Propionate 10-07 00:00: 00 Yes Romy Loyola 1 spray in each nostril [facility] Trazodone HCl Trazodone HCl Yes Romy Loyola 1 tablet at bedtime as needed [facility] Coreg Coreg Yes Romy Loyola TAKE ONE TABLET BY MOUTH TWICE A DAY [facility] Pyridium Pyridium Yes Romy Loyola 1 tablet after meals [facility] Lipitor Lipitor Yes Romy Loyola TAKE ONE TABLET BY MOUTH EVERY NIGHT AT BEDTIME [facility] Carvedilol Carvedilol Yes Romy Loyola bid [facility] Lexapro Lexapro Yes Romy Loyola TAKE ONE TABLET BY MOUTH DAILY [facility] Metformin HCl Metformin HCl Yes Romy Loyola 1 tablet with a meal [facility] Esomeprazol e Magnesium Esomeprazol e Magnesium Yes Romy Loyola TAKE ONE CAPSULE BY MOUTH DAILY [facility] Victoza Victoza Yes Romy Loyola not defined [facility] Lexapro 20 MG Lexapro 20 MG No [...] e Magnesium Yes Romy Loyola 1 tablet [facility] Lopid Lopid Yes Romy Loyola TAKE ONE TABLET BY MOUTH TWICE A DAY [facility] Aspirin Aspirin Yes Romy Loyola 1 tablet [facility] 01-03 00:00 :00 No Romy Loyola 1 [facility] Vital Signs Vital Name Observation Time Observation Value Comments S ource height 2021-11-15 13:30:00 59 [in_i] Commo n [facility] weight 2021-11-15 13:30:00 166 [lb_av] Comm on [facility] bmi 2021-11-15 13:30:00 33.52 kg/m2 Comm on [facility] blood pressure systolic 2021-11-15 13:30:00 130 mm[Hg] [facility] blood pressure diastolic 2021-11-15 13:30:00 82 mm[Hg] [facility] Procedures Procedure Date / Time Performed Performing Clinicia n Source REFERRAL- REQUEST/RESPONSE 2022-12-12 05:01:00 Doctor Unassigned, Spicer [facility] Encounters Start Date/Time End Date/Time Encounter Type Admission Type Attending [facility] Care Facility Care Department Encounter ID Source 2021-11-23 15:42:01 [facility] [id number] [facility] 2021-11-16 09:32:00 Outpatient JamisonLuke [facility] [id number] [facility] 2021-11-15 13:19:01 [facility] [id number] [facility] 2021-11-08 08:46:00 Outpatient brianAmbrose Gonzales [facility] [id number] [facility] 2021-10-10 16:31:00 Outpatient yazminAmbrose Sanderson [facility] [id number] [facility] 2021-09-13 09:44:00 Outpatient yazminAmbrose Sanderson [facility] [id number] [facility] 2020-09-07 14:24:41 Outpatient DORIAN TANIA [facility] [id number] [facility] 2023-01-10 09:20:00 2023-01-10 09:20:00 Outpatient ROSALES FRAZIER HOW[facility] [id number] [facility] 2022-12-12 00:00:00 2022-12-12 00:00:00 Orders Only Doctor Unassigned, Spicer [facility] [id number] [facility] 2021-11-15 00:00:00 2021-11-15 00:00:00 OFFICE VISIT NEW PT LEVEL 4 STLMLC [facility] [id number] [facility] 2021-09-13 00:00:00 2021-09-13 00:00:00 (TEL) STLMLC [facility] [id number] [facility] 2020-05-11 00:00:00 2020-05-11 00:00:00 Outpatient R RADIOLOGY [facility] [id number] [facility] 2019-11-05 00:00:00 2019-11-05 00:00:[facility] [id number] 2019-11-05 00:00:00 2019-11-05 00:00:00 Telephone [facility] [id number] [facility] 2019-11-05 00:00:00 2019-11-05 00:00:00 Patient Secure Msg Doctor Unassigned, Spicer [facility] [id number] [facility] 2019-11-03 00:00:00 2019-11-03 00:00:00 Patient Secure Msg Doctor Unassigned, Spicer [facility] [id number] [facility] 2019-11-01 13:27:22 2019-11-01 13:47:22 Laboratory Only Lab, Adc Fam Pob I [facility] [id number] 2019-11-01 13:27:22 2019-11-01 13:47:22 Laboratory Only Lab, [facility] Fam Pob I Unknown, Attending [facility] [id number] [id number] [id number] [facility] 2019-11-01 13:20:00 2019-11-01 13:20:00 Outpatient R UNKNOWN, ATTENDING [facility] [id number] [facility] 2019-10-17 00:00:00 2019-10-17 00:00:00 Telephone [facility] [id number] [id number] [id number] [facility] 2019-10-17 00:00:00 2019-10-17 00:00:00 Telephone [facility] [id number] 4.2.7.2.686 [id number] 2019-10-15 11:46:21 2019-10-15 12:06:21 Laboratory Only Lab, [facility] [id number] [id number] 4.2.7.2.686 [id number] [facility] 2019-10-15 11:46:21 2019-10-15 12:06:21 Laboratory Only Lab, [facility] Fam Pob I [facility] 1.0.114 350.1.13.10 4.2.7.2.686 [id number] 2019-10-15 11:40:00 2019-10-15 11:40:00 Outpatient R VIDYA ALFARO [facility] [id number] [facility] 2019-02-22 14:43:00 2019-02-22 14:43:00 Outpatient Allie Larios [id number] [facility] 2018-12-09 17:30:00 2018-12-09 17:30:00 [facility] [id number] [facility] 2018-07-07 11:30:00 2018-07-07 11:30:[address] [facility] [id number] [facility] 2018-06-23 11:00:00 2018-06-23 11:00:[address] [facility] [id number] [facility] 2018-01-22 09:00:00 2018-01-22 09:00:[address] [facility] [id number] [facility] 2017-12-29 15:51:00 2017-12-29 15:51:[address] [facility] [id number] [facility] 2017-12-16 09:15:00 2017-12-16 09:15:[address] [facility] [id number] [facility] 2017-10-15 16:15:00 2017-10-15 16:15:00 [facility] [id number] [facility] 2017-10-13 14:45:00 2017-10-13 14:45:[address] [facility] [id number] [facility] 2017-10-07 13:00:00 2017-10-07 13:00:[address] [facility] [id number] [facility]
[2023-07-20] MEDS ORDERED: ASPIRIN 325 MG TAB ONE (14:59)
[2023-07-20 15:02] LABS: Albumin 3.8 g/dL (3.4-5.0); Albumin/Globulin Ratio 1.1 (1.1-1.8); Anion Gap 9.2 mEq/L (5.0-15.0); Bilirubin Direct 0.3 mg/dL (0-0.2); Bilirubin Indirect, Calculated 0.4 mg/dL (0.2-0.8); Bilirubin Total 0.7 mg/dL (0.2-1.0); Globulin 3.5 g/dL (2.3-3.5); Potassium 4.2 mEq/L (3.5-5.1); Protein, Total 7.3 g/dL (6.4-8.2); Troponin High Sensitivity 4.8 pg/mL (<58.9)
--- NOTE | 2023-07-20 15:02 | RAD REPORT ---
EXAM DESCRIPTION: RAD - Chest Single View - 07/20/2023 2:45 pm CLINICAL HISTORY: CHEST PAIN COMPARISON: Chest Single View dated 12/05/2022; Chest Single View dated 06/26/2016; CHEST PA AND LAT 2 VIEW dated 12/14/2013; CHEST PA AND LAT 2 VIEW dated 09/07/2009 FINDINGS: Lines: None. Lungs: No evidence of edema or pneumonia. Pleural: No significant pleural effusions or pneumothorax. Cardiac: The heart size is within normal limits. Mediastinum: Within normal limits. Bones: No acute fractures. Other: None IMPRESSION: No acute cardiopulmonary disease.
[2023-07-20 15:05] LABS: Absolute Eosinophils 0.2 K/uL (0-0.5); Absolute Lymphocytes (CBC) 3.4 K/uL (0.7-4.9); Absolute Monocytes 0.7 K/uL (0.1-1.3); Basophils % 0.4 % (0-1.3); Eosinophils % 1.7 % (0-4.4); Hematocrit 41.1 % (36.0-45.0); Hemoglobin 13.5 g/dL (12.0-15.0); Lymphocytes % 33.3 % (15.3-44.8); MCH 31.3 pg (27.0-35.0); MCHC 32.9 g/dL (32.0-36.0); MCV 95.1 fL (80-100); MPV 7.3 fL (7.6-11.3); Monocytes % 6.6 % (3.3-12.3); Platelets 390 thou/uL (152-406); RBC Red Blood Cell Count 4.33 M/uL (3.86-4.86); Red Cell Distribution Width 12.9 % (12.1-15.2)
[2023-07-20 15:06] LABS: PT Prothrombin Time 12.1 SECONDS (9.5-12.5); Protime INR 1.1
[2023-07-20 15:15] LABS: SARS-CoV-2 Antigen CONTROL BLUE LINE VIS/BG OK; SARS-CoV-2 Antigen Rapid Res Negative (Negative)
--- NOTE | 2023-07-20 15:50 | RAD REPORT ---
EXAM DESCRIPTION: CT - Chest For Pe Angio - 07/20/2023 3:39 pm CLINICAL HISTORY: CHEST PAIN COMPARISON: No comparisons TECHNIQUE: Dynamically enhanced axial 3 mm thick images of the chest were obtained during administra tion of <100> mL Isovue 370 IV contrast. Coronal and oblique reconstruction images were generated and reviewed. Exam utilizes a protocol for optimal evaluation of pulmonary arterial tree. Maximum intensity projections 3D imaging was utilized All CT scans are performed using dose optimization technique as appropriate and may include automated exposure control or mA/KV adjustment according to patient size. FINDINGS: Chest Wall: No suspicious thyroid nodules or pathologic lymphadenopathy. Lungs: No acute abnormality. Pleura: No significant effusions or pneumothorax. Mediastinum/pola: No pathologic lymphadenopathy. Small moderate hiatal hernia. Pulmonary arteries/Aorta: No filling defect identified. No aortic aneurysm. Heart: No significant pericardial effusion. Normal heart size. Upper abdomen: No acute abnormality.Partial gastrectomy. Low-density lesions hepatic dome has benign imaging features. Bones: No acute abnormality. IMPRESSION: Negative for pulmonary embolism. No acute finding identified. Small to moderate hiatal h ernia. Partial gastrectomy.
--- NOTE | 2023-07-20 16:02 | EDPHYS ---
Physician Documentation [facility] Name: Shirley San Age: 62 yrs Sex: Female : 1960 Arrival Date: 07/20/2023 Time: 14:22 Bed 5 Private MD: ED Physician Marcela Rick HPI: 07/19 14:38 This 62 yrs old Female presents to ER via Ambulatory with complaints of Chest sp3 Pain, Shortness Of Breath. 14:38 62-year-old female with a history of hyperlipidemia, diabetes, hypertension now sp3 presents to the ED with chief complaint continued shortness of breath, cough and chest pain. Patient symptoms started approximately 2 weeks ago and she has already seen her PCP who gave her Augmentin, an inhaler and oral steroid to help with her symptoms. She cannot recall the diagnosis that she was given. She has no cardiac history. She currently has dyspnea on exertion and chest pain on exertion and when she takes a deep breath. Denies pain at rest. She also denies headache, fever, neck pain, back pain, abdominal pain, nausea, vomiting, diarrhea, syncope, near syncope, rash, bleeding, or any other signs or symptoms on ROS at this time.. Historical: - Allergies: 14:35 No Known Allergies; as6 - PMHx: 14:35 High Cholesterol; Hypertension; Diabetes mellitus; as6 - PSHx: 14:35 Cholecystectomy; Weight loss surgery; as6 - Immunization history:: Adult Immunizations up to date. - Social history:: Smoking status: Patient/guardian denies using tobacco, but has a distant history of tobacco abuse. ROS: 14:40 Constitutional: Negative for fever, chills, and weight loss, Eyes: Negative for injury, sp3 pain, redness, and discharge, ENT: Negative for injury, pain, and discharge, Neck: Negative for injury, pain, and swelling, Abdomen/GI: Negative for abdominal pain, nausea, vomiting, diarrhea, and constipation, Back: Negative for injury and pain, MS/Extremity: Negative for injury and deformity, Skin: Negative for injury, rash, and discoloration, Neuro: Negative for headache, weakness, numbness, tingling, and seizure, Psych: Negative for depression, anxiety, suicide ideation, homicidal ideation, and hallucinations, Allergy/Immunology: Negative for hives, rash, and allergies, Endocrine: Negative for neck swelling, polydipsia, polyuria, polyphagia, and marked weight changes, Hematologic/Lymphatic: Negative for swollen nodes, abnormal bleeding, and unusual bruising, 14:40 All other systems are negative, Exam: 14:40 Constitutional: This is a well developed, well nourished patient who is awake, alert, sp3 and in no acute distress. Head/Face: Normocephalic, atraumatic. Eyes: Pupils equal round and reactive to light, extra-ocular motions intact. Lids and lashes normal. Conjunctiva and sclera are non-icteric and not injected. Cornea within normal limits. Periorbital areas with no swelling, redness, or edema. ENT: Nares patent. No nasal discharge, no septal abnormalities noted. External auditory canals are clear. Oropharynx with no redness, swelling, or masses, exudates, or evidence of obstruction, uvula midline. Mucous membranes moist. Neck: Trachea midline, no thyromegaly or masses palpated, and no cervical lymphadenopathy. Supple, full range of motion without nuchal rigidity, or vertebral point tenderness. No Meningismus. Chest/axilla: Normal chest wall appearance and motion. Nontender with no deformity. No lesions are appreciated. Cardiovascular: Regular rate and rhythm with a normal S1 and S2. No gallops, murmurs, or rubs. Normal PMI, no JVD. No pulse deficits. Back: No spinal tenderness. No costovertebral tenderness. Full range of motion. Skin: Warm, dry with normal turgor. Normal color with no rashes, no lesions, and no evidence of cellulitis. MS/ Extremity: Pulses equal, no cyanosis. Neurovascular intact. Full, normal range of motion. Neuro: Awake and alert, GCS 15, oriented to person, place, time, and situation. Cranial nerves II-XII grossly intact. Motor strength 5/5 in all extremities. Sensory grossly intact. Cerebellar exam normal. Normal gait. Psych: Awake, alert, with orientation to person, place and time. Behavior, mood, and affect are within normal limits. 14:40 Respiratory: Scattered wheeze and cough, 14:42 ECG was reviewed by the Attending Physician. sp3 14:45 EKG demonstrates left bundle branch block at 75 bpm without concordance which is new sp3 since November 2022. Prior EKGs before that also demonstrate normal sinus rhythm. Vital Signs: 14:34 BP 162 / 85; Pulse 85; Resp 20 S; Temp 97.5(O); Pulse Ox 99% on R/A; Weight 73.94 kg as6 (R); Height 4 ft. 11 in. (R); Pain 5/10; 15:30 BP 113 / 67; Pulse 67; Resp 11; Pulse Ox 95% ; bp 17:04 BP 142 / 61; Pulse 71; Resp 16; Pulse Ox 100% ; bp 14:34 Body Mass Index 32.92 (73.94 kg, 149.86 cm) as6 14:34 Pain Scale: Adult as6 MDM: 14:29 Patient medically screened. sp3 14:40 Data reviewed: vital signs, nurses notes, old medical records, lab test result(s), EKG, sp3 radiologic studies. ED course: 62-year-old female with PMH above now presents to the ED with respiratory symptoms and chest pain on exertion/breathing. Differential diagnosis includes bronchitis, pleurisy, pneumonia, ACS spectrum. I am not highly suspicious for pulmonary embolism. Patient has left bundle branch block on EKG which is new since November 2022.. 16:01 ED course: Workup negative except for new left bundle branch block. The CT scan sp3 demonstrates no PE and no pneumonia. Laboratory values are within normal limits. Given chest pain and new left bundle, we will admit patient in observation and have cardiology evaluate. Patient admitted to the hospitalist service.. 07/19 14:29 Order name: Basic Metabolic Panel; Complete Time: 15:12 3 07/19 14:29 Order name: CBC with Diff; Complete Time: 15:53 3 07/19 14:29 Order name: LFT's; Complete Time: 15:12 3 07/19 14:29 Order name: Magnesium; Complete Time: 15:12 3 07/19 14:29 Order name: NT PRO-BNP; Complete Time: 15:12 sp3 07/19 14:29 Order name: PT-INR; Complete Time: 15:12 07/19 14:29 Order name: Troponin HS; Complete Time: 15:12 sp3 07/19 14:32 Order name: Flu; Complete Time: 15:53 sp3 07/19 14:32 Order name: SARS RAPID; Complete Time: 15:53 sp3 07/19 14:32 Order name: Strep; Complete Time: 15:53 sp3 07/19 15:19 Order name: Throat Culture EDMS 07/19 16:36 Order name: Thyroid Stimulating Hormone EDMO 07/19 16:36 Order name: Urinalysis w/ reflexes EDMS 07/19 16:36 Order name: CBC with Automated Diff EDMS 07/19 16:36 Order name: CBC with Automated Diff EDMS 07/19 16:36 Order name: Comprehensive Metabolic Panel EDMO 07/19 16:36 Order name: Comprehensive Metabolic Panel EDMS 07/19 16:36 Order name: Lipid Profile EDMS 07/19 16:36 Order name: Lipid Profile EDMO 07/19 16:36 Order name: Protime (+INR) EDMS 07/19 16:36 Order name: Protime (+INR) EDMS 07/19 16:36 Order name: PTT, Activated Partial Thromb EDMS 07/19 16:36 Order name: PTT, Activated Partial Thromb EDMS 07/19 16:36 Order name: Troponin High Sensitivity EDMO 07/19 16:36 Order name: Troponin High Sensitivity EDMS 07/19 16:36 Order name: Troponin High Sensitivity EDMO 07/19 14:29 Order name: XRAY Chest (1 view); Complete Time: 15:12 sp3 07/19 14:46 Order name: CT Chest For PE Angio; Complete Time: 15:53 3 07/19 16:36 Order name: CONS Physician Consult EDMO 07/19 14:29 Order name: Cardiac monitoring; Complete Time: 14:34 sp3 07/19 14:29 Order name: EKG - Nurse/Tech; Complete Time: 14:34 sp3 07/19 14:29 Order name: IV Saline Lock; Complete Time: 14:39 sp3 07/19 14:29 Order name: Labs collected and sent; Complete Time: 14:39 sp3 07/19 14:29 Order name: O2 Per Protocol; Complete Time: 14:29 sp3 07/19 14:29 Order name: O2 Sat Monitoring; Complete Time: 14:29 sp3 Administered Medications: 15:02 Drug: Aspirin PO 325 mg PO once Route: PO; ll1 17:07 Follow up: Response: No adverse reaction bp Disposition Summary: 07/20/23 16:02 Hospitalization Ordered Notes: Hospitalization Status: Observation sp3 Provider: Kyle Hernandez sp3 Location: Telemetry/MedSurg (observation) sp3 Condition: Stable sp3 Problem: an acute exacerbation sp3 Symptoms: have worsened sp3 Bed/Room Type: Standard sp3 Room Assignment: 414(07/20/23 16:51) eb Diagnosis - Chest pain, new left bundle branch block sp3 Forms: - Medication Reconciliation Form sp3 - SBAR form sp3 - Leadership Thank You Letter sp3 Signatures: Dispatcher [employer] EDMS Rosi Solis Lynsay, RN RN ll1 Marcela Rick MD MD sp3 Jaskaran Parrish RN RN as6 Ryan Mcduffie RN bp Corrections: (The following items were deleted from the chart) 14:29 14:29 BASIC METABOLIC PANEL+C.LAB.BRZ ordered. EDMS EDMS 14:29 14:29 CBC+H.LAB.BRZ ordered. EDMS EDMS 14:29 14:29 HEPATIC FUNCTION+C.LAB.BRZ ordered. EDMS EDMS 14:29 14:29 MAGNESIUM+C.LAB.BRZ ordered. EDMS EDMS 14:29 14:29 PROBNP+C.LAB.BRZ ordered. EDMS EDMS 14:29 14:29 PROTIME (+INR)+COAG.LAB.BRZ ordered. EDMS EDMS 14:29 14:29 Troponin High Sensitivity+C.LAB.BRZ ordered. EDMS EDMS 14:33 14:33 Influenza Screen (A \T\ B)+BA.LAB.BRZ ordered. EDMS EDMS 14:33 14:33 SARS-COV-2 Antigen Rapid+I.LAB.BRZ ordered. EDMS EDMS 14:33 14:33 Group A Streptococcus Rapid Sc+BA.LAB.BRZ ordered. EDMS EDMS 14:45 14:40 ED course: 62-year-old female with PMH above now presents to the ED with sp3 respiratory symptoms and chest pain on exertion/breathing. Differential diagnosis includes bronchitis, pleurisy, pneumonia, and to a lesser likelihood ACS spectrum. I am not highly suspicious for pulmonary embolism. Will initially obtain EKG which demonstrates left bundle branch block, chest x-ray which is pending and laboratory values including troponin. Will administer nebulizer treatment to start and further layering of medications as indicated.. sp3 16:51 16:02 sp3 eb
--- NOTE | 2023-07-20 16:02 | ER ---
Nurse's Notes [facility] Name: Shirley San Age: 62 yrs Sex: Female : 1960 Arrival Date: 07/20/2023 Time: 14:22 Bed 5 Private MD: Diagnosis: Chest pain, new left bundle branch block Presentation: 07/19 14:35 Chief complaint: Patient states: cough, chest pain, fatigue, shortness of breath. pt as6 has been taking steroids and abx. Coronavirus screen: At this time, the client does not indicate any symptoms associated with coronavirus-19. Ebola Screen: No symptoms or risks identified at this time. Initial Sepsis Screen: Does the patient meet any 2 criteria? No. Patient's initial sepsis screen is negative. Does the patient have a suspected source of infection? No. Patient's initial sepsis screen is negative. Risk Assessment: Do you want to hurt yourself or someone else? Patient reports no desire to harm self or others. Onset of symptoms was June 29, 2023. 14:35 Acuity: SAÚL 2 as6 14:35 Method Of Arrival: Ambulatory as6 Triage Assessment: 14:34 General: Appears ill, Behavior is calm, cooperative, crying. Pain: Complains of pain in as6 chest. Cardiovascular: Reports chest pain, shortness of breath. Historical: - Allergies: 14:35 No Known Allergies; as6 - PMHx: 14:35 High Cholesterol; Hypertension; Diabetes mellitus; as6 - PSHx: 14:35 Cholecystectomy; Weight loss surgery; as6 - Immunization history:: Adult Immunizations up to date. - Social history:: Smoking status: Patient/guardian denies using tobacco, but has a distant history of tobacco abuse. Screenin:06 [facility] ED Fall Risk Assessment (Adult) History of falling in the last 3 months, bp including since admission No falls in past 3 months (0 pts). Abuse screen: Denies threats or abuse. Denies injuries from another. Nutritional screening: No deficits noted. Tuberculosis screening: No symptoms or risk factors identified. Assessment: 14:45 General: SEE TRIAGE NOTE. bp 15:30 Reassessment: No changes from previously documented assessment. Pain: Denies pain. Pain bp does not radiate. Pain began 1 day ago. Cardiovascular: Rhythm is sinus rhythm. 17:06 Reassessment: REPORT FAXED FOR 414. bp Vital Signs: 14:34 BP 162 / 85; Pulse 85; Resp 20 S; Temp 97.5(O); Pulse Ox 99% on R/A; Weight 73.94 kg as6 (R); Height 4 ft. 11 in. (R); Pain 5/10; 15:30 BP 113 / 67; Pulse 67; Resp 11; Pulse Ox 95% ; bp 17:04 BP 142 / 61; Pulse 71; Resp 16; Pulse Ox 100% ; bp 14:34 Body Mass Index 32.92 (73.94 kg, 149.86 cm) as6 14:34 Pain Scale: Adult as6 ED Course: 14:24 Patient arrived in ED. im 14:28 Marcela Rick MD is Attending Physician. sp3 14:34 Arm band placed on. as6 14:35 Inserted saline lock: 22 gauge in right antecubital area, using aseptic technique. ll1 Blood collected. 14:35 Initial lab(s) drawn, by me, sent to lab. EKG done. ll1 14:38 Triage completed. as6 14:46 Ryan Mcduffie, RN is Primary Nurse. bp 14:47 XRAY Chest (1 view) In Process Unspecified. EDMS 14:57 Strep Sent. ll1 14:57 SARS RAPID Sent. ll1 14:57 Flu Sent. ll1 14:57 Basic Metabolic Panel Sent. ll1 14:57 CBC with Diff Sent. ll1 14:58 LFT's Sent. ll1 14:58 Magnesium Sent. ll1 14:58 NT PRO-BNP Sent. ll1 14:58 PT-INR Sent. ll1 14:58 Troponin HS Sent. ll1 15:41 CT Chest For PE Angio In Process Unspecified. EDMS 16:02 Kyle Hernandez MD is Hospitalizing Provider. sp3 17:06 Patient has correct armband on for positive identification. Provided Education on: N/A. bp Client placed on continuous cardiac and pulse oximetry monitoring. NIBP monitoring applied. harmonic analyst on. Administered Medications: 15:02 Drug: Aspirin PO 325 mg PO once Route: PO; ll1 17:07 Follow up: Response: No adverse reaction bp Outcome: 16:02 Decision to Hospitalize by Provider. sp3 17:58 Patient left the ED. ld1 Signatures: Dispatcher [employer] EDMS Ryan Mcduffie RN RN bp Gen De Luna RN RN ll1 Junie Brady RN RN ld1 Marcela Rick MD MD sp3 Jaskaran Parrish RN RN as6 Velma Santos
[2023-07-20] MEDS ORDERED: ACETAMINOPHEN 500 MG TAB PO PRN (16:20)
[2023-07-20] MEDS ORDERED: SODIUM CHLORIDE 0.9% 10ML INJ IV PRN (16:20)
[2023-07-20] MEDS ORDERED: ONDANSETRON 4 MG (ODT) TAB PO PRN (16:20)
[2023-07-20] MEDS: INSULIN REGULAR (HUMAN) 100 UNIT/ML SQ SCH (16:30)
--- NOTE | 2023-07-20 16:37 | P.HP ---
Certification for Inpatient Patient admitted to: Observation With expected LOS: <2 Midnights Patient will require the following post-hospital care: None Practitioner: I am a practitioner with admitting privileges, knowledge of patient current condition, hospital course, and medical plan of care. Services: Services provided to patient in accordance with Admission requirements found in Title 42 Section 412.3 of the Code of Federal Regulations <Beti Morselen - Last Filed: 07/20/23 16:39> Patient History Date of Service: 07/20/23 Primary Care Provider: Mary Munguia Reason for admission: new BBB, Chest pain, HTN, HLD, DM History of Present Illness: Ms. San is a 62-year-old female with a past medical history of hypertension, hyperlipidemia, GERD, diabetes, and anxiety. She has been ill for the last 2 weeks with an upper respiratory infection. She has had a significant cough, and became short of breath with exertion prompting her to come to the emergency department. She has left-sided chest discomfort and shortness of breath mostly with cough. On ED evaluation, her EKG was noted to have a left bundle branch block. Her last EKG showed normal sinus rhythm on November 2022. As she still has some left chest discomfort, combined with her past medical history and development of a left bundle branch block, she will be admitted to the hospital for further evaluation and consultation with cardiology. Initial troponin 4.8, BNP 17. Chest x-ray clear and chest CT negative for PE. Home medications list reviewed: Yes (recently on antibiotics and cough medications, steroid nasal spray) - Past Medical/Surgical History Has patient received pneumonia vaccine in the past: No Diabetic: Yes -: HTN -: HLD -: GERD -: DM -: Overweight -: Anxiety -: Haritha -: gastric sleeve Psychosocial/ Personal History: Anxious, tearful in ED. - Family History Family History: Reviewed- Non-Contributory - Social History Smoking Status: Former smoker Alcohol use: No CD- Drugs: No Caffeine use: Yes Place of Residence: Home <Beti Morselen - Last Filed: 07/20/23 16:39> Date of Service: 07/21/23 <Kyle Hernandez - Last Filed: 07/21/23 11:41> Allergies No Known Allergies Allergy (Unverified 07/06/11 08:48) Review of Systems 10-point ROS is otherwise unremarkable General: Malaise Respiratory: Cough, Shortness of Breath, SOB with Excertion, Pleuritic Pain, As per HPI Cardiovascular: Chest Pain, As per HPI <Beti Morse - Last Filed: 07/20/23 16:39> Physical Examination - Physical Exam General: Alert, Oriented x3 HEENT: Atraumatic, Normocephalic Neck: Supple, 2+ carotid pulse no bruit Respiratory: Clear to auscultation bilaterally, Normal air movement Cardiovascular: No edema, Normal pulses Capillary refill: <2 Seconds Gastrointestinal: Soft and benign Musculoskeletal: No clubbing, No swelling Integumentary: No rashes Neurological: Normal speech, Normal tone Lymphatics: No axilla or inguinal lymphadenopathy External genitalia: Deferred Rectal: Deferred - Studies Laboratory Data (last 24 hrs) 07/20/23 07/20/23 07/20/23 14:35 14:35 14:35 WBC 10.30 Hgb 13.5 Hct 41.1 Plt Count 390 PT 12.1 INR 1.10 Sodium 140 Potassium 4.2 BUN 16 Creatinine 0.82 Glucose 117 H Magnesium 2.0 Total Bilirubin 0.7 AST 17 ALT 25 Alkaline Phosphatase 99 Microbiology Data (last 24 hrs): 07/20/23 14:55 Nasopharnyx Influenza Type A Antigen Screen - Final 07/20/23 14:55 Nasopharnyx Influenza Type B Antigen Screen - Final 07/20/23 14:55 Throat Group A Streptococcus Rapid Screen - Final <Beti Morse - Last Filed: 07/20/23 16:39> - Studies Laboratory Data (last 24 hrs) 07/20/23 07/20/23 07/20/23 14:35 14:35 14:35 WBC 10.30 Hgb 13.5 Hct 41.1 Plt Count 390 PT 12.1 INR 1.10 Sodium 140 Potassium 4.2 BUN 16 Creatinine 0.82 Glucose 117 H Magnesium 2.0 Total Bilirubin 0.7 AST 17 ALT 25 Alkaline Phosphatase 99 Microbiology Data (last 24 hrs): 07/20/23 14:55 Nasopharnyx Influenza Type A Antigen Screen - Final 07/20/23 14:55 Nasopharnyx Influenza Type B Antigen Screen - Final 07/20/23 14:55 Throat Group A Streptococcus Rapid Screen - Final <Kyle Hernandez - Last Filed: 07/21/23 11:41> Assessment and Plan - Plan Chest pain: New left BBB: telemetry serial cardiac enzymes Lovenox 1mg/kg sc BID Consult [facility] HTN: carvedilol 25mg po BID monitor HLD: Rosuvastatin 10mg po q hs DM: FSBS q ac/hs no medications in history for DM except Ozempic - hold for now Upper respiratory infection: Tussionex 5ml po BID prn Anxiety: Paxil 20mg po daily GERD: Protonix 40mg SIVP daily Code status: full Discharge Plan: Home - Advance Directives Does patient have a Living Will: No Does patient have a Durable POA for Healthcare: No - Code Status/Comfort Care Code Status Assessed: Yes (Full) <Beti Morse - Last Filed: 07/20/23 16:39> - Plan Pt seen and examined. I agree with the note by the HOSPICE DIRECTOR. Pt is a 62yo female with past medical history of hypertension, hyperlipidemia, GERD, diabetes, and anxiety who presents with cough, SOB and chest pain. of note pt h ad URI 2 weeks ago. On admission, lab studies show troponin 4.8, BNP 17. EKG shows LBBB. CXR and CT chest are unremarkable. At bedside, pt is in NAD. A/P Chest pain: Will r/o ACS. troponin is 4.8, BNP 17. Will continue [place] therapy. EKG shows LBBB. Cardiology will do cardiac cath. Will keep NPO after midnight. Will continue home meds for other chronic medical problems. <Kyle Hernandez - Last Filed: 07/21/23 11:41>
[2023-07-20] MEDS: ENOXAPARIN 80 MG/0.8 ML SQ SCH (18:59)
[2023-07-20] MEDS: carvediloL 25 MG TAB PO SCH (20:54)
[2023-07-20] MEDS: ROSUVASTATIN 10 MG TAB PO SCH (20:55)
[2023-07-20] MEDS ORDERED: carvediloL 6.25 MG TAB PO SCH ×2 (21:00)
[2023-07-20] MEDS ORDERED: ATORVASTATIN 40 MG TAB PO SCH (21:00)
[2023-07-20] MEDS ORDERED: HYDROCODONE/CHLORPHEN 5 ML/OSYR PO PRN (21:00)
[2023-07-20] MEDS: TRAZODONE 50 MG TABLET PO SCH (22:44)
[2023-07-20 23:09] VITALS: BMI 32.9
[2023-07-21 07:02] LABS: Absolute Eosinophils 0.2 K/uL (0-0.5); Absolute Lymphocytes (CBC) 3.8 K/uL (0.7-4.9); Absolute Monocytes 0.8 K/uL (0.1-1.3); Basophils % 0.4 % (0-1.3); Hematocrit 40.7 % (36.0-45.0); Hemoglobin 13.7 g/dL (12.0-15.0); MCH 32.2 pg (27.0-35.0); MCHC 33.7 g/dL (32.0-36.0); MCV 95.3 fL (80-100); MPV 7.2 fL (7.6-11.3); Neutrophils % 55.6 % (41.7-73.7); Platelets 359 thou/uL (152-406); RBC Red Blood Cell Count 4.27 M/uL (3.86-4.86)
[2023-07-21 07:09] LABS: PT Prothrombin Time 11.5 SECONDS (9.5-12.5); PTT, Activated Partial Thromb 42.6 SECONDS (24.3-36.9); Protime INR 1.05
[2023-07-21 07:21] LABS: Albumin 3.5 g/dL (3.4-5.0); Anion Gap 7.4 mEq/L (5.0-15.0); Bilirubin Total 0.5 mg/dL (0.2-1.0); Globulin 3.5 g/dL (2.3-3.5); Potassium 4.4 mEq/L (3.5-5.1)
--- NOTE | 2023-07-21 08:38 | P.PN ---
Subjective Date of Service: 07/21/23 Primary Care Provider: Mary Munguia Chief Complaint: new BBB, Chest pain, HTN, HLD, DM Admitted with chest pain, reports recent upper respiratory infection cough, Serial troponins negative, abnormal EKG, cardiology consulted n.p.o. for left heart cath - Physical Exam General: Alert, Oriented x3 HEENT: Atraumatic, Normocephalic Neck: Supple, 2+ carotid pulse no bruit Respiratory: Clear to auscultation bilaterally, Normal air movement Cardiovascular: No edema, Normal pulses Capillary refill: <2 Seconds Gastrointestinal: Soft and benign Musculoskeletal: No clubbing, No swelling Integumentary: No rashes Neurological: Normal speech, Normal tone Review of Systems Per HPI Physical Examination - Vital Signs Temperature: 96.9 F Blood Pressure: 103/53 Pulse: 71 Respirations: 16 Pulse Ox (%): 98 - Studies Laboratory Data (last 24 hrs) 07/20/23 07/20/23 07/20/23 14:35 14:35 14:35 WBC 10.30 Hgb 13.5 Hct 41.1 Plt Count 390 PT 12.1 INR 1.10 Sodium 140 Potassium 4.2 BUN 16 Creatinine 0.82 Glucose 117 H Magnesium 2.0 Total Bilirubin 0.7 AST 17 ALT 25 Alkaline Phosphatase 99 Microbiology Data (last 24 hrs): 07/20/23 14:55 Nasopharnyx Influenza Type A Antigen Screen - Final 07/20/23 14:55 Nasopharnyx Influenza Type B Antigen Screen - Final 07/20/23 14:55 Throat Group A Streptococcus Rapid Screen - Final Assessment And Plan - Plan Assessment plan Chest pain New left BBB: telemetry 07/20 serial cardiac enzymes negative 07/20 Lipid panel normal Lovenox 1mg/kg sc BID Consult [facility] Upper respiratory infection: Bronchitis Tussionex 5ml po BID prn Influenza negative Will add Symbicort twice daily for bronchitis Essential HTN: Controlled carvedilol 25mg po BID HLD: Rosuvastatin 10mg po q hs DM: Unknown control FSBS q ac/hs, sliding scale insulin no medications in history for DM except Ozempic - hold for now Anxiety: Paxil 20mg po daily GERD: Protonix 40mg SIVP daily Code status: full Diet cardiac DVT Discharge Plan: Home Discharge Plan: Home - Code Status/Comfort Care Code Status: Full Code Critical Care: No Time Spent Managing PTS Care (In Minutes): 35
[2023-07-21] MEDS: PARoxetine HCL 10 MG TAB PO SCH (09:00)
[2023-07-21] MEDS: ASPIRIN EC 81 MG TAB PO SCH (09:00)
[2023-07-21] MEDS: PANTOPRAZOLE 40 MG INJ IVP SCH (09:00)
[2023-07-21] MEDS: NA CHLORIDE 0.9% 500 ML ONE (11:00)
[2023-07-21] MEDS ORDERED: TICAGRELOR 90 MG TABLET PO ONE (11:47)
[2023-07-21] MEDS ORDERED: ATROPINE SULF 1 MG/10 ML SYR IV ONE (11:47)
[2023-07-21] MEDS ORDERED: VERAPAMIL HCL 10 MG/4 ML VIAL IV ONE (11:47)
[2023-07-21] MEDS ORDERED: MIDAZOLAM HCL 2 MG/2 ML INJ ONE (11:47)
[2023-07-21] MEDS ORDERED: FENTANYL CITR 100 MCG/2 ML ONE (11:47)
[2023-07-21] MEDS ORDERED: LIDOCAINE 1% 20 ML MDV ONE (11:47)
[2023-07-21] MEDS ORDERED: ASPIRIN 325 MG TAB ONE (11:48)
[2023-07-21] MEDS ORDERED: CLOPIDOGREL 75 MG TABLET ONE (11:48)
[2023-07-21] MEDS ORDERED: HEPARIN 10,000 UNIT/10 ML VIAL IV ONE (11:48)
[2023-07-21] MEDS ORDERED: HEPA 1000U/500MLS 2,000 UNIT/1,000 ML BAG IV ONE (11:50)
[2023-07-21] MEDS ORDERED: HEPARIN 5000 UNIT/ML 1 ML VIAL ONE (11:50)
--- NOTE | 2023-07-21 13:40 | EKG ---
Test Date: 2023-07-20 Test Time: 14:21:06 [employer] Supervisor: LML MEASUREMENT RESULTS: Intervals: Rate: 75 TX: 144 QRSD: 148 QT: 426 QTc: 475 [place]: P: 4 TX: 144 QRS: 1 T: 131 INTERPRETIVE STATEMENTS: Normal sinus rhythm Left bundle branch block Abnormal ECG Compared to ECG 12/05/2022 17:27:16 Left bundle-branch block now present Electronically Signed On 07-21-23 13:36:42 CDT by Renato Miller
[2023-07-21] MEDS ORDERED: ALBUTEROL INHALER 200 PUFF/6.7 GM IH PRN ×2 (15:53→16:00)
[2023-07-21] MEDS: DULERA 100/5 (MOMETASONE/FORMOTEROL) INHALER IH SCH (17:38)
--- NOTE | 2023-07-21 18:30 | CON ---
Date of Consultation: 07/21/2023 Reason For Consultation: Chest pain. New left bundle branch block. History Of Present Illness: A 62-year-old female, history of hypertension, dyslipidemia, and diabete s, acid reflux, anxiety, presented with chest pain, left upper side and that goes to the shoulder. A lso, she has been having some mild congestion and cough. The EKG showed left bundle branch block, wh ich is new. Her last EKG was normal. Cardiac enzymes are negative, but raise a concern for acute co ronary syndrome. Past Medical History: Hypertension, dyslipidemia, acid reflux, diabetes, overweight. Medications: Refer to reconciliation sheet for detailed list. Allergies: NO KNOWN DRUG ALLERGIES. Family History: No mention of coronary artery disease or cancer. Social History: She does not smoke or drink. Does not use any drugs. Review of Systems: All systems reviewed are negative except mentioned in HPI. Physical Examination: Vital Signs: Reviewed. Head and Neck: Pupils are equal, reactive to light. Intact eye movements. No JVD. No cervical lym phadenopathy. Neck: Supple. Thyroid is not enlarged. Lungs: Clear to auscultation bilaterally. No rhonchi, rales, or crackles. No accessory muscle use. Heart: Regular rate and rhythm. No extra sounds. Abdomen: Soft, nontender. Bowel sounds positive. No organomegaly. No masses or hernia. No rigidi ty or rebound. Extremities: No edema, clubbing, cyanosis, intact pulses. SKIN: No rash was noted. Neurologic: Alert, awake, oriented x3. No acute focal deficits appreciated. Investigations: Cardiac enzymes x3 is negative. BUN is 15, creatinine 0.75, and LDL is 43. Assessment/recommendations: 1.Chest pain with new onset of left bundle branch block. Recommend to proceed with coronary angiogr am. Keep n.p.o., plan accordingly. Continue aspirin. 2.Dyslipidemia. Continue statin. 3.Hypertension. Blood pressure is controlled. Continue current therapy. SR/MODL Voice ID: [id number] Report ID: [id number]
[2023-07-21] MEDS ORDERED: TRAZODONE 50 MG TABLET PO SCH (21:00)
--- NOTE | 2023-07-21 23:39 | OP ---
Date of Procedure: 07/21/2023 Surgeon: Andres Gutierrez Procedures Performed: 1.Left heart catheterization. 2.Coronary angiogram. Indication For Procedure: New left bundle branch block. Complications: None. Sedation: 20 minutes. Blood Loss: Less than 50 cc. Access: Right radial 6-Nauruan TR band for closure. Description Of Procedures: After risks, benefits, and alternatives were explained to the patient, daniele wood agreed to proceed with the procedure and signed informed consent. The patient was brought to [employer] and draped in a sterile fashion. Time-out was performed. Sedation was administered. [facility] radial access was obtained. The 6-Nauruan sheath was advanced. Next, a 5-Nauruan [place] 4 catheter was advanced over J-wire to the LV cavity. Left ventricular end-diastolic pressure was obtained. P ullback did not show any gradient. Same catheter was used for selective coronary angiogram of the le ft and right coronary systems. At the end of the procedure, catheter was removed over a J-wire and t sheath was closed with a TR band. No complications. Findings: 1.Left main: Normal. 2.LAD: Normal. 3.Left circ: Normal. 4.RCA is normal. Assessment And Plan: 1.Normal coronary flow. 2.Normal filling pressure. Plan will be to continue medical management. MEDHAT Voice ID: [id number] Report ID: [id number]
[2023-07-22 04:05] VITALS: O2SAT 98
[2023-07-22 07:23] LABS: Anion Gap 6.8 mEq/L (5.0-15.0); Magnesium 2.2 mg/dL (1.6-2.4); Potassium 3.8 mEq/L (3.5-5.1)
--- NOTE | 2023-07-22 08:53 | P.DS ---
Admission Date: 07/20/23 Discharge Date: 07/22/23 Primary Care Provider: Mary Munguia Disposition: ROUTINE DISCHARGE Discharge Condition: GOOD Reason for Admission: new BBB, Chest pain, HTN, HLD, DM Brief History of Present Illness: Ms. San is a 62-year-old female with a past medical history of hypertension, hyperlipidemia, GERD, diabetes, and anxiety. She has been ill for the last 2 weeks with an upper respiratory infection. She has had a significant cough, and became short of breath with exertion prompting her to come to the emergency department. She has left-sided chest discomfort and shortness of breath mostly with cough. On ED evaluation, her EKG was noted to have a left bundle branch block. Her last EKG showed normal sinus rhythm on November 2022. As she still has some left chest discomfort, combined with her past medical history and development of a left bundle branch block, she will be admitted to the hospital for further evaluation and consultation with cardiology. Initial troponin 4.8, BNP 17. Chest x-ray clear and chest CT negative for PE. - Physical Exam General: Alert, Oriented x3 HEENT: Atraumatic, Normocephalic Neck: Supple, 2+ carotid pulse no bruit Respiratory: Clear to auscultation bilaterally, Normal air movement Cardiovascular: No edema, Normal pulses Capillary refill: <2 Seconds Gastrointestinal: Soft and benign Musculoskeletal: No clubbing, No swelling Integumentary: No rashes Neurological: Normal speech, Normal tone Lymphatics: No axilla or inguinal lymphadenopathy Hospital Course: 62 year-old female patient presented with chest pain, upper respiratory infection.Was noted to have upper respiratory infection with frequent cough x 1 month. Condition improved with as needed analgesics, inhaled corticosteroid. Patient was evaluated by cardiology had a left heart cath that was normal. Patient tolerating diet, stable for discharge to home with follow-up appointment with primary care physician. Follow-up with cardiology for chest pain PROBLEM: Upper respiratory infection Atypical chest pain normal heart cath Left bundle branch block follow-up with cardiology Hypertension resume Coreg Hyperlipidemia resume antilipid Anxiety resume home medications Diabetes educated on diabetic diet Follow-up with cardiology outpatient Continue home medicines as previously prescribed GOAL: Clear understanding of disease process INSTRUCTIONS: Physician Discharge Instructions: -DC IV and DC home -Follow-up with PCP in 1 to 2 weeks -Please call Dr. Gonzalez at [phone] if any questions regarding hospital stay -Please call nursing station at [phone] if any nursing or medication questions -Return to the emergency room if symptoms worsen Diet: ADA, low sodium Activity: Fall precautions Vital Signs/Physical Exam: Temp Pulse Resp BP Pulse Ox 97.0 F 72 18 141/64 H 94 07/22/23 04:00 07/22/23 04:00 07/22/23 04:00 07/22/23 04:00 07/22/23 04:00 Laboratory Data at Discharge: WBC 10.80 thou/uL (4.3-10.9) 07/21/23 06:35 Hgb 13.7 g/dL (12.0-15.0) 07/21/23 06:35 Hct 40.7 % (36.0-45.0) 07/21/23 06:35 Plt Count 359 thou/uL (152-406) 07/21/23 06:35 PT 11.5 SECONDS (9.5-12.5) 07/21/23 06:35 INR 1.05 07/21/23 06:35 APTT 42.6 SECONDS (24.3-36.9) H 07/21/23 06:35 Sodium 140 mEq/L (136-145) 07/22/23 05:24 Potassium 3.8 mEq/L (3.5-5.1) D 07/22/23 05:24 BUN 18 mg/dL (7-18) 07/22/23 05:24 Creatinine 0.74 mg/dL (0.55-1.02) 07/22/23 05:24 Glucose 84 mg/dL (74-106) 07/22/23 05:24 Phosphorus 4.0 mg/dL (2.5-4.9) 07/22/23 05:24 Magnesium 2.2 mg/dL (1.6-2.4) 07/22/23 05:24 Total Bilirubin 0.5 mg/dL (0.2-1.0) 07/21/23 06:35 AST 20 U/L (15-37) 07/21/23 06:35 ALT 26 U/L (13-56) 07/21/23 06:35 Alkaline Phosphatase 102 U/L (45-117) 04/01/24 06:35 Triglycerides 175 mg/dL (<150) H 07/21/23 06:35 Cholesterol 120 mg/dL (<200) 07/21/23 06:35 HDL Cholesterol 42 mg/dL (40-60) 07/21/23 06:35 Cholesterol/HDL Ratio 2.86 07/21/23 06:35 Home Medications: Albuterol Inhaler [Ventolin Inhaler*] 2 puff IH Q6H PRN 07/20/23 Aspirin Chewable [Aspirin Chewable*] 81 mg PO DAILY 07/20/23 Esomeprazole Mag Trihydrate [Nexium] 40 mg PO DAILY 07/20/23 Fluoxetine HCl [Prozac] 20 mg PO DAILY 07/20/23 Rosuvastatin [Crestor*] 10 mg PO BEDTIME 07/20/23 Trazodone HCl [Desyrel] 100 mg PO BEDTIME 07/20/23 carvediloL [Coreg*] 25 mg PO DAILY 07/20/23 Physician Discharge Instructions: -DC IV and DC home -Follow-up with PCP in 1 to 2 weeks -Follow-up with Cardiology as needed -Please call Dr. Gonzalez at [phone] if any questions regarding hospital stay -Please call nursing station at [phone] if any nursing or medication questions -Return to the emergency room if symptoms worsen Diet: AHA Activity: Fall precautions Followup: NONE,NONE [Primary Care Provider] - Time spent managing pt's care (in minutes): 55
[2023-07-22 09:01] VITALS: TEMP 96.9
[2023-07-22 09:47] VITALS: BP 118/84
== END 2023-07-22 10:06 | disposition home or self-care (01) ==
LOC: ER 14:22 → ERHOLD 16:20 → 4TH 17:42
PROVIDERS: ADMIT Hospitalist; ATTEND Hospitalist
PROC: 4A023N7 Measurement of Cardiac Sampling and Pressure, Left Heart, Percutaneous Approach (ICD-10-PCS; principal; 2023-07-21)
PROC: B2111ZZ Fluoroscopy of Multiple Coronary Arteries using Low Osmolar Contrast (ICD-10-PCS; 2023-07-21)
DX: R07.89 Other chest pain (principal); I44.7 Left bundle-branch block, unspecified; J06.9 Acute upper respiratory infection, unspecified; J40 Bronchitis, not specified as acute or chronic; I10 Essential (primary) hypertension; E78.5 Hyperlipidemia, unspecified; E11.9 Type 2 diabetes mellitus without complications; F41.9 Anxiety disorder, unspecified; K21.9 Gastro-esophageal reflux disease without esophagitis; E66.3 Overweight; Z68.32 Body mass index [BMI] 32.0-32.9, adult; Z98.84 Bariatric surgery status; Z90.49 Acquired absence of other specified parts of digestive tract; Z87.891 Personal history of nicotine dependence; Z79.84 Long term (current) use of oral hypoglycemic drugs; Z11.52 Encounter for screening for COVID-19
CPT/HCPCS: 93005; 87070; 85025 ×2; 80048 ×2; 36415 ×3; 83735 ×2; 84100; 85610 ×2; 80061; 82947 ×7; 80076; 87081; 85730; 84443; 84484 ×3; 80053; 83880; 87804 ×2; 71275; 71045; 93458; 76937; 99284; 87811; Q9967; C1893; Q9966; J1644; J3535; J2001; J2250; J3010; G0378 ×6; J7040; 99152; 99153; J0461

== ENCOUNTER 2023-10-11 12:44 | Emergency (ER) | payer OTHER ==
--- OUTSIDE RECORDS SUMMARY | 2023-10-11 12:47 | XMS REPORT | Continuity of Care Document ---
Author Name Unknown Address [address] [place] [address] [facility] Address [address] [place] [address] Care Team Providers Care Cartographic Drafter Name Role Phone AMBROSE GRECO Primary Care Physician UnavailLuke Valencia Attending Clinician Unavailable Ambrose Atkins Attending Clinician Unavailable TANIA ALARCON Attending Clinician Unavailable ROSALES PEREZ Attending Clinician Unavail able ROSALES PEREZ Attending Clinician Unavail able HANNAH KEARNEY Attending Clinician Unavailable Hannah Kearney MD Attending Clinician Doctor Unassigned, [place] Attending Clinician U navailable RADIOLOGY Attending Clinician Unavailable TANIA ALARCON Attending Clinician Unavail able [place]obe [place] RN Attending Clinician Unavailab nela Smith, Bhavani [facility] Pob I Attending Clinician Unavailab le Unknown, Attending Attending Clinician Unavailab nela UNKNOWN, ATTENDING Attending Clinician Unavailab Precious Lagos RN Attending Clinician Unavailable Vidya Lee Attending Clinician [phone] VIDYA JOHNSON Attending Clinician Unavailable HANNAH KEARNEY Admitting Clinician Unavailable TANIA ALARCON Admitting Clinician Unavail able Payers Payer Name Policy Type Policy Number Effective Date Expirati on Date Source [place] STAR+PLUS [id number] 2016 00:00:00 [employer] DUAL COMP HMO D SNP [id number] 2022 00:00:00 [facility] STAR PLUS [id number] 2023 00:00:00 Problems Condition Name Condition Details Condition Category Status Onset Date Resolution Date Last Treatment Date Treating Clinician Comments Source Essential hypertensi on Essential hypertensi on Disease Active 08-15 00:00: 00 [facility] Palpitatio ns Palpitatio ns Disease Active 08-15 00:00: 00 [facility] LBBB (left bundle branch block) LBBB (left bundle branch block) Disease Active 08-15 00:00: 00 [facility] [id number] Mixed hyperlipid emia Problem Active [facility] [id number] Depression with anxiety Problem Active [facility] [id number] Hyperglyce artie Problem Active [facility] [id number] Seasonal allergic rhinitis, unspecifie d trigger Problem Active [facility] [id number] Primary insomnia Problem Active [facility] [id number] Muscle strain Problem Active [facility] [id number] Gastroesop hageal reflux disease without esophagiti s Problem Active [facility] [id number] Acute pain of right hip Problem Active [facility] [id number] Diabetes 1.5, managed as type 2 Problem Active [facility] [id number] Body mass index (BMI) of 40.0-44.9 in adult Problem Active [facility] [id number] Primary osteoarthr itis of right knee Problem Active [facility] [id number] Primary osteoarthr itis of left knee Problem Active [facility] Allergies, Adverse Reactions, Alerts Allergy Name Allergy Type Status Severity Reaction(s) Onset Date Inactive Date Treating Clinician Comments Source NO KNOWN ALLERGIE S Drug Class Active [facility] Social History Social Habit Start Date Stop Date Quantity Comments Source History of Tobacco Use [facility] Sex Assigned At [facility] Gender identity [facility] to SARS-CoV-2 (event) 2020-03-25 00:00:00 2020-04-24 16:55:00 Not sure [facility] Smoking Status Start Date Stop Date Source Tobacco smoking consumption unknown [facility] Former Smoker 2021-11-15 00:00:00 2021-11-15 00:00:00 [facility] Medications Ordered Medication Name Filled Medication Name Start Date Stop Date Current Medication? Ordering Clinician Indication Dosage Frequency Signature (SIG) Comments Components Source perflutren protein-A microsphr (OPTISON) injection 3 mL 09-15 19:00: 00 09-15 19:06 :00 No [id number] 3mL 3 mL, IV Push, ONCE, 1 dose, On Fri09/16/23 at 1400, Routine [facility] aspirin 81 mg chewable tablet 08-14 09:23: 26 Yes 81mg Take 1 tablet by mouth in the morning. [facility] FLUoxetine 20 mg capsule 08-14 09:23: 26 Yes 20mg Take 1 capsule by mouth in the morning. [facility] esomeprazol e 40 mg capsule 08-14 09:23: 26 Yes 40mg Take 1 capsule by mouth daily with breakfast. [facility] carvediloL 25 mg tablet 08-14 09:23: 26 Yes 25mg Take 1 tablet by mouth in the morning and 1 tablet in the evening. Take with meals. [facility] VENTOLIN HFA 90 mcg/actuati on inhaler 07-13 00:00: 00 Yes [facility] traZODone 100 mg tablet 06-23 00:00: 00 Yes [facility] rosuvastati n 10 mg tablet 06-14 00:00: 00 Yes [facility] Ketorolac 15mg Ketorolac 15mg 12-09 00:00: 00 No 60mg [facility] Ketorolac 15mg Ketorolac 15mg 12-09 00:00: 00 No 60mg [facility] Methocarbam ol Methocarbam ol 12-09 00:00: 00 12-16 00:00 :00 No Romy Loyola 1 tablet [facility] Claritin Claritin 07-07 00:00: 00 01-03 00:00 :00 No Romy Loyola 1 tablet [facility] HydrOXYzine HCl HydrOXYzine HCl 12-16 00:00: 00 Yes Romy Loyola 1 tablet as needed [facility] hydrOXYzine HCl 50 MG hydrOXYzine HCl 50 MG 12-16 00:00: 00 No 1{table t_as_ne eded} QID hydrOXYzin e HCl 50 MG hydrOXYzine HCl 50 MG hydrOXYzine HCl 50 MG 12-16 00:00: 00 No 1{table t_as_ne eded} QID hydrOXYzin e HCl 50 MG Toradol (Ketorolac) Toradol (Ketorolac) 10-15 00:00: 00 No 60mg [facility] Toradol (Ketorolac) Toradol (Ketorolac) 10-15 00:00: 00 No 60mg [facility] Fluticasone Propionate Fluticasone Propionate 10-07 00:00: 00 Yes Romy Loyola 1 spray in each nostril [facility] Lexapro Lexapro Yes Romy Loyola TAKE ONE TABLET BY MOUTH DAILY [facility] Metformin HCl Metformin HCl Yes Romy Loyola 1 tablet with a meal [facility] Esomeprazol e Magnesium Esomeprazol e Magnesium Yes Romy Loyola TAKE ONE CAPSULE BY MOUTH DAILY [facility] Victoza Victoza Yes Romy Loyola not defined [facility] Lexapro 20 MG Lexapro 20 MG [...] il} QD Fluticason e Propionate 50 MCG/ACT Lopid 600 MG Lopid 600 MG No [...] e Magnesium Yes Romy Loyola 1 tablet [facility] Lopid Lopid Yes Romy Loyola TAKE ONE TABLET BY MOUTH TWICE A DAY [facility] Aspirin Aspirin Yes Romy Loyola 1 tablet [facility] Trazodone HCl Trazodone HCl Yes Romy Loyola 1 tablet at bedtime as needed [facility] Coreg Coreg Yes Romy Loyola TAKE ONE TABLET BY MOUTH TWICE A DAY [facility] Pyridium Pyridium Yes Romy Loyola 1 tablet after meals [facility] Lipitor Lipitor Yes Romy Loyola TAKE ONE TABLET BY MOUTH EVERY NIGHT AT BEDTIME [facility] Carvedilol Carvedilol Yes Romy Loyola bid [facility] :00 No Romy Loyola 1 [facility] Vital Signs Vital Name Observation Time Observation Value Comments S ource Systolic blood pressure 2023-08-15 14:19:00 123 mm[Hg] [facility] Diastolic blood pressure 2023-08-15 14:19:00 74 mm[Hg] [facility] Heart rate 2023-08-15 14:19:00 79 /min [facility] Body temperature 2023-08-15 14:19:00 36.33 Romy [facility] Respiratory rate 2023-08-15 14:19:00 20 /min [facility] Body height 2023-08-15 14:19:00 147.3 cm [facility] Body weight 2023-08-15 14:19:00 73.936 kg [facility] BMI 2023-08-15 14:19:00 34.07 kg/m2 [facility] Oxygen saturation in Arterial blood by Pulse oximetry 2023-08-15 14:19:00 94 /min [facility] height 2021-11-15 13:30:00 59 [in_i] [facility] weight 2021-11-15 13:30:00 166 [lb_av] [facility] bmi 2021-11-15 13:30:00 33.52 kg/m2 [facility] blood pressure systolic 2021-11-15 13:30:00 130 mm[Hg] [facility] blood pressure diastolic 2021-11-15 13:30:00 82 mm[Hg] [facility] Procedures Procedure Date / Time Performed Performing Clinicia n Source REFERRAL- REQUEST/RESPONSE 2022-12-12 05:01:00 Doctor Unassigned, [place] [facility] Encounters Start Date/Time End Date/Time Encounter Type Admission Type Attending Clinicians Care Facility Care Department Encounter ID Source 2021-11-23 15:42:01 Outpatient Jamison Luke [facility] [id number] [facility] 2021-11-16 09:32:00 Outpatient JamisonLuke [facility] [id number] [facility] 2021-11-15 13:19:01 Outpatient Jamison Luke [facility] [id number] [facility] 2021-11-08 08:46:00 Outpatient Ambrose Atkins [facility] [id number] [facility] 2021-10-10 16:31:00 Outpatient Abmrose Atkins [facility] [id number] [facility] 2021-09-13 09:44:00 Outpatient Ambrose Atkins [facility] [id number] [facility] 2020-09-07 14:24:41 Outpatient TANIA ALARCON [facility] [id number] [facility] 2023-10-07 13:00:00 2023-10-07 14:05:17 Outpatient ROSALES FRAZIER [facility] [id number] [facility] 2023-09-16 13:00:00 2023-09-16 23:59:00 [facility] [id number] [facility] 2023-09-16 13:00:00 2023-09-16 23:59:00 Hospital Encounter [facility] [id number] 350.1.13.10 4.2.7.2.686 [id number] [facility] 2023-08-28 16:00:00 2023-08-28 16:00:00 Outpatient Jessica [facility]NEY [facility] [id number] [facility] 2023-08-15 09:30:00 2023-08-15 10:10:27 [facility] [id number] 2023-08-15 09:30:00 2023-08-15 10:10:27 Office Visit Geovanna [facility] .840.114 350.1.13.10 4.2.7.2.686 [id number] [facility] 2023-01-10 09:20:00 2023-01-10 09:20:00 Outpatient ROSALES FRAZIER [facility] [id number] [facility] 2022-12-12 00:00:00 2022-12-12 00:00:00 Orders Only Doctor Unassigned, [place] [facility] .840.114 350.1.13.10 4.2.7.2.686 [id number] [facility] 2021-11-15 00:00:00 2021-11-15 00:00:00 OFFICE VISIT NEW PT LEVEL 4 [facility] [id number] [facility] 2021-09-13 00:00:00 2021-09-13 00:00:00 (TEL) [facility] [id number] [facility] 2020-05-11 00:00:00 2020-05-11 00:00:00 Outpatient R RADIOLOGY [facility] [id number] [facility] 2020-01-21 05:17:00 2020-01-23 11:30:00 Inpatient TANIA ALARCON [id number] 2019-11-05 00:00:00 2019-11-05 00:00:[facility] 1.840.114 350.1.13.10 4.2.7.2.686 [id number] [facility] 2019-11-05 00:00:00 2019-11-05 00:00:00 Patient Secure Msg Doctor Unassigned, [place] [facility] [id number] 350.1.13.10 4.2.7.2.686 [id number] [facility] 2019-11-05 00:00:00 2019-11-05 00:00:00 Telephone Christiane, [facility] [id number] 350.1.13.10 4.2.7.2.686 [id number] 2019-11-03 00:00:00 2019-11-03 00:00:00 Patient Secure Msg Doctor Unassigned, [place] [facility] OFFICE BUILDING ONE 1..840.114 350.1.13.10 4.2.7.2.686 [id number] [facility] 2019-11-01 13:27:22 2019-11-01 13:47:22 Laboratory Only Lab, Adc Fam Pob I Unknown, Attending [facility] [id number] 350.1.13.10 4.2.7.2.686 [id number] [facility] 2019-11-01 13:27:22 2019-11-01 13:47:22 Laboratory Only Lab, Adc Fam Pob I [facility] [id number] 350.1.13.10 4.2.7.2.686 [id number] 2019-11-01 13:20:00 2019-11-01 13:20:00 Outpatient R UNKNOWN, ATTENDING [facility] [id number] [facility] 2019-10-17 00:00:00 2019-10-17 00:00:00 Telephone [facility] 1.2.840.114 350.1.13.10 4.2.7.2.686 [id number] [facility] 2019-10-17 00:00:00 2019-10-17 00:00:00 Telephone [facility] [id number] 350.1.13.10 4.2.7.2.686 [id number] 2019-10-15 11:46:21 2019-10-15 12:06:21 Laboratory Only Lab, Adc Fam Pob I Vidya Johnson [facility] [id number] 350.1.13.10 4.2.7.2.686 [id number] [facility] 2019-10-15 11:46:21 2019-10-15 12:06:21 Laboratory Only Lab, Adc Fam Pob I [facility] [id number] 350.1.13.10 4.2.7.2.686 [id number] 2019-10-15 11:40:00 2019-10-15 11:40:00 Outpatient VIDYA NI [facility] [id number] [facility] 2019-02-22 14:43:00 2019-02-22 14:43:00 Outpatient zzzAmy Schochler DO zzzAmy Schochler DO [id number] [facility] 2018-12-09 17:30:00 2018-12-09 17:30:00 [facility] [id number] [facility] 2018-07-07 11:30:00 2018-07-07 11:30:[address] [facility] [address] [id number] [facility] 2018-06-23 11:00:00 2018-06-23 11:00:00 [facility] [address] [facility] [id number] [facility] 2018-01-22 09:00:00 2018-01-22 09:00:[address] [facility] [address] [id number] [facility] 2017-12-29 15:51:00 2017-12-29 15:51:[address] [facility] [address] [id number] [facility] 2017-12-16 09:15:00 2017-12-16 09:15:[address] [facility] [facility] [address] [id number] [facility] 2017-10-15 16:15:00 2017-10-15 16:15:00 [facility] [id number] [facility] 2017-10-13 14:45:00 2017-10-13 14:45:[address] [facility] [facility] [address] [id number] [facility] 2017-10-07 13:00:00 2017-10-07 13:00:[address] [facility] [address] [facility] [id number] [facility]
[2023-10-11 13:52] LABS: Specific Gravity < 1.005 (1.005-1.030); Sqamous Epithelial <5 /HPF (None Seen); Urine Bacteria None Seen /HPF (<20); Urine Bilirubin NEGATIVE (Negative); Urine Blood Negative (Negative); Urine Clarity Clear (Clear); Urine Color Colorless (Yellow); Urine Culture Reflex Order NOT NEEDED; Urine Glucose NEGATIVE (Negative); Urine Ketones NEGATIVE (Negative); Urine Micro Reflex YN NO BILL MICROSCOPIC; Urine Nitrite NEGATIVE (Negative); Urine Protein NEGATIVE (Negative); Urine RBC None Seen /HPF (None Seen); Urine Urobilinogen Normal (Normal); Urine WBC <5 /HPF (<5)
--- NOTE | 2023-10-11 14:01 | ER ---
Nurse's Notes [facility] Name: Shirley San Age: 62 yrs Sex: Female : 1960 Arrival Date: 10/11/2023 Time: 12:44 Bed 9 Private MD: Diagnosis: Dysuria Presentation: 10/10 12:53 Chief complaint: Patient states: BURNING WITH URINATION X 3 WEEKS. STATES TRIED SOME db OLD ANTIBIOTICS BUT SYMPTOMS ARE STILL PRESENT. ANTIBIOTICS START WITH A "C". Coronavirus screen: Client denies travel out of the [place] in the last 14 days. At this time, the client does not indicate any symptoms associated with coronavirus-19. Ebola Screen: Patient negative for fever greater than or equal to 101.5 degrees Fahrenheit, and additional compatible Ebola Virus Disease symptoms Patient denies exposure to infectious person. Patient denies travel to an Ebola-affected area in the 21 days before illness onset. No symptoms or risks identified at this time. Initial Sepsis Screen: Does the patient meet any 2 criteria? No. Patient's initial sepsis screen is negative. Does the patient have a suspected source of infection? No. Patient's initial sepsis screen is negative. Risk Assessment: Do you want to hurt yourself or someone else? Patient reports no desire to harm self or others. Onset of symptoms was October 11, 2023. 12:53 Method Of Arrival: Ambulatory db 12:53 Acuity: SAÚL 3 db Triage Assessment: 12:55 General: Appears in no apparent distress. comfortable, Behavior is calm, cooperative. db Pain: Denies pain. Neuro: Level of Consciousness is awake, alert, obeys commands, Oriented to person, place, time, situation. Respiratory: Airway is patent Respiratory effort is even, unlabored, Respiratory pattern is regular, symmetrical. : Reports burning with urination. Historical: - Allergies: 12:55 No Known Allergies; db - PMHx: 12:55 diabetes mellitus; High Cholesterol; Hypertension; db - PSHx: 12:55 Cholecystectomy; Weight loss surgery; db - Immunization history:: Adult Immunizations unknown. - Infectious Disease History:: Denies. - Social history:: Smoking status: Patient denies any tobacco usage or history of. - Family history:: not pertinent. Screenin:11 [facility] ED Fall Risk Assessment (Adult) History of falling in the last 3 months, ld1 including since admission No falls in past 3 months (0 pts) Confusion or Disorientation No (0 pts) Intoxicated or Sedated No (0 pts) Impaired Gait No (0 pts) Mobility Assist Device Used No (0 pt) Altered Elimination No (0 pt) Score/Fall Risk Level 0 - 2 = Low Risk. Abuse screen: Denies threats or abuse. Denies injuries from another. Nutritional screening: No deficits noted. Tuberculosis screening: No symptoms or risk factors identified. Assessment: 14:11 General: Appears in no apparent distress. comfortable, Behavior is calm, cooperative, ld1 appropriate for age. Pain: Denies pain. Neuro: Level of Consciousness is awake, alert, obeys commands, Oriented to person, place, time, situation. Cardiovascular: Capillary refill < 3 seconds Patient's skin is warm and dry. Respiratory: Airway is patent Respiratory effort is even, unlabored. GI: Abdomen is flat, non-distended. : Reports burning with urination. EENT: No signs and/or symptoms were reported regarding the EENT system. Derm: No signs and/or symptoms reported regarding the dermatologic system. Musculoskeletal: No signs and/or symptoms reported regarding the musculoskeletal system. Vital Signs: 12:53 BP 134 / 66; Pulse 82; Resp 18; Temp 98; Pulse Ox 98% ; Weight 70.31 kg; Height 4 ft. db 10 in. ; 14:11 BP 129 / 72; Pulse 76; Resp 18; Pulse Ox 99% on R/A; ld1 12:53 Body Mass Index 32.39 (70.31 kg, 147.32 cm) db ED Course: 12:47 Patient arrived in ED. im 12:52 Richard Rawls MD is Attending Physician. rt 12:55 Triage completed. db 12:55 Arm band placed on Patient placed in an exam room. db 13:13 Junie Brady, LIZETTE is Primary Nurse. ld1 13:34 [facility] Sent. zm 14:11 Patient has correct armband on for positive identification. Placed in gown. Bed in low ld1 position. Call light in reach. Side rails up X2. clinical research monitor on. Pulse ox on. NIBP on. 14:11 No provider procedures requiring assistance completed. ld1 14:13 Patient did not have IV access during this emergency room visit. ld1 Administered Medications: No medications were administered Medication: 14:11 VIS not applicable for this client. ld1 Outcome: 14:00 Discharge ordered by . rt 14:13 Discharged to home ambulatory, ld1 14:13 Condition: stable 14:13 Discharge instructions given to patient, Instructed on discharge instructions, follow up and referral plans. Demonstrated understanding of instructions, follow-up care, 14:13 Patient left the ED. ld1 Signatures: Junie Brady RN RN ld1 Nicci Johnson Danielle, RN RN db Richard Rawls MD MD rt Velma Santos im
--- NOTE | 2023-10-11 14:01 | EDPHYS ---
[facility] Name: Shirley San Age: 62 yrs Sex: Female : 1960 Arrival Date: 10/11/2023 Time: 12:44 Bed 9 Private MD: ED Physician Richard Rawls HPI: 10/10 14:44 This 62 yrs old Female presents to ER via Ambulatory with complaints of rt Urinary Problem. 14:44 Patient presents to the ED with dysuria, reported mild flank pain for the past 3 weeks. rt States that symptoms have not changed. Took an antibiotic that was old, does not recall what it was. This gave patient relief. Patient denies other acute complaints at this time, symptoms are mild in severity, no other aggravating alleviating factors.. Historical: - Allergies: 12:55 No Known Allergies; db - PMHx: 12:55 diabetes mellitus; High Cholesterol; Hypertension; db - PSHx: 12:55 Cholecystectomy; Weight loss surgery; db - Immunization history:: Adult Immunizations unknown. - Infectious Disease History:: Denies. - Social history:: Smoking status: Patient denies any tobacco usage or history of. - Family history:: not pertinent. ROS: 14:44 Constitutional: Negative for fever, chills, and weight loss, Abdomen/GI: Negative for rt abdominal pain, nausea, vomiting, diarrhea, and constipation, Skin: Negative for injury, rash, and discoloration, 14:44 Back: Positive for flank pain, Negative for injury or acute deformity, 14:44 : Positive for burning with urination, Negative for hematuria, Exam: 14:44 Constitutional: This is a well developed, well nourished patient who is awake, alert, rt and in no acute distress. Head/Face: Normocephalic, atraumatic. Cardiovascular: Regular rate and rhythm with a normal S1 and S2. No gallops, murmurs, or rubs. Normal PMI, no JVD. No pulse deficits. Respiratory: Lungs have equal breath sounds bilaterally, clear to auscultation and percussion. No rales, rhonchi or wheezes noted. No increased work of breathing, no retractions or nasal flaring. Abdomen/GI: Soft, non-tender, with normal bowel sounds. No distension or tympany. No guarding or rebound. No evidence of tenderness throughout. Skin: Warm, dry with normal turgor. Normal color with no rashes, no lesions, and no evidence of cellulitis. 14:44 Back: No costovertebral angle tenderness, Vital Signs: 12:53 BP 134 / 66; Pulse 82; Resp 18; Temp 98; Pulse Ox 98% ; Weight 70.31 kg; Height 4 ft. db 10 in. ; 14:11 BP 129 / 72; Pulse 76; Resp 18; Pulse Ox 99% on R/A; ld1 12:53 Body Mass Index 32.39 (70.31 kg, 147.32 cm) db MDM: 13:13 Patient medically screened. rt 14:44 Differential Diagnosis UTI, pyelonephritis, kidney stone. Data reviewed: vital signs, rt nurses notes, lab test result(s). Test considered but Not performed: CT: Benign abdominal examination, negative urinalysis, CT scan is not indicated to rule out pyelonephritis, Obstructive uropathy. Care significantly affected by the following chronic conditions: Diabetes. Counseling: I had a detailed discussion with the patient and/or guardian regarding the historical points, exam findings, and any diagnostic results supporting the discharge/admit diagnosis, lab results, the need for outpatient follow up. 10/10 13:17 Order name: THOMAS; Complete Time: 13:54 rt Administered Medications: No medications were administered Disposition Summary: 10/11/23 14:00 Discharge Ordered Notes: Location: Home rt Problem: new rt Symptoms: are unchanged rt Condition: Stable rt Diagnosis - Dysuria rt Followup: rt - With: Private Physician - When: 7 - 10 days - Reason: Discharge Instructions: - Discharge Summary Sheet rt - Dysuria rt Forms: - Medication Reconciliation Form rt - Antibiotic Education rt - Prescription Opioid Use rt - Patient Portal Instructions rt - Leadership Thank You Letter rt Signatures: Dispatcher [employer] Crystal Nathan RN RN Richard Garnica MD MD rt
[2023-10-11 14:30] VITALS: BP 129/72; TEMP 98; O2SAT 99
== END 2023-10-11 14:13 | disposition home or self-care (01) ==
LOC: ER 12:44
DX: R30.0 Dysuria (principal)
CPT/HCPCS: 81001; 99284